=== PATIENT | female | born 1950 | race Caucasian/White ===

== ENCOUNTER 2021-05-17 15:25 | Inpatient (IN) | payer MEDICARE, SELFPAY ==
[2021-05-17] VITALS (8 sets, daily range): BP systolic 143–196; BP diastolic 69–100; PULSE 79–119; RESP 16–18; TEMP 36.9; O2SAT 89–93; BMI 49.1
--- NOTE | 2021-05-17 15:44 | ECG_ITS ---
[facility] Test Date: 2021-05-17 Pat Name: Christina Main Department: Room: Gender: Female Deposit Clerk: : 1950 Requested By: Balwinder Rascon Order Number: [id number] Zee MD: Augie Aguirre M.D. Measurements Intervals [place] Rate: 123 P: NC: QRS: -25 QRSD: 84 T: 67 QT: 309 QTc: 442 Interpretive Statements ATRIAL FIBRILLATION WITH RAPID VENTRICULAR RESPONSE BORDERLINE LEFT AXIS DEVIATION [QRS AXIS < -20] MODERATE VOLTAGE CRITERIA FOR LVH, CONSIDER NORMAL VARIANT [MEETS CRITERIA IN ONE OF: R(aVL), S(V1), R(V5), R(V5/V6)+S(V1)] NONSPECIFIC T-WAVE ABNORMALITY Compared to ECG 01/02/2019 15:31:35 T-wave abnormality now present Sinus rhythm no longer present Electronically Signed On 05-17-2021 18:01:58 CDT by Augie Aguirre M.D. [id number]
--- NOTE | 2021-05-17 15:49 | XR_ITS ---
WS: [id number] Exam: XR chest 1V portable [id number] Date/Time of Exam: 05/17/2021 3:49 PM Reason For Exam: covid pneumonia There are patchy groundglass densities noted throughout the right lung as well as the mid and lower l eft lung. Heart size is normal. The mediastinum is not widened. No pleural effusions. Regional bony e lements are intact. XR/XR chest 1V portable [id number] IMPRESSION: 1. Patchy bilateral pulmonary infiltrates most marked on the right. These findi ngs suggest acute pneumonia. Covid pneumonia can have this appearance.
--- NOTE | 2021-05-17 15:50 | W.ED.GENADLT ---
HPI - General Adult General: Chief complaint: ER Hold Stated complaint: N/V COVID EXPOSURE SOB Time Seen by Provider: 05/17/21 15:39 History of Present Illness: HPI narrative: CC: Shortness of breath, fever and generalized weakness HPI: This is a 70 yo patient w/ hx of CAD, HTN, DM, hypothyroidism presenting to the ED with malaise, generalized weakness, cough sputum production, and fever at home x 14 days. Since onset of symptoms, has had some shortness of breath and decreased PO intake. NO recent travel. Lives at home with covid positive family members. Denies chest pain, N/V, diaphoresis, exertional chest pain, GI or other complaints. Denies any pleuritic chest pain, recent surgery/immobilization/travel, or hematemesis or hx of VTE in the past. Onset: 14 days ago Duration: ongoing for the last 14 days Location: home Severity: moderate Review of Systems Narrative: Constitutional: +subjective fever, +generalized weakness HEENT: No vision changes CV: No chest pain, no palpitations PULM: +cough, +dyspnea. GI: No abdominal pain, no N/V/D. : No dysuria MSKEL: No muscle pain SKIN: No new rashes, no lesions. NEURO: No headache, no focal weakness. HEME: No visible bruises PSYCH: Normal mood PFSH ED PFSH: Medical History (Updated 05/17/21 @ 17:24 by Antoni Garcia MD) Hypertension Osteoporosis Type 2 diabetes mellitus Family History (Updated 05/17/21 @ 17:23 by Antoni Garcia MD) Other CAD (coronary artery disease) Social History (Updated 05/17/21 @ 17:23 by Antoni Garcia MD) Smoking and tobacco status: never smoked Alcohol intake: unknown Substance/Drug Use: never Caregiver/support person: Yes Lives independently: Yes Household members: family Housing: House Physical Exam Narrative: EXAM NARRATIVE: Head: Atraumatic Eyes: PERRL, conjunctiva without injection ENT: Mucous membrane moist NECK: Supple without lymphadenopathy LUNGS: Coarse lung sounds, tachypnea, no crackles/wheezes/rhonchi on exam CV: RRR ABDOMEN: Soft, nontender EXTREMITY: Normal ROM SKIN: No rash or erythema NEURO: Awake and alert. No focal motor deficits. PSYCH: Normal mood and affect. Course Vital Signs: Vital signs: Vital Signs Temperature 98.4 F 05/17/21 15:30 Pulse Rate 64 05/18/21 04:05 Respiratory Rate 20 H 05/18/21 03:57 Blood Pressure 140/74 05/18/21 02:15 Pulse Oximetry 92 05/18/21 03:57 MDM - General Adult MDM Narrative: Medical decision making narrative: 70yo patient presenting to the ED with shortness of breath, cough, and malaise concerning for pneumonia with findings of fever, decreased/junky breath sounds, and tachypnea. Workup today includes XR chest. Given History, Exam, and Workup presentation most consistent with pneumonia.Presentation not consistent with PE, COPD exacerbation, Pneumothorax, TB, Atypical ACS, Esophageal Rupture, Toxic Exposure, Foreign Body Airway Obstruction. Workup: XR Chest, COVID PCR, COVID labs Intervention: Oxygen, remdesivir, observation [3:52] On reassessment, XR findings of ground-glass opacity. Findings consistent with viral pneumonia, suspected COVID. No antigen testing currently in the hospital. PCR sent. atyolanda continues to be in moderate respiratory distress with increased work of breathing and tachypnea. O2 of 93% on 6L NC while observed in the ED. Multiple comorbidities along with no significant improvement in the ED indicates the patient is a candidate for inpatient admission. In the ED, patient went into atrial fibrillation with RVR o the 110-120s. Patient received 500cc of IVF, metropolol 5mg, and PO metoprolol 50mg. I have offered admission and the patient agrees with the plan. Patient continues to AAOx3, without significant increased work of breathing and I do not suspect the patient will decompensate on the wards requiring invasive and non-invasive positive pressure ventilation. Disposition: Admission. Lab Data: Labs: Lab Results 05/17/21 05/17/21 05/17/21 Range/Units 15:30 15:30 15:30 WBC 6.4 (4.0-10.0) 10^3/ uL RBC 4.73 (4.1-5.3) 10^6/u L Hgb 13.8 (11.5-15.3) g/dL Hct 42.7 (37.0-47.0) % MCV 90.3 (81-99) fl MCH 29.2 (28.0-34.0) pg MCHC 32.3 (30.0-36.0) g/dL RDW 12.9 (12.1-15.1) % Plt Count 280 (130-400) 10^3/c mm MPV 11.1 H (7.4-10.4) fL Neut % (Auto) 71.5 % Lymph % (Auto) 16.1 % [place] % (Auto) 8.6 % Eos % (Auto) 0.0 % Baso % (Auto) 0.2 % Neut # (Auto) 4.56 (1.8-7.7) 10^3/u L Lymph # (Auto) 1.0 (0.8-4.8) 10^3/u L [place] # (Auto) 0.6 (0.2-0.9) 10^3/u L Eos # (Auto) 0.0 (0.0-0.8) 10^3/u L Baso # (Auto) 0.0 (0.0-0.1) 10^3/u L Nucleated RBC % (a uto) 0 % Nucleated RBCs # 0.0 /100WBC PT 13.20 (12.1-14.9) SECO NDS INR 0.97 (0.8-1.2) APTT 33.4 (23.9-36.7) SECO NDS Fibrinogen 522 H (174-498) mg/dL D-Dimer 0.78 H (0-0.59) ug/mIFE U Sodium (136-145) mmol/L Potassium (3.5-5.1) mmol/L Chloride (98-107) mmol/L Carbon Dioxide (22-29) mmol/L Anion Gap (5-19) BUN (8-23) mg/dL Creatinine (0.5-0.9) mg/dL GFR Calculation (90-130) mL/min Glucose (65-115) mg/dL Calculated Osmolal ity (285-295) mOsm/k g Lactic Acid (0.5-2.2) mmol/L Calcium (8.5-10.5) mg/dL Ferritin 402 H (15-150) ng/mL Total Bilirubin (0.15-1.2) mg/dL AST (0-32) U/L ALT (0-33) U/L Alkaline Phosphata se (35-105) IU/L Lactate Dehydrogen ase 384 H (135-214) U/L Creatine Kinase (26-192) U/L Troponin T Gen 5 n g/L (0-10) ng/L C-Reactive Protein 163.9 H (0.0-4.9) mg/L NT-Pro-B Natriuret Pep 1187 H (0-125) pg/mL Total Protein (6.6-8.7) g/dL Albumin (3.5-5.2) g/dL Globulin (1.3-4.6) g/dL Procalcitonin 0.14 (0-0.5) ng/mL SARS-CoV-2 Ag (Rap id) (Negative) 05/17/21 05/17/21 05/17/21 Range/Units 15:30 15:30 15:30 WBC (4.0-10.0) 10^3/ uL RBC (4.1-5.3) 10^6/u L Hgb (11.5-15.3) g/dL Hct (37.0-47.0) % MCV (81-99) fl MCH (28.0-34.0) pg MCHC (30.0-36.0) g/dL RDW (12.1-15.1) % Plt Count (130-400) 10^3/c mm MPV (7.4-10.4) fL Neut % (Auto) % Lymph % (Auto) % [place] % (Auto) % Eos % (Auto) % Baso % (Auto) % Neut # (Auto) (1.8-7.7) 10^3/u L Lymph # (Auto) (0.8-4.8) 10^3/u L [place] # (Auto) (0.2-0.9) 10^3/u L Eos # (Auto) (0.0-0.8) 10^3/u L Baso # (Auto) (0.0-0.1) 10^3/u L Nucleated RBC % (a uto) % Nucleated RBCs # /100WBC PT (12.1-14.9) SECO NDS INR (0.8-1.2) APTT (23.9-36.7) SECO NDS Fibrinogen (174-498) mg/dL D-Dimer (0-0.59) ug/mIFE U Sodium 135 L (136-145) mmol/L Potassium 3.2 L (3.5-5.1) mmol/L Chloride 94 L (98-107) mmol/L Carbon Dioxide 22 (22-29) mmol/L Anion Gap 22.2 H (5-19) BUN 12 (8-23) mg/dL Creatinine 0.8 (0.5-0.9) mg/dL GFR Calculation 70.9 L (90-130) mL/min Glucose 314 H (65-115) mg/dL Calculated Osmolal ity 292 (285-295) mOsm/k g Lactic Acid (0.5-2.2) mmol/L Calcium 8.4 L (8.5-10.5) mg/dL Ferritin (15-150) ng/mL Total Bilirubin 0.7 (0.15-1.2) mg/dL AST 24 (0-32) U/L ALT 20 (0-33) U/L Alkaline Phosphata se 100 (35-105) IU/L Lactate Dehydrogen ase (135-214) U/L Creatine Kinase 52 (26-192) U/L Troponin T Gen 5 n g/L 13 H (0-10) ng/L C-Reactive Protein (0.0-4.9) mg/L NT-Pro-B Natriuret Pep (0-125) pg/mL Total Protein 6.6 (6.6-8.7) g/dL Albumin 3.2 L (3.5-5.2) g/dL Globulin 3.4 (1.3-4.6) g/dL Procalcitonin (0-0.5) ng/mL SARS-CoV-2 Ag (Rap id) Positive H (Negative) 05/17/21 Range/Units 16:15 WBC (4.0-10.0) 10^3/ uL RBC (4.1-5.3) 10^6/u L Hgb (11.5-15.3) g/dL Hct (37.0-47.0) % MCV (81-99) fl MCH (28.0-34.0) pg MCHC (30.0-36.0) g/dL RDW (12.1-15.1) % Plt Count (130-400) 10^3/c mm MPV (7.4-10.4) fL Neut % (Auto) % Lymph % (Auto) % [place] % (Auto) % Eos % (Auto) % Baso % (Auto) % Neut # (Auto) (1.8-7.7) 10^3/u L Lymph # (Auto) (0.8-4.8) 10^3/u L [place] # (Auto) (0.2-0.9) 10^3/u L Eos # (Auto) (0.0-0.8) 10^3/u L Baso # (Auto) (0.0-0.1) 10^3/u L Nucleated RBC % (a uto) % Nucleated RBCs # /100WBC PT (12.1-14.9) SECO NDS INR (0.8-1.2) APTT (23.9-36.7) SECO NDS Fibrinogen (174-498) mg/dL D-Dimer (0-0.59) ug/mIFE U Sodium (136-145) mmol/L Potassium (3.5-5.1) mmol/L Chloride (98-107) mmol/L Carbon Dioxide (22-29) mmol/L Anion Gap (5-19) BUN (8-23) mg/dL Creatinine (0.5-0.9) mg/dL GFR Calculation (90-130) mL/min Glucose (65-115) mg/dL Calculated Osmolal ity (285-295) mOsm/k g Lactic Acid 1.5 (0.5-2.2) mmol/L Calcium (8.5-10.5) mg/dL Ferritin (15-150) ng/mL Total Bilirubin (0.15-1.2) mg/dL AST (0-32) U/L ALT (0-33) U/L Alkaline Phosphata se (35-105) IU/L Lactate Dehydrogen ase (135-214) U/L Creatine Kinase (26-192) U/L Troponin T Gen 5 n g/L (0-10) ng/L C-Reactive Protein (0.0-4.9) mg/L NT-Pro-B Natriuret Pep (0-125) pg/mL Total Protein (6.6-8.7) g/dL Albumin (3.5-5.2) g/dL Globulin (1.3-4.6) g/dL Procalcitonin (0-0.5) ng/mL SARS-CoV-2 Ag (Rap id) (Negative) Imaging Data^: Other Imaging: Radiologist's impression: [address] [id number] ReportSigned Patient: Christina Main #: [id number]: 1950Acct#:[id number]/Sex: 70 / FADM Date: 05/17/21Loc: ERRoom/Bed:Attending Dr: Ordering Provider/Ordering MD: Balwinder Rascon MD Date of Service: 05/17/21 Procedure(s): XR chest 1V portable [id number] Accession Number(s): [id number] Report Number: [id number] WS: [id number] Exam: XR chest 1V portable [id number] Date/Time of Exam: 05/17/2021 3:49 PM Reason For Exam: covid pneumonia There are patchy groundglass densities noted throughout the right lung as well as the mid and lower left lung. Heart size is normal. The mediastinum is not widened. No pleural effusions. Regional bony elements are intact. XR/XR chest 1V portable [id number] IMPRESSION: 1. Patchy bilateral pulmonary infiltrates most marked on the right. These findings suggest acute pneumonia. Covid pneumonia can have this appearance. Dictated By:Yves Dial By:Yves Dial Date/Time:05/17/21 1605DD/ 1604 Discharge Plan Discharge Patient Disposition: Admitted As Inpatient Admit Provider: Antoni Garcia Clinical Impression: Pneumonia due to 2019-nCoV, Hypoxemia, Atrial fibrillation with RVR Condition: Stable Coding Level of Care Code ED Bit Shaver for Adriana Rankin
[2021-05-17 15:53] LABS: Basophils % 0.2 %; Hematocrit 42.7 % (37.0-47.0); Hemoglobin 13.8 g/dL (11.5-15.3); Lymphocytes % 16.1 %; Mean Corpuscular HGB Conc 32.3 g/dL (30.0-36.0); Mean Corpuscular Hemoglobin 29.2 pg (28.0-34.0); Mean Corpuscular Volume 90.3 fl (81-99); Mean Platelet Volume 11.1 fL (7.4-10.4); Monocytes # 0.6 10^3/uL (0.2-0.9); Monocytes % 8.6 %; Neutrophils # 4.56 10^3/uL (1.8-7.7); Neutrophils % 71.5 %; Nucleated Red Blood Cells % 0 %; Platelet Count 280 10^3/cmm (130-400); Red Blood Count 4.73 10^6/uL (4.1-5.3); Red Cell Distribution Width 12.9 % (12.1-15.1); White Blood Count 6.4 10^3/uL (4.0-10.0)
[2021-05-17 16:03] LABS: INR 0.97 (0.8-1.2)
[2021-05-17 16:04] LABS: Fibrinogen 522 mg/dL (174-498); Partial Thromboplastin Time 33.4 SECONDS (23.9-36.7)
[2021-05-17 16:07] LABS: D Dimer 0.78 ug/mIFEU (0-0.59)
--- NOTE | 2021-05-17 16:12 | PC.PHAR ---
pt states she takes care of her medications-pt states she takes the medications entered-pt states she takes all her meds in the am except for the gabapentin tid
[2021-05-17 16:18] LABS: Troponin T (5th) Once 13 ng/L (0-10)
[2021-05-17 16:25] LABS: NT Pro B Type Natriuretic Pept 1187 pg/mL (0-125); Procalcitonin 0.14 ng/mL (0-0.5)
--- NOTE | 2021-05-17 16:34 | CTR_ITS ---
PROCEDURE INFORMATION: Exam: CTA Chest With Contrast Exam date and time: 05/17/2021 4:34 PM Age: 70 years old Clinical indication: Shortness of breath; Additional info: Evaluate for pe. SOB, back pain, weakness TECHNIQUE: Imaging protocol: Computed tomographic angiography of the chest with contrast. 3D rendering (Not supervised by radiologist): MIP and/or 3D reconstructed images were created by the technologist. Radiation optimization: All CT scans at this facility use at least one of these dose optimization techniques: automated exposure control; mA and/or kV adjustment per patient size (includes targeted exams where dose is matched to clinical indication); or iterative reconstruction. Contrast material: VISI 320; Contrast volume: 84 ml; Contrast route: INTRAVENOUS (IV); COMPARISON: No relevant prior studies available. RADIATION DOSE METRICS: Total DLP (mGy-cm): 515.76 FINDINGS: Pulmonary arteries: Normal. No pulmonary emboli. Aorta: Unremarkable. No aortic aneurysm. No aortic dissection. Lungs: Patchy bilateral airspace opacities consistent with an infectious process. Pleural spaces: Unremarkable. No pneumothorax. No pleural effusion. Heart: Unremarkable. No cardiomegaly. No pericardial effusion. Lymph nodes: Unremarkable. No enlarged lymph nodes. Liver: Hepatic steatosis. Bones/joints: Unremarkable. No acute fracture. Soft tissues: Unremarkable. CT/CT angio chest PE protcl [id number] IMPRESSION: 1. Negative for pulmonary embolus 2. Patchy bilateral airspace opacities consistent with an infectious process. 3. Hepatic steatosis. Radiation Dose CTDIVOL = (mGy): DLP = 515.76 (mGy-cm)
[2021-05-17 16:36] LABS: C Reactive Protein 163.9 mg/L (0.0-4.9); Ferritin 402 ng/mL (15-150); Lactate Dehydrogenase 384 U/L (135-214)
--- NOTE | 2021-05-17 16:41 | P.HP_ITS ---
Providers/Chief Complaint Primary Care Provider: Delmer Green DO Chief Complaint: N/V COVID EXPOSURE SOB History of Present Illness Christina Main is a 70 year old female with past medical history of hypertension, type 2 diabetes mellitus, osteoporosis presented to the ER today because of worsening myalgias for last 2 weeks, difficulty in breathing and cough for last 3 days. Patient states she lives with her who tested positive around 4 days ago and is admitted to hospital for now. Blood work in the ER showed a white count 6.4, hemoglobin 13.8, D-dimer 0.78, sodium 135, potassium 3.2, creatinine 0.8, lactate of 1.5, ferritin of 408, CPK of 52, CRP of 163, proBNP of 1100 please chest x-ray as below. Review of Systems General: Reports: 10 or more systems reviewed and unremarkable except in HPI and below Const: Denies: fever(s), chills, body aches, change in appetite, change in weight, malaise, night sweats, diaphoresis, change in sleep pattern, daytime sleepiness or snoring Eyes: Denies: change in vision, blurry vision, photophobia, eye discomfort or eye discharge ENMT: Denies: throat pain, enlarged tonsils, hoarseness, mouth pain, oral sores, dry mouth, tinnitus, nasal congestion or post nasal drip Card: Denies: chest pain, palpitations, irregular heart rhythm, edema, swelling of feet/ankles, lightheadedness, syncope, pre-syncope, dyspnea on exertion, orthopnea, leg pain with exertion or acrocyanosis Resp: Denies: dyspnea, productive cough, non-productive cough, wheezing, stridor, pain on inspiration, change in phlegm color, hemoptysis or chest congestion GI: Denies: abdominal pain, nausea, vomiting, hematemesis, coffee ground emesis, dysphagia, heartburn, diarrhea, constipation, bloating, GI cramping, change in bowel habits, pain on defecation, hematochezia or melena : Denies: flank pain, dysuria, urinary frequency, urinary urgency, urinary hesitancy, nocturia or hematuria Musc: Denies: neck pain, back pain, extremity pain, joint pain, joint swelling, joint redness, joint stiffness or limited range of motion Neuro: Denies: headache(s), numbness in extremities, weakness in extremities, sensory changes, lack of coordination, difficulty walking, frequent falls, dizziness, vertigo, confusion, Slurred speech present, difficulty communicating thoughts or seizure-like activity Psych: Denies: anxiety, depression, mood swings, panic attacks, hopelessness or irritability Endo: Denies: polyuria, polydipsia, tired all the time, cold intolerance, excessive sweating, flushing or heat intolerance Damian/Lymph: Denies: easy bruising or easy bleeding All/Imm: Denies: tongue swelling, facial swelling or acute wheezing Medications/Allergies Home Medications Medication Instructions Recorded Confirmed Last Taken Type allopurinol 300 mg PO QAM 05/17/21 05/17/21 05/17/21 14:00 History amlodipine 10 mg PO QAM 05/17/21 05/17/21 05/17/21 14:00 History dulaglutide [Trulicity] 1.5 mg SUBCUT Q7D 05/17/21 05/17/21 05/17/21 History duloxetine 30 mg PO QAM 05/17/21 05/17/21 05/17/21 14:00 History esomeprazole magnesium 20 mg PO QAM 05/17/21 05/17/21 05/17/21 14:00 History gabapentin 400 mg PO TID 05/17/21 05/17/21 05/17/21 14:00 History levothyroxine [Synthroid] 137 mcg PO QAM 05/17/21 05/17/21 05/17/21 14:00 History losartan 100 mg PO QAM 05/17/21 05/17/21 05/17/21 14:00 History ondansetron HCl 4 mg PO Q6H PRN 05/17/21 05/17/21 05/17/21 History pioglitazone 45 mg PO QAM 05/17/21 05/17/21 05/17/21 14:00 History raloxifene 60 mg PO QAM 05/17/21 05/17/21 05/17/21 14:00 History Allergies Allergy/AdvReac Type Severity Reaction Status Date / Time oxycodone Allergy ADR/ALGY-Pa Verified 05/17/21 16:11 lpitations sulfamethoxazole Allergy ADR-Nausea Verified 05/17/21 16:11 [From Bactrim] trimethoprim [From Bactrim] Allergy ADR-Nausea Verified 05/17/21 16:11 PFSH Acute PFSH: Medical History (Updated 05/17/21 @ 17:24 by Antoni Garcia MD) Hypertension Osteoporosis Type 2 diabetes mellitus Family History (Updated 05/17/21 @ 17:23 by Antoni Garcia MD) Other CAD (coronary artery disease) Social History (Updated 05/17/21 @ 17:23 by Antoni Garcia MD) Smoking and tobacco status: never smoked Alcohol intake: unknown Substance/Drug Use: never Caregiver/support person: Yes Lives independently: Yes Household members: family Housing: House Vitals/I&O/Wt Last Vital Signs Temp 98.4 F 05/17/21 15:30 Pulse 96 05/17/21 15:30 Resp 18 05/17/21 15:30 BP 166/100 05/17/21 15:30 Pulse Ox 90 05/17/21 15:39 Weight last 48 hrs Weight 117.934 kg Physical Exam Narrative: EXAM NARRATIVE: General: No acute distress, AO x3, morbidly obese on 6 L HEENT: PERRLA, pupils bilaterally equal and reactive Chest: Normal vesicular breath sounds, no added sounds, equal good air entry bilaterally CVS: S1-S2 regular, no murmurs, no tachycardia, no gallops, no rubs Abdomen: Soft, nontender, no organomegaly, bowel sounds present Neuro: No focal deficits, no facial deformity, AO x3, power 5/5 in all limbs Data : 05/17/21 15:30 05/17/21 15:30 A&P Assessment and plan (1) Hypoxemia: Status: Acute (2) Pneumonia due to 2019-nCoV: Status: Suspected (3) Bilateral pneumonia: Status: Acute (4) Atrial fibrillation with RVR: Status: Acute (5) Type 2 diabetes mellitus: Status: Acute (6) Hypertension: Status: Acute (7) Afib: Status: Acute Additional A&P Information Hypoxemia secondary to bilateral pneumonia: As per the history most likely Covid pneumonia. Covid PCR still pending. Oxygen supplementation keeping saturation over 88%. Check sputum culture, procalcitonin, urine Legionella, bacterial antigen, blood culture, MRSA swab. High suspicion of bacterial pneumonia as well. For now start patient on vancomycin and ceftriaxone and azithromycin to cover for severe community-acquired pneumonia. Dexamethasone 6 mg daily. Remdesivir to finish a 5-day course. Vitamin C, zinc. Advair, Spiriva. Pulmonary toilet with incentive spirometry flutter valve. We will monitor inflammatory markers including ferritin, ESR, CRP, D-dimer, fibrinogen. If getting elevated will dose Actemra. Patient was made aware of the same and he has given verbal consent. D-dimer elevated. Check CTA. For now start patient on Eliquis 5 mg twice daily. Will monitor for anemia or blood loss. Strict input output charting, daily weights. Hypertension: Goal blood pressure less than 140/90 mmHg. Continue with home dose of amlodipine, losartan. Type 2 diabetes mellitus: Stop OHA's. Insulin sliding scale at moderate dose protocol. Hypothyroidism: Continue home dose of levothyroxine. Atrial fibrillation. No known history. Start on metoprolol 50 mg twice daily. If patient has atrial fibrillation for more than 48 hours will need long-term anticoagulation. As patient's COVID-19 is still pending for now we will admit the patient to [facility]. Will transfer to to weigh once COVID-19 comes back positive. Full code. Eliquis will be DVT prophylaxis with. Protonix for PUD prophylaxis. Cardiac carb consistent diet. Attestations Medical Necessity Statement*: Admission for more than 2 midnights for management of hypoxemia secondary to bilateral pneumonia, possible COVID-19 pneumonia. Time Spent in Patient Care: Greater than 35 minutes (>than 50% of time spent in counselling and/or direct pt care on unit) . Coding Level of Care Code Acute [place] [employer] for [facility] Diagnoses Hypoxemia R09.02 Pneumonia due to 2019-nCoV U07.1; J12.82 Bilateral pneumonia J18.9 Atrial fibrillation with RVR I48.91 Type 2 diabetes mellitus E11.9 Hypertension I10 Afib I48.91
[2021-05-17 16:42] LABS: Lactic Sepsis W/Reflex 1.5 mmol/L (0.5-2.2)
[2021-05-17 17:05] LABS: Alanine Aminotransferase 20 U/L (0-33); Albumin Level 3.2 g/dL (3.5-5.2); Alkaline Phosphatase 100 IU/L (35-105); Anion Gap 22.2 (5-19); Aspartate Amino Transferase 24 U/L (0-32); Blood Urea Nitrogen 12 mg/dL (8-23); Calcium 8.4 mg/dL (8.5-10.5); Carbon Dioxide 22 mmol/L (22-29); Chloride 94 mmol/L (98-107); Creatine Phosphokinase 52 U/L (26-192); Globulin 3.4 g/dL (1.3-4.6); Glomerular Filtration Rate 70.9 mL/min (90-130); Glucose 314 mg/dL (65-115); Osmolality Calculated 292 mOsm/kg (285-295); Potassium 3.2 mmol/L (3.5-5.1); Sodium 135 mmol/L (136-145); Total Bilirubin 0.7 mg/dL (0.15-1.2); Total Protein 6.6 g/dL (6.6-8.7)
[2021-05-17 17:26] LABS: SARS Covid-2 Antigen Positive (Negative)
[2021-05-17] MEDS: cefTRIAXone 1,000 MG in sodium chloride 0.9% (plus) 50 ML 100 MG IV (17:36)
[2021-05-17] MEDS: sodium chloride 0.9% 250 ML IV (17:36)
[2021-05-17] MEDS: metoprolol tartrate 1 mg/1 mL SDV 5 mL 5 MG IVP (17:37)
[2021-05-17] MEDS: dexamethasone 4 mg/mL INJ 6 MG IVP (17:37)
[2021-05-17] MEDS: remdesivir 200 MG in sodium chloride 0.9% (100 ml) 100 ML 100 MG IV (17:37)
[2021-05-17] MEDS: iodixanol 320 mg/mL 100mL Btl IV (18:42)
--- NOTE | 2021-05-17 19:14 | PC.NURSE ---
Report from YASMIN Jenkins
--- NOTE | 2021-05-17 20:28 | PC.NURSE ---
Pt SATS consistently ranging from 84%-89% on 6L O2 via NC. Placed pt on 10L O2 via NRB temporarily and called Dr. Painting. She ordered that pt be placed on heated high flow NC. Called RT. Pt appears to be in NAD at this time.
--- NOTE | 2021-05-17 20:58 | PC.NURSE ---
Unable to provide urine specimen; bedside toilet in room. Asked pt to call out when she is able to provide urine.
[2021-05-17] MEDS: benzonatate 100 mg Capsule PO (21:50)
[2021-05-17] MEDS: azithromycin 500 MG in sodium chloride 0.9% 250 ML 250 MG IV (21:50)
[2021-05-17] MEDS: apixaban 5 mg Tablet PO (22:32)
[2021-05-17] MEDS: famotidine 20 mg/2 mL INJ IVP (22:33)
[2021-05-17 22:40] LABS: Glucose Point of Care 468 mg/dL (70-110)
[2021-05-17 23:26] LABS: Bilirubin Urine 1+ (Negative); Blood Urine Neg (Negative); Glucose Urine UA 4+ (Normal); Ketones Urine 1+ (Negative); Leukocyte Esterase Urine Negative (Negative); Nitrate Urine Negative (Negative); Protein Urine 1+ (Negative); Urine Appearance Clear (CLEAR); Urine Color Dark Yellow (Yellow); Urobilinogen Urine 1 mg/dL (Negative); pH Urine 5 (5-7)
[2021-05-17 23:27] LABS: Add Urine Culture? No; Add Urine Microscopic? YES; Amorphous Sediment Urine TRACE /hpf; Bacteria Urine TRACE /hpf; Fine Granular Casts Urine 0-4 /lpf; Hyaline Casts Urine 0-4 /lpf; Mucus Urine 1+ /hpf; RBC Urine 0-4 /hpf (0-2); Squamous Epithelial Cell Urine 0-4 /hpf (0-5); WBC Urine 0-4 /hpf (0-5)
[2021-05-18] VITALS (21 sets, daily range): BP systolic 108–141; BP diastolic 54–76; PULSE 59–80; RESP 12–26; TEMP 36.4–36.8; O2SAT 89–93
--- NOTE | 2021-05-18 00:13 | PC.PHAR ---
Pharmacokinetic dosing service Date: 05/18/21 Time: 29 Objective: Patient: Christina Main Floor: er-14 Age: 70 yo Serum creatinine: 0.8 mg/dL Height: 61.0 Inches Weight (kg): 117.934 Diagnosis: Relevant medical/social history: Cultures and sensitivities: Other labs: Assessment: IBW (kg): 47.80 Dosing wt(kg): 117.934 Estimated Creatinine clearance (ml/min): 49.4 CRCL method: Cockcroft and Gault using ibw(default). Drug selected: Vancomycin Loading dose (mg): 0 Vd (liters): 106.1 (factor used: 0.9 L/kg) Tye (hr-1): 0.045 Half life (hrs): 15.40 Recommended dose: 1500 mg Interval: 18 hrs Infusion time (hrs): 1.5 Predicted peak (mcg/mL): 24.6 Predicted trough (mcg/mL): 11.71 Total body weight is being used for vancomycin dosing. Renal function is stable [ ] /unstable [ ] Recommendations: Give Vancomycin 1500 mg q 18 hrs with an expected Cpeak of 24.6 mcg/ml and an expected Ctrough of 11.71 mcg/ml Renal dosing of other antibiotics (review renal dosing of other medications and list guidelines here): Thank you for the consult, will continue to follow. Signature: Mara Collazo [facility]
[2021-05-18] MEDS: vancomycin 1,500 MG/300 ML PIGGYBACK 200 MG IV ×2 (01:40→20:24)
[2021-05-18] MEDS: ipratropium-albuterol 3 mL Neb INHALATION ×6 (01:45→20:10)
[2021-05-18 05:13] LABS: Magnesium 1.9 mg/dL (1.7-2.3); Phosphorus 2.4 mg/dL (2.5-4.5)
[2021-05-18 05:21] LABS: C Reactive Protein 184.9 mg/L (0.0-4.9)
[2021-05-18 05:36] LABS: D Dimer 0.63 ug/mIFEU (0-0.59)
--- NOTE | 2021-05-18 06:00 | XRR_ITS ---
PROCEDURE INFORMATION: Exam: XR Chest Exam date and time: 05/18/2021 6:00 AM Age: 70 years old Clinical indication: Shortness of breath; Patient HX: F/u covid. On high flow oxygen. TECHNIQUE: Imaging protocol: XR of the chest. Views: 1 view. Total images: 1 COMPARISON: CR XR chest 1V portable [id number] 05/17/2021 3:50 PM FINDINGS: Lungs: Bilateral pulmonary opacities are again noted and appear unchanged. Pleural spaces: Unremarkable. No pleural effusion. No pneumothorax. Heart/Mediastinum: Heart is enlarged but stable when compared to the prior exam. Bones/joints: Osseous structures are unchanged from the prior exam. XR/XR chest 1V portable [id number] IMPRESSION: 1. Heart is enlarged but stable when compared to the prior exam. 2. Bilateral pulmonary opacities are again noted and appear unchanged.
[2021-05-18 06:19] LABS: Erythrocyte Sedimentation Rate 51 mm/hr (0-15)
[2021-05-18] MEDS: duloxetine 30 mg Capsule PO (06:21)
[2021-05-18] MEDS: amlodipine 10 mg Tablet PO (06:21)
[2021-05-18] MEDS: allopurinol 300 mg Tablet PO (06:21)
[2021-05-18] MEDS: pioglitazone 30 mg Tablet 45 MG PO (06:22)
[2021-05-18] MEDS: levothyroxine 137 mcg Tablet PO (06:22)
[2021-05-18] MEDS: losartan 50 mg Tablet 100 MG PO (06:22)
[2021-05-18] MEDS: pantoprazole DR 40 mg Tablet PO (06:22)
[2021-05-18 07:43] LABS: Glucose Point of Care 391 mg/dL (70-110)
[2021-05-18] MEDS: budesonide 0.5 mg/2 mL Neb INHALATION ×2 (08:01→20:10)
[2021-05-18] MEDS: gabapentin 400 mg Capsule PO (08:58)
[2021-05-18] MEDS: apixaban 5 mg Tablet PO ×2 (08:58→20:24)
[2021-05-18] MEDS: zinc gluconate 50 mg Tablet PO (08:58)
[2021-05-18] MEDS: metoprolol tartrate 50 mg Tablet PO ×2 (08:58→20:24)
[2021-05-18] MEDS: ascorbic acid 500 mg Tablet 1000 MG PO ×2 (08:59→17:27)
[2021-05-18] MEDS: famotidine 20 mg/2 mL INJ IVP ×2 (08:59→22:34)
[2021-05-18] MEDS: benzonatate 100 mg Capsule PO ×3 (08:59→20:24)
--- NOTE | 2021-05-18 11:45 | P.PN_ITS ---
Subjective Subjective: Interval history: Today morning patient seen in the ER. Overnight was transitioned over to heated high flow. Currently on 45 L 60% saturating 91%. Blood sugars have been running on the higher side. Patient feels weak and tired. Does not have incentive spirometry flutter valve presently. No documented urine output in system. Vitals/I&O/Wt Last Vital Signs Temp 98.4 F 05/17/21 15:30 Pulse 75 05/18/21 08:19 Resp 18 05/18/21 08:02 BP 141/63 05/18/21 08:00 Pulse Ox 91 05/18/21 08:02 05/17/21 05/18/21 05/18/21 22:59 06:59 14:59 Intake Total 400 / 400 250 / 650 Balance 400 / 400 250 / 650 Weight last 48 hrs Weight 117.934 kg Physical Exam Narrative: EXAM NARRATIVE: General: No acute distress, AO x3, morbidly obese HEENT: PERRLA, pupils bilaterally equal and reactive Chest: Normal vesicular breath sounds, no added sounds, equal good air entry bilaterally CVS: S1-S2 regular, no murmurs, no tachycardia, no gallops, no rubs Abdomen: Soft, nontender, no organomegaly, bowel sounds present Neuro: No focal deficits, no facial deformity, AO x3, power 5/5 in all limbs Urinary Catheter Management^: Angelo: Cath Placed During This Visit: yes Reason for Continuing Indwelling Catheter: Accurate Measurement of Urinary Output in Critically Ill Patients Urinary Catheter Date of Insertion: 05/17/21 Urinary Catheter Time of Insertion: 23:00 Data : 05/18/21 04:20 05/18/21 04:20 Micro: Microbiology 05/17/21 19:53 MRSA Culture - Final Nose 05/17/21 23:00 Bacterial Antigens - Final Urine,Voided 05/17/21 23:00 Legionella Urinary Antigen - Final Urine Catheterized A&P Assessment and plan (1) Hypoxemia: Status: Acute (2) Pneumonia due to 2019-nCoV: Status: Suspected (3) Bilateral pneumonia: Status: Acute (4) Atrial fibrillation with RVR: Status: Acute (5) Type 2 diabetes mellitus: Status: Acute (6) Hypertension: Status: Acute (7) Afib: Status: Acute Additional A&P Information Hypoxemia secondary COVID-19 pneumonia: Moderate disease. Oxygen supplementation keeping saturation over 88%. Screen negative, urine Legionella, bacterial antigen negative, MRSA swab. Blood culture still not drawn. For now continue with vancomycin, ceftriaxone and azithromycin. Dexamethasone 6 mg daily. Remdesivir to finish a 5-day course. Vitamin C, zinc. DuoNeb every 4 hour, budesonide twice daily Pulmonary toilet with incentive spirometry flutter valve. We will monitor inflammatory markers including ferritin, ESR, CRP, D-dimer, fibrinogen. Inflammatory markers trending up. Patient requiring higher oxygen supplementation will give 1 dose of Actemra today. D-dimer elevated. CTA negative for pulmonary embolism. For now start patient on Eliquis 5 mg twice daily as patient is still requiring high oxygen supplementation. Most likely will need anticoagulation for at least 14 days as an outpatient. Will monitor for anemia or blood loss. Strict input output charting, daily weights. Try to keep net negative as possible. IV Lasix 40 mg stat. Echocardiogram. Hypertension: Goal blood pressure less than 140/90 mmHg. Continue with home dose of amlodipine, losartan. Type 2 diabetes mellitus: Stop OHA's. Blood sugars elevated. Insulin sliding scale high-dose protocol. Lantus 30 units twice daily. Hypothyroidism: Continue home dose of levothyroxine. Atrial fibrillation: Rate better controlled. No known history. Continue with metoprolol 50 mg twice daily. If patient has atrial fibrillation for more than 48 hours will need long-term anticoagulation. Full code. Eliquis will be DVT prophylaxis with. Protonix for PUD prophylaxis. Cardiac carb consistent diet. Attestations Medical Necessity Statement*: Requires further hospitalization for management of severe hypoxia secondary COVID-19 pneumonia, atrial fibrillation Time Spent in Patient Care: Greater than 35 minutes (>than 50% of time spent in counselling and/or direct pt care on unit) . Coding Level of Care Code Acute Health Specialist for [facility] Fwd Diagnoses Hypoxemia R09.02 Pneumonia due to 2019-nCoV U07.1; J12.82 Bilateral pneumonia J18.9 Atrial fibrillation with RVR I48.91 Type 2 diabetes mellitus E11.9 Hypertension I10 Afib I48.91
[2021-05-18 11:51] LABS: Glucose Point of Care 409 mg/dL (70-110)
[2021-05-18 13:25] LABS: Basophils % 0.2 %; Hematocrit 37.3 % (37.0-47.0); Hemoglobin 11.9 g/dL (11.5-15.3); Lymphocytes # 0.6 10^3/uL (0.8-4.8); Lymphocytes % 11.3 %; Mean Corpuscular HGB Conc 31.9 g/dL (30.0-36.0); Mean Corpuscular Hemoglobin 29.2 pg (28.0-34.0); Mean Corpuscular Volume 91.4 fl (81-99); Mean Platelet Volume 11.2 fL (7.4-10.4); Monocytes # 0.5 10^3/uL (0.2-0.9); Monocytes % 9.3 %; Neutrophils # 3.77 10^3/uL (1.8-7.7); Neutrophils % 74.8 %; Nucleated Red Blood Cells % 0 %; Platelet Count 266 10^3/cmm (130-400); Red Blood Count 4.08 10^6/uL (4.1-5.3); Red Cell Distribution Width 13.1 % (12.1-15.1)
[2021-05-18 13:34] LABS: Alanine Aminotransferase 20 U/L (0-33); Albumin Level 3.1 g/dL (3.5-5.2); Alkaline Phosphatase 92 IU/L (35-105); Anion Gap 19.6 (5-19); Aspartate Amino Transferase 23 U/L (0-32); Blood Urea Nitrogen 19 mg/dL (8-23); Calcium 8.1 mg/dL (8.5-10.5); Carbon Dioxide 24 mmol/L (22-29); Chloride 98 mmol/L (98-107); Globulin 2.4 g/dL (1.3-4.6); Glomerular Filtration Rate 54.8 mL/min (90-130); Glucose 424 mg/dL (65-115); Osmolality Calculated 306 mOsm/kg (285-295); Potassium 3.6 mmol/L (3.5-5.1); Sodium 138 mmol/L (136-145); Total Bilirubin 0.3 mg/dL (0.15-1.2); Total Protein 5.5 g/dL (6.6-8.7)
[2021-05-18] MEDS: FUROsemide 10 mg/mL SDV 4mL 40 MG IVP (16:23)
[2021-05-18] MEDS: dexamethasone 4 mg/mL INJ 6 MG IVP (16:26)
[2021-05-18] MEDS: tocilizumab 800 MG in sodium chloride 0.9% (100 ml) 100 ML 100 MG IV (17:07)
[2021-05-18] MEDS: potassium chloride ER 20 mEq Tablet 40 MEQ PO (17:08)
[2021-05-18 17:30] LABS: Glucose Point of Care 362 mg/dL (70-110)
[2021-05-18] MEDS: remdesivir 100 MG in sodium chloride 0.9% (100 ml) 100 ML IV (18:40)
[2021-05-18] MEDS: insulin glargine 100 units/1 mL 30 UNIT SUBCUT (19:46)
[2021-05-18 20:56] LABS: Glucose Point of Care 300 mg/dL (70-110)
[2021-05-18] MEDS: azithromycin 500 MG in sodium chloride 0.9% 250 ML 250 MG IV (21:09)
[2021-05-19] VITALS (82 sets, daily range): BP systolic 114–159; BP diastolic 56–92; PULSE 52–100; RESP 12–28; TEMP 36.4–36.8; O2SAT 87–95
[2021-05-19] MEDS: ipratropium-albuterol 3 mL Neb INHALATION ×6 (00:05→20:00)
[2021-05-19] MEDS: cefTRIAXone 1,000 MG in sodium chloride 0.9% (plus) 50 ML 100 MG IV ×2 (00:10→19:59)
[2021-05-19 00:19] LABS: Glucose Point of Care 253 mg/dL (70-110)
[2021-05-19 05:24] LABS: Basophils % 0.3 %; Hematocrit 39.2 % (37.0-47.0); Hemoglobin 12.6 g/dL (11.5-15.3); Lymphocytes # 0.7 10^3/uL (0.8-4.8); Lymphocytes % 9.4 %; Mean Corpuscular HGB Conc 32.1 g/dL (30.0-36.0); Mean Corpuscular Hemoglobin 29.9 pg (28.0-34.0); Mean Corpuscular Volume 92.9 fl (81-99); Mean Platelet Volume 11.7 fL (7.4-10.4); Monocytes # 0.6 10^3/uL (0.2-0.9); Monocytes % 7.8 %; Neutrophils # 5.74 10^3/uL (1.8-7.7); Neutrophils % 79.5 %; Nucleated Red Blood Cells % 0 %; Platelet Count 372 10^3/cmm (130-400); Red Blood Count 4.22 10^6/uL (4.1-5.3); Red Cell Distribution Width 13.1 % (12.1-15.1); White Blood Count 7.2 10^3/uL (4.0-10.0)
[2021-05-19] MEDS: losartan 50 mg Tablet 100 MG PO (05:51)
[2021-05-19] MEDS: amlodipine 10 mg Tablet PO (05:51)
[2021-05-19] MEDS: duloxetine 30 mg Capsule PO (05:51)
[2021-05-19] MEDS: levothyroxine 137 mcg Tablet PO (05:51)
[2021-05-19] MEDS: allopurinol 300 mg Tablet PO (05:51)
--- NOTE | 2021-05-19 06:00 | USCV_ITS ---
Christina Main Age: 70 Gender: F : 1950 Exam Date: 05/19/2021 09:13 Ordering Phys: Antoni Garcia MD Technologist: Yolis Traylor Exam Location: [facility] [place] Indication: Covid, pna, chf BP: 129 / 69 HR: 67 Rhythm: Sinus Technical Quality: Fair MEASUREMENTS (Male / Female) Normal Values 2D ECHO LV Diastolic Diameter PLAX 5.2 cm 4.2 - 5.9 / 3.9 - 5.3 cm LV Systolic Diameter PLAX 2.9 cm LV Chamber Size 4.5 cm IVS Diastolic Thickness 1.1 cm 0.6 - 1.0 / 0.6 - 0.9 cm IVS Systolic Thickness 1.7 cm LVPW Diastolic Thickness 1.2 cm 0.6 - 1.0 / 0.6 - 0.9 cm LVPW Systolic Thickness 1.4 cm RV Chamber Size 3.1 cm LVOT Diameter 1.8 cm LV Ejection Fraction 2D Teich 76.1 % LV Ejection Fraction MOD 2C 61.1 % LV Ejection Fraction 2C AL 63.6 % LA Diameter 3.7 cm LA Width 3.8 cm LA Height 6.4 cm RA Width 3.5 cm RA Height 5.1 cm Aorta at Sinotubular Diameter 2.4 cm M-MODE LV Diastolic Diameter MM 5.8 cm 4.2 - 5.9 / 3.9 - 5.3 cm LV Systolic Diameter MM 3.7 cm LV Ejection Fraction MM Teich 65.4 % IVS Diastolic Thickness MM 1.2 cm 0.6 - 1.0 / 0.6 - 0.9 cm IVS Systolic Thickness MM 1.7 cm LVPW Diastolic Thickness MM 1.3 cm 0.6 - 1.0 / 0.6 - 0.9 cm LVPW Systolic Thickness MM 2.0 cm RV Diastolic Diameter MM 0.8 cm Aortic Annulus Diameter 3.3 cm LA Ao Ratio MM 1.4 MV E Point Septal Separation 0.7 cm DOPPLER AV Peak Velocity 139.0 cm/s LVOT Peak Velocity 93.0 cm/s AV Area Cont Eq vti 1.8 cm squared AV Area Cont Eq pk 1.7 cm squared MV Area PHT 3.4 cm squared Mitral E to A Ratio 1.1 MV E' Velocity 58.0 cm/s Mitral E to MV E' Ratio 11.9 Mitral E to LV E' Lateral Ratio 13.6 Mitral E to LV E' Septal Ratio 10.7 TR Peak Velocity 225.0 cm/s TR Peak Gradient 20.3 mmHg TV Peak E Velocity 68.0 cm/s Right Atrial Pressure 3.0 mmHg Pulmonary Artery Systolic Pressu 23.3 mmHg PV Peak Velocity 76.0 cm/s RV Acceleration Time 0.1 s RV Ejection Time 0.3 s RV AcT/ET 0.4 FINDINGS Left Ventricle Normal left ventricular size. LV systolic function is normal with EF of 55-60%. No regional wall motion abnormalities. Normal diastolic filling pattern. Right Ventricle The right ventricle is normal in size and function. Right Atrium The right atrium is normal in size. Left Atrium The left atrium is dilated Mitral Valve Structurally normal mitral valve without significant stenosis or prolapse. There is mild mitral regurgitation. Aortic Valve Structurally normal aortic valve without significant sclerosis or stenosis. There is no aortic regurgitation. Tricuspid Valve Structurally normal tricuspid valve without significant stenosis or regurgitation. Insufficient TR jet to calculate RVSP Pulmonic Valve Structurally normal pulmonic valve without significant stenosis. There is no pulmonic regurgitation. Pericardium Normal pericardium without effusion. Aorta Normal ascending aorta dimension. CONCLUSIONS LV systolic function is normal with EF of 55-60%. Normal diastolic function Mild mitral regurgitation Mildly dilated left atrium No comparison studies are available Augie Aguirre MD (Electronically Signed) Final Date: 19 May 2021 18:44 S
[2021-05-19 06:40] LABS: Glucose Point of Care 251 mg/dL (70-110)
[2021-05-19 07:25] LABS: Alanine Aminotransferase 16 U/L (0-33); Albumin Level 2.7 g/dL (3.5-5.2); Alkaline Phosphatase 82 IU/L (35-105); Anion Gap 16.4 (5-19); Aspartate Amino Transferase 20 U/L (0-32); Blood Urea Nitrogen 26 mg/dL (8-23); Calcium 8.7 mg/dL (8.5-10.5); Carbon Dioxide 24 mmol/L (22-29); Chloride 98 mmol/L (98-107); Globulin 3.1 g/dL (1.3-4.6); Glomerular Filtration Rate 49.1 mL/min (90-130); Glucose 246 mg/dL (65-115); NT Pro B Type Natriuretic Pept 561 pg/mL (0-125); Osmolality Calculated 293 mOsm/kg (285-295); Potassium 3.4 mmol/L (3.5-5.1); Sodium 135 mmol/L (136-145); Total Bilirubin 0.2 mg/dL (0.15-1.2); Total Protein 5.8 g/dL (6.6-8.7)
[2021-05-19] MEDS: budesonide 0.5 mg/2 mL Neb INHALATION ×2 (08:49→20:00)
[2021-05-19] MEDS: insulin glargine 100 units/1 mL 30 UNIT SUBCUT ×2 (09:05→17:58)
[2021-05-19] MEDS: ascorbic acid 500 mg Tablet 1000 MG PO (09:06)
[2021-05-19] MEDS: apixaban 5 mg Tablet PO ×2 (09:06→21:03)
[2021-05-19] MEDS: benzonatate 100 mg Capsule PO ×3 (09:06→21:03)
[2021-05-19] MEDS: zinc gluconate 50 mg Tablet PO (09:06)
[2021-05-19 09:14] LABS: ABG PCO2 43.9 mmHg (35-45); ABG PH Result 7.39 (7.35-7.45); Alveolar-Arterial Oxygen Gradi 78.9 mmHg (5-10); Base Excess ABG 1.4 mmol/L (-2.0-2.0); Blood Gas Allen Test Pos; Blood Gas Operator Identificat glc; Blood Gas Sample Site Radial, right; Blood Gas Sample Type Arterial; Carboxyhemoglobin 0.5 %THgb (0.4-20.1); HCO3 ABG 26.7 mmol/L (22-26); HGB O2 Sat 87.9 % (95-100); Ionized Calcium Level - ABG 1.2 mmol/L (1.1-1.4); Methemoglobin 0.5 % (0.4-1.5); Oxygen Device BIPAP; Oxygen Saturation ABG 88.7; PO2 ABG 53.8 mmHg (80.0-100.0); Potassium Level - ABG 3.3 mmol/L (3.5-5.0); Total Hemoglobin 13.1 g/dL (12-16)
[2021-05-19 12:27] LABS: Glucose Point of Care 271 mg/dL (70-110)
--- NOTE | 2021-05-19 13:40 | PM.PN ---
Subjective Subjective: Interval history: Patient not doing so well. Currently she is on 100% BiPAP ventilation saturating 92%. On examination she is comfortable, alert oriented. Denies any discomfort or pain. States she is not out of breath. Hemodynamically has remained stable. We had a long discussion about goals of care and CODE STATUS. We discussed that unfortunately patient is requiring high oxygen supplementation at present to maintain her saturations over 90%. We discussed this is most likely secondary to Covid pneumonia. We also discussed that going forward if she not able to maintain her ventilation and saturation only option would be to put her put her on a ventilator. Patient asks water her chances if she goes on a ventilator at that point we discussed that it is seen with patients with COVID-19 unfortunately if the end up on a ventilator they are very sick and the chances of mortality is a little higher as compared to when not on the ventilator along with the fact that the complications are more. Patient states she values her quality of life more than yes life and would not want to be on a mechanical ventilator. Patient's case discussed in detail with her son Mr. Vega over the phone as well. Also offered Mr. Vega that he can come in and visit his mother if he wishes. He states he also has Covid right now and will try to talk to Ms. Escalante on the phone. Vitals/I&O/Wt Last Vital Signs Temp 97.8 F 05/19/21 12:00 Pulse 64 05/19/21 12:00 Resp 22 H 05/19/21 12:00 BP 136/69 05/19/21 12:00 Pulse Ox 91 05/19/21 12:00 05/18/21 05/19/21 05/19/21 22:59 06:59 14:59 Intake Total 560 / 560 700 / 1260 Output Total 700 / 700 350 / 1050 Balance -140 / -140 350 / 210 Weight last 48 hrs Weight 131.905 kg Weight 117.934 kg Physical Exam Narrative: EXAM NARRATIVE: General: No acute distress, AO x3, morbidly obese, on BiPAP ventilation HEENT: PERRLA, pupils bilaterally equal and reactive Chest: Bilateral bronchial breath sounds, decreased air entry all over the lung archuleta, coarse crackles all over the lung archuleta. CVS: S1-S2 regular, no murmurs, no tachycardia, no gallops, no rubs Abdomen: Soft, nontender, no organomegaly, bowel sounds present Neuro: No focal deficits, no facial deformity, AO x3, power 5/5 in all limbs Urinary Catheter Management^: Angelo: Cath Placed During This Visit: yes Reason for Continuing Indwelling Catheter: Acute Urinary Retention or Obstruction Urinary Catheter Date of Insertion: 05/17/21 Urinary Catheter Time of Insertion: 23:00 Data : 05/19/21 05:12 05/19/21 06:32 Micro: Microbiology 05/18/21 14:52 Blood Culture - Preliminary Blood SPECIMEN COLLECTED 05/18/21 14:59 Blood Culture - Preliminary Blood SPECIMEN COLLECTED 05/17/21 19:53 MRSA Culture - Final Nose 05/17/21 23:00 Bacterial Antigens - Final Urine,Voided 05/17/21 23:00 Legionella Urinary Antigen - Final Urine Catheterized A&P Assessment and plan (1) ARDS (adult respiratory distress syndrome): Status: Acute (2) Pneumonia due to 2019-nCoV: Status: Suspected (3) Atrial fibrillation with RVR: Status: Acute (4) Type 2 diabetes mellitus: Status: Acute (5) Hypertension: Status: Acute Additional A&P Information ARDS secondary COVID-19 pneumonia: Severe disease.. Oxygen supplementation keeping saturation over 88%. Post Actemra on May 18. Urine Legionella, bacterial antigen negative, MRSA swab negative, blood cultures preliminary negative. For now low suspicion of bacterial infection. Stop vancomycin as MRSA is negative. Continue with ceftriaxone azithromycin. For now continue with vancomycin, ceftriaxone and azithromycin. Check ABG. Dexamethasone 6 mg daily. Remdesivir to finish a 5-day course. Vitamin C, zinc. DuoNeb every 4 hour, budesonide twice daily Pulmonary toilet with incentive spirometry flutter valve. We will monitor inflammatory markers including ferritin, ESR, CRP, D-dimer, fibrinogen. D-dimer elevated. CTA negative for pulmonary embolism. Continue with Eliquis 5 mg twice daily as patient is still requiring high oxygen supplementation and has persistent atrial fibrillation. Will monitor for anemia or blood loss. Strict input output charting, daily weights. Patient looking euvolemic to mildly dehydrated today. Echocardiogram. Hypertension: Goal blood pressure less than 140/90 mmHg. Continue with home dose of amlodipine. For now hold off on losartan because of mild developing JOSE. Type 2 diabetes mellitus: Stop OHA's. Blood sugars elevated. Insulin sliding scale high-dose protocol. Lantus 30 units twice daily. Will increase the dose of Lantus depending on insulin requirement next 24 hours. High renal functions: Most likely secondary dehydration along with severe illness. Continue to monitor BMP daily for now. Medical reconciliation done. Hypothyroidism: Continue home dose of levothyroxine. Atrial fibrillation: Rate better controlled. No known history. Continue with metoprolol 25 mg twice daily. Persistent. CHADVas score- 4. Eliquis 5 mg twice daily. CODE STATUS: Discussed in detail with both patient and patient's son as above. Patient would not want to be on a ventilator as she values quality of life more than life itself. She states she would not want to be on a ventilator and for now continue BiPAP ventilation. CODE STATUS change in the system for limited resuscitation. Eliquis will help with DVT prophylaxis as well. Protonix for PUD prophylaxis. Full liquid cardiac carb consistent diet. Attestations Medical Necessity Statement*: Patient requires further hospitalization for management of ARDS, BiPAP dependent COVID-19 pneumonia, atrial fibrillation, severe type 2 diabetes mellitus. Time Spent in Patient Care: Greater than 35 minutes (>than 50% of time spent in counselling and/or direct pt care on unit). Coding Level of Care Code Acute Taffy Candy Maker for [facility] Fw Diagnoses ARDS (adult respiratory distress syndrome) J80 Pneumonia due to 2019-nCoV U07.1; J12.82 Atrial fibrillation with RVR I48.91 Type 2 diabetes mellitus E11.9 Hypertension I10
[2021-05-19] MEDS: famotidine 20 mg/2 mL INJ IVP (13:59)
[2021-05-19 16:49] LABS: Glucose Point of Care 195 mg/dL (70-110)
[2021-05-19] MEDS: dexamethasone 4 mg/mL INJ 6 MG IVP (16:59)
[2021-05-19 17:52] LABS: Quest SARS-CoV-2 RNA DETECTED (NOT DETECTED)
[2021-05-19] MEDS: remdesivir 100 MG in sodium chloride 0.9% (100 ml) 100 ML IV (17:59)
--- NOTE | 2021-05-19 18:28 | PC.NURSE ---
Frequent safety and comfort rounds continue. Orders and/or nursing care completed as indicated. Patient monitored for response to intervention and treatment(s). Education provided includes on all medications given. Patient verbalizes understanding. Will continue to monitor
[2021-05-19 20:18] LABS: Glucose Point of Care 168 mg/dL (70-110)
[2021-05-19] MEDS: metoprolol tartrate 25 mg Tablet PO (21:04)
[2021-05-19] MEDS: azithromycin 500 MG in sodium chloride 0.9% 250 ML 250 MG IV (21:05)
[2021-05-19] MEDS: ondansetron 2 mg/ML SDV 2 mL 4 MG IVP (21:31)
--- NOTE | 2021-05-19 23:04 | PC.NURSE ---
Report called to Samaria HOFFMAN in ICU, patient going to ICU bed 12. patient in stable condition at time of transfer.
--- NOTE | 2021-05-19 23:52 | PC.NURSE ---
Patient transferred to ICU from at 2330. Patient is A&Ox4. No drips running. Code status compressions only, no meds or intubation. Bipap 100% FIO2 sats running 88-90%
[2021-05-20] VITALS (39 sets, daily range): BP systolic 113–151; BP diastolic 51–83; PULSE 58–89; RESP 14–28; TEMP 37.2; O2SAT 85–95
[2021-05-20] MEDS: ipratropium-albuterol 3 mL Neb INHALATION ×6 (00:24→23:54)
[2021-05-20] MEDS: famotidine 20 mg/2 mL INJ IVP (00:34)
[2021-05-20 03:30] LABS: Basophils % 0.2 %; Hematocrit 40.4 % (37.0-47.0); Hemoglobin 12.9 g/dL (11.5-15.3); Lymphocytes # 0.7 10^3/uL (0.8-4.8); Mean Corpuscular HGB Conc 31.9 g/dL (30.0-36.0); Mean Corpuscular Hemoglobin 29.3 pg (28.0-34.0); Mean Corpuscular Volume 91.6 fl (81-99); Mean Platelet Volume 10.4 fL (7.4-10.4); Monocytes # 0.7 10^3/uL (0.2-0.9); Monocytes % 7.9 %; Neutrophils # 6.86 10^3/uL (1.8-7.7); Neutrophils % 79.6 %; Nucleated Red Blood Cells % 0 %; Platelet Count 344 10^3/cmm (130-400); Red Blood Count 4.41 10^6/uL (4.1-5.3); Red Cell Distribution Width 13.1 % (12.1-15.1); White Blood Count 8.6 10^3/uL (4.0-10.0)
[2021-05-20 03:42] LABS: D Dimer 0.57 ug/mIFEU (0-0.59)
[2021-05-20 03:51] LABS: C Reactive Protein 58.5 mg/L (0.0-4.9)
[2021-05-20 04:07] LABS: Alanine Aminotransferase 14 U/L (0-33); Albumin Level 2.8 g/dL (3.5-5.2); Alkaline Phosphatase 78 IU/L (35-105); Anion Gap 14.4 (5-19); Aspartate Amino Transferase 21 U/L (0-32); Blood Urea Nitrogen 32 mg/dL (8-23); Calcium 8.5 mg/dL (8.5-10.5); Carbon Dioxide 26 mmol/L (22-29); Chloride 104 mmol/L (98-107); Globulin 2.9 g/dL (1.3-4.6); Glomerular Filtration Rate 61.9 mL/min (90-130); Glucose 149 mg/dL (65-115); NT Pro B Type Natriuretic Pept 425 pg/mL (0-125); Osmolality Calculated 302 mOsm/kg (285-295); Potassium 3.4 mmol/L (3.5-5.1); Sodium 141 mmol/L (136-145); Total Bilirubin 0.2 mg/dL (0.15-1.2); Total Protein 5.7 g/dL (6.6-8.7)
[2021-05-20 04:22] LABS: Erythrocyte Sedimentation Rate 49 mm/hr (0-15)
[2021-05-20] MEDS: allopurinol 300 mg Tablet PO (05:16)
[2021-05-20] MEDS: duloxetine 30 mg Capsule PO (05:16)
[2021-05-20] MEDS: amlodipine 10 mg Tablet PO (05:16)
--- NOTE | 2021-05-20 05:30 | PC.NURSE ---
Shift Note Frequent safety and comfort rounds continue. Orders and/or nursing care completed as indicated. Patient monitored for response to intervention and treatment(s). Education provided includes respiratory function. Patient and/or enrollment eligibility representative Reinforcement needed. Will continue to monitor.
[2021-05-20] MEDS: levothyroxine 137 mcg Tablet PO (05:50)
--- NOTE | 2021-05-20 06:00 | XRR_ITS ---
PROCEDURE INFORMATION: Exam: XR Chest Exam date and time: 05/20/2021 6:00 AM Age: 70 years old Clinical indication: Dyspnea; Additional info: Covid TECHNIQUE: Imaging protocol: XR of the chest. Views: 1 view. COMPARISON: CR (CHEST, ) 05/18/2021 6:08 AM FINDINGS: Lungs: Hazy bilateral pulmonary opacities which are consistent with COVID-19. Pleural spaces: Unremarkable. No pleural effusion. No pneumothorax. Heart/Mediastinum: There is mild cardiomegaly. Bones/joints: Unremarkable. XR/XR chest 1V portable [id number] IMPRESSION: 1. Hazy bilateral pulmonary opacities which are consistent with COVID-19. 2. Mild cardiomegaly.
[2021-05-20 08:20] LABS: Glucose Point of Care 169 mg/dL (70-110)
--- NOTE | 2021-05-20 08:40 | PC.CHAP ---
Pastoral Care Encounter/Spiritual Assessment Type of Contact [] Declined residential service technician visit [] Patient/Family/Request visit [] Outpatient visit [] Follow-up visit [] Physician referral [] Code/Alert [x] Routine visit [] Staff referral [] Actively dying [] Patient sleeping [] Family support [] [] Out of room [] Palliative care [] [] Receiving care in room [] Pre-surgical visit [] Trauma [] Long length of stay [x] ICU visit [] Other: Relational/Emotional Strength [] Patient feels connected with others/family/visitors/staff [] Distress [] Loneliness/isolation [] Abandonment Spirituality of Patient [] Person of Halley [] Attends Moravian of their Halley [] Believes in Prayer [] Reads Bible or Mandaeism materials [] There are Spiritual issues to be addressed Powder Coater Interventions [x] Prayer [] Active listening [] Non-anxious presence [] Spiritual/emotional support [] Crisis/trauma care [] Spiritual counseling [] Bereavement support [] Provided bereavement packet [] Provided Bible/devotional materials [] Provided toy/stuffed animal, coloring book to patient or family member [] Provided Communion [] Anointing/[place] [] Salvation [x] Completed spiritual assessment [] Other: Impact on Illness or Injury [] Angry [] Fearful [] Anxious [] Often cries [] Exhaustion [] Unable to work [] Unable to attend jainism [] Unable to walk/stand [] Unable to read [] Unable to drive [] Unable to eat/drink [] Unable to sleep [] Unable to be with family [] Patient intubated [] Other: Summary Time spent with patient
--- NOTE | 2021-05-20 09:00 | PC.NURSE ---
Pt pupils noted to be unequal. Pt states that this is normal for her and has always been that way.
[2021-05-20] MEDS: zinc gluconate 50 mg Tablet PO (09:01)
[2021-05-20] MEDS: benzonatate 100 mg Capsule PO ×3 (09:01→20:29)
[2021-05-20] MEDS: metoprolol tartrate 25 mg Tablet PO ×2 (09:01→20:30)
[2021-05-20] MEDS: apixaban 5 mg Tablet PO ×2 (09:01→20:29)
--- NOTE | 2021-05-20 09:01 | P.PN_ITS ---
Subjective Subjective: Interval history: She is weak, but feels reasonably ok. Denies chest pain or pressure. Denies much cough, but coughs intermittently. Denies headache, nausea vomiting or diarrhea. Had a small amount of her breakfast tray. Currently taking a break from BiPAP, on nonrebreather mask 100%, saturations in mid to high 80s. We discussed with her regarding worsening oxygenation, requiring very high oxygen supply to maintain saturation. Discussed in case of worsening condition she confirms she would not want mechanical ventilation or intubation. Discussed with her that currently under CODE STATUS it is listed that she would receive chest compressions in case her heart stopped. Discussed with her regarding CPR. She tells me in case respiratory failure progressed to cardiac arrest she would not want to be in pain in that situation. We discussed adjusting CODE STATUS do not include chest compressions given the aggressive painful nature of the process which would not fix the underlying issue and would have low likelihood of success with underlying 100% FiO2 requirement. Discussed also with her son. Vitals/I&O/Wt Last Vital Signs Temp 98.1 F 05/19/21 23:10 Pulse 65 05/20/21 07:42 Resp 18 05/20/21 07:40 BP 145/79 05/20/21 07:00 Pulse Ox 91 05/20/21 07:40 05/19/21 05/20/21 05/20/21 22:59 06:59 14:59 Intake Total 460 / 460 Output Total 350 / 350 350 / 700 Balance -350 / -350 110 / -240 Weight last 48 hrs Weight 131.117 kg Weight 131.905 kg Physical Exam Const: COMMON NORMALS: no acute distress and patient oriented x3 NUTRITIONAL APPEARANCE: obese OTHER: Weak HENMT: COMMON NORMALS: oropharynx normal Neck/C-Spine: COMMON NORMALS: no JVD Resp: COMMON NORMALS: normal respiratory effort and clear to auscultation bilaterally AUSCULTATION: clear to auscultation bilaterally Cardio: COMMON NORMALS: no JVD, regular rhythm, S1 normal heart sound present, S2 normal heart sound present and No murmurs present (Cardio) RHYTHM: regular rhythm HEART SOUNDS: S1 normal heart sound present and S2 normal heart sound present GI: COMMON NORMALS: Normal to inspection, nondistended, normoactive bowel sounds present, Soft to palpation and non-tender PALPATION: Yes Soft to palpation Extremity: COMMON NORMALS: no joint enlargement and no pedal edema Neuro: COMMON NORMALS: patient oriented x3 and moves all extremities Skin: COMMON NORMALS: no rashes or lesions noted GENERAL SKIN EXAM: no rashes or lesions noted Urinary Catheter Management^: Angelo: Cath Placed During This Visit: yes Reason for Continuing Indwelling Catheter: Accurate Measurement of Urinary Outp ut in Critically Ill Patients Urinary Catheter Date of Insertion: 05/17/21 Urinary Catheter Time of Insertion: 23:00 Data : 05/20/21 03:15 05/20/21 03:15 Micro: Microbiology 05/18/21 14:52 Blood Culture - Preliminary Blood NEGATIVE TO DATE 05/18/21 14:59 Blood Culture - Preliminary Blood NEGATIVE TO DATE A&P Assessment and plan (1) ARDS (adult respiratory distress syndrome): Severe COVID-19, ARDS, high oxygen requirement, requiring 1%, nonrebreather 100%, taking break from BiPAP, saturating in the mid to high 80s. Was moved to ICU overnight. Continue Decadron, remdesivir. Continue empiric antibiotic coverage with ceftriaxone, azithromycin. Continue nebulization. Tessalon Perles. Supportive care. Status: Acute (2) Pneumonia due to 2018-nCoV: Status: Suspected (3) Atrial fibrillation with RVR: Continue metoprolol, Eliquis. Status: Acute (4) Type 2 diabetes mellitus: Status: Acute (5) Hypertension: Continue motor pain. Losartan is held. Status: Acute Additional A&P Information Hypertension: Continue with home dose of amlodipine. For now hold off on losartan because of mild developing JOSE. Type 2 diabetes mellitus: Insulin sliding scale high-dose protocol. Lantus 30 units twice daily. Creatinine elevation: 1.1: Improved to 2.9. BUN slightly at 32. Monitor renal function. Avoid nephrotoxic agents. Hypothyroidism: Continue home dose of levothyroxine. Attestations Medical Necessity Statement*: Continue admission for assessment and management of severe COVID-19 with hypoxic respiratory failure. Coding Level of Care Code Acute Pr Intern for [facility] Fwd Exam Comprehensive Diagnoses ARDS (adult respiratory distress syndrome) J80 Pneumonia due to 2018-nCoV U07.1; J12.82 Atrial fibrillation with RVR I48.91 Type 2 diabetes mellitus E11.9 Hypertension I10
[2021-05-20] MEDS: bisacodyl 5 mg Tablet 10 MG PO (09:27)
[2021-05-20] MEDS: insulin glargine 100 units/1 mL 30 UNIT SUBCUT ×2 (09:28→18:29)
[2021-05-20] MEDS: ascorbic acid 500 mg Tablet PO (09:47)
--- NOTE | 2021-05-20 10:05 | PC.NURSE ---
Pt gave permission to speak to sister, Ellen.
[2021-05-20] MEDS: budesonide 0.5 mg/2 mL Neb INHALATION ×2 (11:43→19:56)
[2021-05-20 12:37] LABS: Glucose Point of Care 176 mg/dL (70-110)
--- NOTE | 2021-05-20 12:39 | PC.SOCIAL ---
IMM update IMM not updated as patient isn't expected to DC in the next 24-48 hours.
[2021-05-20] MEDS: dexamethasone 4 mg/mL INJ 6 MG IVP (16:18)
--- NOTE | 2021-05-20 18:26 | PC.NURSE ---
Pt started beginning of shift on Bipap at 100% sats in the high 80's. She currently is on Heated high flow, sats are in the low 90's. Alert and oriented, eating well. Sat on edge of bed briefly, tolerated well.
[2021-05-20] MEDS: remdesivir 100 MG in sodium chloride 0.9% (100 ml) 100 ML IV (18:30)
[2021-05-20 20:27] LABS: Glucose Point of Care 159 mg/dL (70-110)
[2021-05-20] MEDS: cefTRIAXone 1,000 MG in sodium chloride 0.9% (plus) 50 ML 100 MG IV (20:28)
[2021-05-20] MEDS: azithromycin 500 MG in sodium chloride 0.9% 250 ML 250 MG IV (20:29)
[2021-05-20 21:16] LABS: Glucose Point of Care 175 mg/dL (70-110)
[2021-05-21] VITALS (26 sets, daily range): BP systolic 107–154; BP diastolic 58–79; PULSE 64–96; RESP 16–27; TEMP 36.1–37.1; O2SAT 89–96
[2021-05-21] MEDS: famotidine 20 mg/2 mL INJ IVP ×2 (01:04→11:53)
[2021-05-21] MEDS: ipratropium-albuterol 3 mL Neb INHALATION ×5 (03:12→19:43)
[2021-05-21] MEDS: amlodipine 10 mg Tablet PO (05:11)
[2021-05-21] MEDS: levothyroxine 137 mcg Tablet PO (05:11)
[2021-05-21] MEDS: duloxetine 30 mg Capsule PO (05:11)
[2021-05-21] MEDS: allopurinol 300 mg Tablet PO (05:11)
[2021-05-21 06:03] LABS: Hematocrit 40.6 % (37.0-47.0); Mean Corpuscular Hemoglobin 28.9 pg (28.0-34.0); Mean Corpuscular Volume 90.2 fl (81-99); Mean Platelet Volume 10.5 fL (7.4-10.4); Platelet Count 403 10^3/cmm (130-400)
[2021-05-21 06:16] LABS: D Dimer 0.48 ug/mIFEU (0-0.59)
[2021-05-21 06:32] LABS: Alanine Aminotransferase 17 U/L (0-33); Albumin Level 2.9 g/dL (3.5-5.2); Alkaline Phosphatase 77 IU/L (35-105); Anion Gap 13.1 (5-19); Aspartate Amino Transferase 22 U/L (0-32); Blood Urea Nitrogen 28 mg/dL (8-23); Calcium 8.3 mg/dL (8.5-10.5); Carbon Dioxide 27 mmol/L (22-29); Chloride 106 mmol/L (98-107); Globulin 2.6 g/dL (1.3-4.6); Glomerular Filtration Rate 70.9 mL/min (90-130); Glucose 176 mg/dL (65-115); NT Pro B Type Natriuretic Pept 645 pg/mL (0-125); Osmolality Calculated 306 mOsm/kg (285-295); Potassium 3.1 mmol/L (3.5-5.1); Sodium 143 mmol/L (136-145); Total Bilirubin 0.3 mg/dL (0.15-1.2); Total Protein 5.5 g/dL (6.6-8.7)
--- NOTE | 2021-05-21 07:02 | PC.NURSE ---
Shift Note Frequent safety and comfort rounds continue. Orders and/or nursing care completed as indicated. Patient monitored for response to intervention and treatment(s). Education provided includes[oxygen safety]. Patient and/or business process representative [Reported understanding]. Will continue to monitor. no c/o through shift
[2021-05-21 07:07] LABS: Slide Review Slide Review Perform
[2021-05-21 07:10] LABS: Absolute Neutrophil 8.4 10^3/cmm (1.4-6.5); Absolute Segmented Neutrophil 8.3 10/cmm (1.6-7.1); Band Neutrophils Absolute 0.1 10^3/cmm (0.0-1.2); Eosinophils 0 %; Lymphocytes 5 %; Lymphocytes Absolute 0.7 10^3/cmm (1.2-3.4); Monocytes Absolute 0.4 10^3/cmm (0.1-0.6); Platelet Estimate Normal (Normal); Segmented Neutrophils 83 %; Total Cells Counted 100 (0-100)
[2021-05-21] MEDS: budesonide 0.5 mg/2 mL Neb INHALATION ×2 (07:30→19:43)
[2021-05-21 08:25] LABS: Glucose Point of Care 192 mg/dL (70-110)
--- NOTE | 2021-05-21 08:48 | PC.CHAP ---
Pastoral Care Encounter/Spiritual Assessment Type of Contact [] Declined sales recruiter visit [] Patient/Family/Request visit [] Outpatient visit [] Follow-up visit [] Physician referral [] Code/Alert [x] Routine visit [] Staff referral [] Actively dying [] Patient sleeping [] Family support [] [] Out of room [] Palliative care [] [] Receiving care in room [] Pre-surgical visit [] Trauma [] Long length of stay x] ICU visit [] Other: Relational/Emotional Strength [] Patient feels connected with others/family/visitors/staff [] Distress [] Loneliness/isolation [] Abandonment Spirituality of Patient [] Person of Halley [] Attends Faith of their [place] [] Believes in Prayer [] Reads Bible or Christian materials [] There are Spiritual issues to be addressed [employer] Rn Interventions [x] Prayer [] Active listening [] Non-anxious presence [] Spiritual/emotional support [] Crisis/trauma care [] Spiritual counseling [] Bereavement support [] Provided bereavement packet [] Provided Bible/devotional materials [] Provided toy/stuffed animal, coloring book to patient or family member [] Provided Communion [] Anointing/[place] [] Salvation [x] Completed spiritual assessment [] Other: Impact on Illness or Injury [] Angry [] Fearful [] Anxious [] Often cries [] Exhaustion [] Unable to work [] Unable to attend protestant [] Unable to walk/stand [] Unable to read [] Unable to drive [] Unable to eat/drink [] Unable to sleep [] Unable to be with family [] Patient intubated [] Other: Summary Time spent with patient
[2021-05-21] MEDS: lidocaine 1% 5 ML in potassium chloride premix 100 ML 50 ML IV (09:11)
[2021-05-21] MEDS: apixaban 5 mg Tablet PO ×2 (09:11→20:58)
[2021-05-21] MEDS: zinc gluconate 50 mg Tablet PO (09:12)
[2021-05-21] MEDS: benzonatate 100 mg Capsule PO ×3 (09:12→20:58)
[2021-05-21] MEDS: metoprolol tartrate 25 mg Tablet PO ×2 (09:12→20:58)
[2021-05-21] MEDS: ascorbic acid 500 mg Tablet PO (09:12)
[2021-05-21] MEDS: insulin glargine 100 units/1 mL 30 UNIT SUBCUT ×2 (09:12→18:13)
[2021-05-21 11:02] LABS: Glucose Point of Care 177 mg/dL (70-110)
--- NOTE | 2021-05-21 12:10 | P.PN_ITS ---
Subjective Subjective: Interval history: She feels slightly better. Denies chest pain. Vitals/I&O/Wt Last Vital Signs Temp 98.3 F 05/21/21 08:00 Pulse 64 05/21/21 11:20 Resp 21 H 05/21/21 11:20 BP 116/58 05/21/21 08:00 Pulse Ox 91 05/21/21 11:20 05/20/21 05/21/21 05/21/21 22:59 06:59 14:59 Intake Total 180 / 240 Output Total 900 / 900 400 / 1300 Balance -720 / -660 -400 / -1060 Weight last 48 hrs Weight 132.449 kg Weight 131.117 kg Physical Exam Const: COMMON NORMALS: no acute distress and patient oriented x3 NU TRITIONAL APPEARANCE: obese OTHER: Slightly stronger than yesterday. Holter monitor active. In better spirits. HENMT: COMMON NORMALS: oropharynx normal Neck/C-Spine: COMMON NORMALS: no JVD Resp: COMMON NORMALS: normal respiratory effort and clear to auscultation bilaterally AUSCULTATION: clear to auscultation bilaterally Cardio: COMMON NORMALS: no JVD, regular rhythm, S1 normal heart sound present, S2 normal heart sound present and No murmurs present (Cardio) RHYTHM: regular rhythm HEART SOUNDS: S1 normal heart sound present and S2 normal heart sound present GI: COMMON NORMALS: Normal to inspection, nondistended, normoactive bowel sounds present, Soft to palpation and non-tender PALPATION: Yes Soft to palpation Extremity: COMMON NORMALS: no joint enlargement and no pedal edema Neuro: COMMON NORMALS: patient oriented x3 and moves all extremities Skin: COMMON NORMALS: no rashes or lesions noted GENERAL SKIN EXAM: no rashes or lesions noted Urinary Catheter Management^: Angelo: Cath Placed During This Visit: yes Reason for Continuing Indwelling Catheter: Accurate Measurement of Urinary Output in Critically Ill Patients Urinary Catheter Date of Insertion: 05/17/21 Urinary Catheter Time of Insertion: 23:00 Data : 05/21/21 05:35 05/21/21 05:35 A&P Assessment and plan (1) ARDS (adult respiratory distress syndrome): Discussed also with her son. She is still requiring very high amount of oxygen, and percent FiO2. But so far is actually tolerating HHF quite well. Continue Decadron, remdesivir. Continue empiric antibiotic coverage with ceftriaxone, azithromycin. Continue nebulization. Tessalon Perles. Supportive care. Status: Acute (2) Pneumonia due to 2019-nCoV: Status: Suspected (3) Atrial fibrillation with RVR: Continue metoprolol, Eliquis. Status: Acute (4) Type 2 diabetes mellitus: Status: Acute (5) Hypertension: Continue motor pain. Losartan is held. Status: Acute Additional A&P Information Hypertension: Continue with home dose of amlodipine. For now hold off on losartan because of mild developing JOSE. Type 2 diabetes mellitus: Insulin sliding scale high-dose protocol. Lantus 30 units twice daily. Creatinine elevation: 1.1: Improved to 2.9. BUN slightly at 32. Monitor renal function. Avoid nephrotoxic agents. Hypothyroidism: Continue home dose of levothyroxine. Attestations Medical Necessity Statement*: Continue admission for hypoxic respite failure with severe COVID-19. Coding Level of Care Code Acute Civil Engineering Director for [facility] Fwd Exam Comprehensive Diagnoses ARDS (adult respiratory distress syndrome) J80 Pneumonia due to 2019-nCoV U07.1; J12.82 Atrial fibrillation with RVR I48.91 Type 2 diabetes mellitus E11.9 Hypertension I10
--- NOTE | 2021-05-21 14:50 | PC.RESP ---
RT Shift Note Frequent safety and respiratory rounds continue. Orders completed as indicated. Patient monitored pre and post treatments throughout shift. Patient [Did.] tolerate treatments appropriately. Condition [DidNotChange]. Patient and/or customer success representative educated on respiratory treatment and medications. Patient and/or customer success representative [verbalized understanding]. Will continue to monitor patient progress.
[2021-05-21] MEDS: dexamethasone 4 mg/mL INJ 6 MG IVP (16:48)
[2021-05-21 16:57] LABS: Glucose Point of Care 108 mg/dL (70-110)
[2021-05-21] MEDS: remdesivir 100 MG in sodium chloride 0.9% (100 ml) 100 ML IV (18:02)
--- NOTE | 2021-05-21 20:01 | PC.NURSE ---
SHift summary: Received patient from ICU staff. Vitals within normal limits. Transfer was uneventful. Patient rested in bed throughout shift. Nurse discussed code status with patient and she wants chest compressions and medications as indicated, but not intubation. Nurse explained to patient that intubation is almost certainly required while following ACLS protocols, but patient still refuses intubation.
[2021-05-21 20:52] LABS: Glucose Point of Care 191 mg/dL (70-110)
[2021-05-21] MEDS: cefTRIAXone 1,000 MG in sodium chloride 0.9% (plus) 50 ML 100 MG IV (20:58)
[2021-05-21] MEDS: azithromycin 500 MG in sodium chloride 0.9% 250 ML 250 MG IV (21:25)
[2021-05-22] VITALS (19 sets, daily range): BP systolic 112–154; BP diastolic 63–80; PULSE 69–98; RESP 17–24; TEMP 36.5–36.9; O2SAT 87–96; BMI 55.1
[2021-05-22] MEDS: ipratropium-albuterol 3 mL Neb INHALATION ×7 (00:04→23:45)
[2021-05-22] MEDS: famotidine 20 mg/2 mL INJ IVP ×2 (00:23→07:38)
[2021-05-22] MEDS: duloxetine 30 mg Capsule PO (05:06)
[2021-05-22] MEDS: allopurinol 300 mg Tablet PO (05:06)
[2021-05-22] MEDS: levothyroxine 137 mcg Tablet PO (05:06)
[2021-05-22] MEDS: amlodipine 10 mg Tablet PO (05:06)
--- NOTE | 2021-05-22 06:00 | XR_ITS ---
WS: [id number] Portable AP upright chest, 05/22/2021 Clinical Data: covid Comparison: Portable chest, 05/20/2021. Findings: The patchy opacities in both lungs have cleared slightly. The heart remains enlarged. XR/XR chest 1V portable [id number] Impression: 1. Slight improvement in patchy pulmonary opacities. 2. Cardiomegaly.
[2021-05-22 06:20] LABS: Basophils % 0.4 %; Hematocrit 39.8 % (37.0-47.0); Hemoglobin 12.9 g/dL (11.5-15.3); Lymphocytes # 0.8 10^3/uL (0.8-4.8); Lymphocytes % 7.1 %; Mean Corpuscular HGB Conc 32.4 g/dL (30.0-36.0); Mean Corpuscular Hemoglobin 29.3 pg (28.0-34.0); Mean Corpuscular Volume 90.2 fl (81-99); Mean Platelet Volume 10.4 fL (7.4-10.4); Monocytes # 0.8 10^3/uL (0.2-0.9); Monocytes % 7.1 %; Neutrophils # 8.76 10^3/uL (1.8-7.7); Neutrophils % 79.5 %; Nucleated Red Blood Cells % 0 %; Platelet Count 383 10^3/cmm (130-400); Red Blood Count 4.41 10^6/uL (4.1-5.3); Red Cell Distribution Width 13.2 % (12.1-15.1)
--- NOTE | 2021-05-22 06:31 | PC.NURSE ---
Patient rested most of the night. Received full bed bath this morning and in good spirits.
[2021-05-22 06:36] LABS: D Dimer 0.69 ug/mIFEU (0-0.59)
[2021-05-22 06:43] LABS: Alanine Aminotransferase 17 U/L (0-33); Albumin Level 2.9 g/dL (3.5-5.2); Alkaline Phosphatase 74 IU/L (35-105); Anion Gap 14.2 (5-19); Aspartate Amino Transferase 25 U/L (0-32); Blood Urea Nitrogen 22 mg/dL (8-23); Calcium 8.2 mg/dL (8.5-10.5); Carbon Dioxide 27 mmol/L (22-29); Chloride 106 mmol/L (98-107); Globulin 2.6 g/dL (1.3-4.6); Glomerular Filtration Rate 82.7 mL/min (90-130); Glucose 174 mg/dL (65-115); Osmolality Calculated 306 mOsm/kg (285-295); Potassium 3.2 mmol/L (3.5-5.1); Sodium 144 mmol/L (136-145); Total Bilirubin 0.4 mg/dL (0.15-1.2); Total Protein 5.5 g/dL (6.6-8.7)
[2021-05-22 06:45] LABS: Glucose Point of Care 169 mg/dL (70-110)
[2021-05-22 06:55] LABS: Slide Review Slide Review Perform
[2021-05-22] MEDS: zinc gluconate 50 mg Tablet PO (07:38)
[2021-05-22] MEDS: ascorbic acid 500 mg Tablet PO (07:38)
[2021-05-22] MEDS: benzonatate 100 mg Capsule PO ×3 (07:38→20:43)
[2021-05-22] MEDS: metoprolol tartrate 25 mg Tablet PO ×2 (07:38→20:43)
[2021-05-22] MEDS: budesonide 0.5 mg/2 mL Neb INHALATION ×2 (07:44→20:50)
[2021-05-22] MEDS: apixaban 5 mg Tablet PO ×2 (07:45→20:43)
--- NOTE | 2021-05-22 08:32 | PC.CHAP ---
Pastoral Care Encounter/Spiritual Assessment Type of Contact [] Declined distributor publications visit [] Patient/Family/Request visit [] Outpatient visit [] Follow-up visit [] Physician referral [] Code/Alert [x] Routine visit [] Staff referral [] Actively dying [] Patient sleeping [] Family support [] [] Out of room [] Palliative care [] [] Receiving care in room [] Pre-surgical visit [] Trauma [] Long length of stay [] ICU visit [x] Other: 2a served breakfast Relational/Emotional Strength [] Patient feels connected with others/family/visitors/staff [] Distress [] Loneliness/isolation [] Abandonment Spirituality of Patient [] Person of Halley [] Attends Sabianism of their Halley [] Believes in Prayer [] Reads Bible or Episcopalian materials [] There are Spiritual issues to be addressed Machine Ironer Interventions [x] Prayer [] Active listening [] Non-anxious presence [] Spiritual/emotional support [] Crisis/trauma care [] Spiritual counseling [] Bereavement support [] Provided bereavement packet [] Provided Bible/devotional materials [] Provided toy/stuffed animal, coloring book to patient or family member [] Provided Communion [] Anointing/Tram [] Salvation [x] Completed spiritual assessment [] Other: Impact on Illness or Injury [] Angry [] Fearful [] Anxious [] Often cries [] Exhaustion [] Unable to work [] Unable to attend confucianist [] Unable to walk/stand [] Unable to read [] Unable to drive [] Unable to eat/drink [] Unable to sleep [] Unable to be with family [] Patient intubated [] Other: Summary Time spent with patient
[2021-05-22] MEDS: ondansetron 2 mg/ML SDV 2 mL 4 MG IVP (09:03)
[2021-05-22] MEDS: insulin glargine 100 units/1 mL 30 UNIT SUBCUT ×2 (09:54→18:13)
[2021-05-22 11:47] LABS: Glucose Point of Care 150 mg/dL (70-110)
--- NOTE | 2021-05-22 12:09 | PC.SOCIAL ---
IMM Update Page 2 of [facility] updated. Updated patient copy left in chart. Initialed, date and timed.
--- NOTE | 2021-05-22 15:35 | PC.NURSE ---
Patient brought over to [facility] from [facility] Covid Unit. Sister, Ellen, is aware of the move and locatoin of patient.
[2021-05-22 16:57] LABS: Glucose Point of Care 132 mg/dL (70-110)
[2021-05-22 17:38] LABS: Glucose Point of Care 113 mg/dL (70-110)
[2021-05-22] MEDS: dexamethasone 4 mg/mL INJ 6 MG IVP (18:13)
--- NOTE | 2021-05-22 19:33 | PC.NURSE ---
Dr Urban wanted me to clarify with patient her code status as she has changed her mind about a few times during the stay. He spoke with her this morning and she told him she did not want resuscitation at all if she went into cardiac arrest. When I went in to visit with her - she stated to me the same thing. I sent Dr. Urban a message stating that patient did state that she does not want intubation, chest compressions, or life saving measures if she goes into cardiac arrest.
[2021-05-22] MEDS: cefTRIAXone 1,000 MG in sodium chloride 0.9% (plus) 50 ML 100 MG IV (20:41)
--- NOTE | 2021-05-22 21:20 | PM.PN ---
Subjective Subjective: Interval history: Feels she is improving. Is having some nausea. Little bit of cough. Denies headache. No chest pain or pressure. Denies diarrhea. Vitals/I&O/Wt Last Vital Signs Temp 98.5 F 05/22/21 19:37 Pulse 84 05/22/21 20:50 Resp 24 H 05/22/21 20:50 BP 154/69 05/22/21 19:37 Pulse Ox 87 L 05/22/21 20:50 05/22/21 05/22/21 05/22/21 06:59 14:59 22:59 Intake Total 200 / 200 490 / 690 Output Total 300 / 750 400 / 400 400 / 800 Balance -300 / 155 -200 / -200 90 / -110 Weight last 48 hrs Weight 132.449 kg Weight 132.449 kg Physical Exam Const: COMMON NORMALS: no acute distress and patient oriented x3 NUTRITIONAL APPEARANCE: obese HENMT: COMMON NORMALS: oropharynx normal Neck/C-Spine: COMMON NORMALS: no JVD Resp: COMMON NORMALS: normal respiratory effort and clear to auscultation bilaterally AUSCULTATION: clear to auscultation bilaterally Cardio: COMMON NORMALS: no JVD, regular rhythm, S1 normal heart sound present, S2 normal heart sound present and No murmurs present (Cardio) RHYTHM: regular rhythm HEART SOUNDS: S1 normal heart sound present and S2 normal heart sound present GI: COMMON NORMALS: Normal to inspection, nondistended, normoactive bowel sounds present, Soft to palpation and non-tender PALPATION: Yes Soft to palpation Extremity: COMMON NORMALS: no joint enlargement and no pedal edema Neuro: COMMON NORMALS: patient oriented x3 and moves all extremities Skin: COMMON NORMALS: no rashes or lesions noted GENERAL SKIN EXAM: no rashes or lesions noted Urinary Catheter Management^: Angelo: Cath Placed During This Visit: yes Reason for Continuing Indwelling Catheter: Accurate Measurement of Urinary Output in Critically Ill Patients Urinary Catheter Date of Insertion: 05/17/21 Urinary Catheter Time of Insertion: 23:00 Data : 05/22/21 06:06 05/22/21 06:06 A&P Assessment and plan (1) ARDS (adult respiratory distress syndrome): Showing some gradual improvement in terms of oxygenation. Coming down to 60% FiO2 today. Tolerating HF. Continue Decadron. Completed remdesivir. Continue empiric antibiotic coverage with ceftriaxone, azithromycin. Continue nebulization. Tessalon Perles. Supportive care. Status: Acute (2) Pneumonia due to 2019-nCoV: Status: Suspected (3) Atrial fibrillation with RVR: Continue metoprolol, Eliquis. Status: Acute (4) Type 2 diabetes mellitus: Status: Acute (5) Hypertension: Continue amlodipine. Losartan is held. Status: Acute Additional A&P Information Hypertension: Continue with home dose of amlodipine. losartan was held because of mild developing JOSE. Type 2 diabetes mellitus: Insulin sliding scale high-dose protocol. Lantus 30 units twice daily. Creatinine elevation: Resolved. Monitor renal function. Avoid nephrotoxic agents. Hypothyroidism: Continue home dose of levothyroxine. Attestations Medical Necessity Statement*: Continue admission for assessment of management of hypoxic respite failure with severe COVID-19. Coding Level of Care Code Acute Driver License Reviewing Officer for [facility] Diagnoses ARDS (adult respiratory distress syndrome) J80 Pneumonia due to 2018-nCoV U07.1; J12.82 Atrial fibrillation with RVR I48.91 Type 2 diabetes mellitus E11.9 Hypertension I10
[2021-05-22] MEDS: azithromycin 500 MG in sodium chloride 0.9% 250 ML 250 MG IV (21:21)
[2021-05-23] VITALS (17 sets, daily range): BP systolic 132–150; BP diastolic 63–76; PULSE 76–102; RESP 18–24; TEMP 36.4–37.1; O2SAT 88–93; BMI 55.2
[2021-05-23] MEDS: famotidine 20 mg/2 mL INJ IVP ×2 (01:05→12:37)
[2021-05-23] MEDS: ipratropium-albuterol 3 mL Neb INHALATION ×5 (04:10→19:49)
[2021-05-23] MEDS: levothyroxine 137 mcg Tablet PO (05:26)
[2021-05-23] MEDS: amlodipine 10 mg Tablet PO (05:26)
[2021-05-23] MEDS: duloxetine 30 mg Capsule PO (05:26)
[2021-05-23] MEDS: allopurinol 300 mg Tablet PO (05:26)
[2021-05-23 06:14] LABS: Basophils % 0.3 %; Eosinophils % 0.1 %; Hemoglobin 12.8 g/dL (11.5-15.3); Lymphocytes # 0.6 10^3/uL (0.8-4.8); Lymphocytes % 5.6 %; Mean Corpuscular Hemoglobin 29.6 pg (28.0-34.0); Mean Corpuscular Volume 92.4 fl (81-99); Mean Platelet Volume 10.4 fL (7.4-10.4); Monocytes # 0.7 10^3/uL (0.2-0.9); Neutrophils # 9.19 10^3/uL (1.8-7.7); Neutrophils % 81.2 %; Nucleated Red Blood Cells % 0 %; Platelet Count 394 10^3/cmm (130-400); Red Blood Count 4.33 10^6/uL (4.1-5.3); Red Cell Distribution Width 13.4 % (12.1-15.1); White Blood Count 11.3 10^3/uL (4.0-10.0)
[2021-05-23 06:17] LABS: Glucose Point of Care 146 mg/dL (70-110)
[2021-05-23 06:34] LABS: Alanine Aminotransferase 20 U/L (0-33); Albumin Level 2.9 g/dL (3.5-5.2); Alkaline Phosphatase 73 IU/L (35-105); Anion Gap 13.7 (5-19); Aspartate Amino Transferase 24 U/L (0-32); Blood Urea Nitrogen 22 mg/dL (8-23); Calcium 7.9 mg/dL (8.5-10.5); Carbon Dioxide 28 mmol/L (22-29); Chloride 107 mmol/L (98-107); Globulin 2.5 g/dL (1.3-4.6); Glomerular Filtration Rate 82.7 mL/min (90-130); Glucose 155 mg/dL (65-115); Osmolality Calculated 306 mOsm/kg (285-295); Potassium 3.7 mmol/L (3.5-5.1); Sodium 145 mmol/L (136-145); Total Bilirubin 0.5 mg/dL (0.15-1.2); Total Protein 5.4 g/dL (6.6-8.7)
[2021-05-23 08:36] LABS: Slide Review Slide Review Perform
[2021-05-23] MEDS: budesonide 0.5 mg/2 mL Neb INHALATION ×2 (09:00→19:50)
[2021-05-23] MEDS: benzonatate 100 mg Capsule PO ×2 (09:00→14:00)
[2021-05-23] MEDS: zinc gluconate 50 mg Tablet PO (09:00)
[2021-05-23] MEDS: metoprolol tartrate 25 mg Tablet PO ×2 (09:00→21:28)
[2021-05-23] MEDS: ascorbic acid 500 mg Tablet PO (09:00)
[2021-05-23] MEDS: apixaban 5 mg Tablet PO ×2 (09:01→21:28)
[2021-05-23] MEDS: insulin glargine 100 units/1 mL 30 UNIT SUBCUT (09:04)
[2021-05-23 11:40] LABS: Glucose Point of Care 154 mg/dL (70-110)
[2021-05-23 17:15] LABS: Glucose Point of Care 104 mg/dL (70-110)
[2021-05-23] MEDS: dexamethasone 4 mg/mL INJ 6 MG IVP (17:32)
--- NOTE | 2021-05-23 20:46 | P.PN_ITS ---
Subjective Subjective: Interval history: She feels that she continues to improve. Denies headache, nausea vomiting or diarrhea. No chest pain. Coughing. Vitals/I&O/Wt Last Vital Signs Temp 97.5 F L 05/23/21 16:00 Pulse 85 05/23/21 16:25 Resp 20 H 05/23/21 16:10 BP 135/63 05/23/21 16:00 Pulse Ox 90 05/23/21 16:10 05/23/21 05/23/21 05/23/21 06:59 14:59 22:59 Intake Total 0 / 940 480 / 480 520 / 1000 Output Total 0 / 800 450 / 450 Balance 0 / 140 480 / 480 70 / 550 Weight last 48 hrs Weight 132.591 kg Weight 132.449 kg Physical Exam Const: COMMON NORMALS: no acute distress and patient oriented x3 NUTRITIONAL APPEARANCE: obese morbidly obese OTHER: Slightly stronger than yesterday. Holter monitor active. In better spirits. HENMT: COMMON NORMALS: oropharynx normal Neck/C-Spine: COMMON NORMALS: no JVD Resp: COMMON NORMALS: normal respiratory effort and clear to auscultation bilaterally AUSCULTATION: clear to auscultation bilaterally Cardio: COMMON NORMALS: no JVD, regular rhythm, S1 normal heart sound present, S2 normal heart sound present and No murmurs present (Cardio) RHYTHM: regular rhythm HEART SOUNDS: S1 normal heart sound present and S2 normal heart sound present GI: COMMON NORMALS: Normal to inspection, nondistended, normoactive bowel sounds present, Soft to palpation and non-tender PALPATION: Yes Soft to palpation Extremity: COMMON NORMALS: no joint enlargement and no pedal edema Neuro: COMMON NORMALS: patient oriented x3 and moves all extremities Skin: COMMON NORMALS: no rashes or lesions noted GENERAL SKIN EXAM: no rashes or lesions noted Urinary Catheter Management^: Angelo: Cath Placed During This Visit: yes Reason for Continuing Indwelling Catheter: Accurate Measurement of Urinary Output in Critically Ill Patients Urinary Catheter Date of Insertion: 05/17/21 Urinary Catheter Time of Insertion: 23:00 Data : 05/23/21 05:43 05/23/21 05:43 Micro: Microbiology 05/18/21 14:59 Blood Culture - Final Blood NO GROWTH AFTER 5 DAYS 05/18/21 14:52 Blood Culture - Final Blood NO GROWTH AFTER 5 DAYS A&P Assessment and plan (1) ARDS (adult respiratory distress syndrome): Severe COVID-19 pneumonia. Gradually continues to improve. FiO2 down to 55%. She is still coughing. Will escalate antitussive treatment. Continue Decadron. Completed remdesivir. Continue empiric antibiotic coverage with ceftriaxone, azithromycin. Continue nebulization. Supportive care. Status: Acute (2) Pneumonia due to 2019-nCoV: Status: Suspected (3) Atrial fibrillation with RVR: Continue metoprolol, Eliquis. Status: Acute (4) Type 2 diabetes mellitus: Status: Acute (5) Hypertension: Continue motor pain. Losartan is held. Status: Acute Additional A&P Information Hypertension: Continue with home dose of amlodipine. losartan was held because of mild developing JOSE. Type 2 diabetes mellitus: Insulin sliding scale high-dose protocol. Lantus 30 units twice daily. Creatinine elevation: Resolved. Monitor renal function. Avoid nephrotoxic agents. Hypothyroidism: Continue home dose of levothyroxine. Attestations Medical Necessity Statement*: Continue admission for assessment management of hypoxic respite failure with severe COVID-19. Coding Level of Care Code Acute Object Oriented Programmer for [facility] Diagnoses ARDS (adult respiratory distress syndrome) J80 Pneumonia due to 2019-nCoV U07.1; J12.82 Atrial fibrillation with RVR I48.91 Type 2 diabetes mellitus E11.9 Hypertension I10
[2021-05-23 21:03] LABS: Glucose Point of Care 242 mg/dL (70-110)
[2021-05-23] MEDS: cefTRIAXone 1,000 MG in sodium chloride 0.9% (plus) 50 ML 100 MG IV (21:27)
[2021-05-23] MEDS: benzonatate 100 mg Capsule 200 MG PO (21:28)
[2021-05-23] MEDS: azithromycin 500 MG in sodium chloride 0.9% 250 ML 250 MG IV (22:06)
[2021-05-24] VITALS (18 sets, daily range): BP systolic 129–163; BP diastolic 67–80; PULSE 70–90; RESP 17–26; TEMP 36.6–37.1; O2SAT 91–98
[2021-05-24] MEDS: ipratropium-albuterol 3 mL Neb INHALATION ×7 (00:06→23:27)
[2021-05-24] MEDS: famotidine 20 mg/2 mL INJ IVP ×2 (00:56→13:06)
[2021-05-24] MEDS: allopurinol 300 mg Tablet PO (05:03)
[2021-05-24] MEDS: duloxetine 30 mg Capsule PO (05:03)
[2021-05-24] MEDS: amlodipine 10 mg Tablet PO (05:03)
[2021-05-24] MEDS: levothyroxine 137 mcg Tablet PO (05:03)
[2021-05-24 06:27] LABS: Glucose Point of Care 220 mg/dL (70-110)
[2021-05-24 06:35] LABS: Basophils # 0.1 10^3/uL (0.0-0.1); Basophils % 0.5 %; Eosinophils % 0.1 %; Hematocrit 40.9 % (37.0-47.0); Hemoglobin 12.8 g/dL (11.5-15.3); Lymphocytes # 0.5 10^3/uL (0.8-4.8); Lymphocytes % 4.2 %; Mean Corpuscular HGB Conc 31.3 g/dL (30.0-36.0); Mean Corpuscular Hemoglobin 28.9 pg (28.0-34.0); Mean Corpuscular Volume 92.3 fl (81-99); Mean Platelet Volume 10.8 fL (7.4-10.4); Monocytes # 0.7 10^3/uL (0.2-0.9); Monocytes % 6.8 %; Neutrophils # 8.75 10^3/uL (1.8-7.7); Neutrophils % 81.2 %; Nucleated Red Blood Cells % 0 %; Platelet Count 360 10^3/cmm (130-400); Red Blood Count 4.43 10^6/uL (4.1-5.3); Red Cell Distribution Width 13.3 % (12.1-15.1); White Blood Count 10.8 10^3/uL (4.0-10.0)
[2021-05-24 06:51] LABS: Alanine Aminotransferase 22 U/L (0-33); Albumin Level 2.9 g/dL (3.5-5.2); Alkaline Phosphatase 72 IU/L (35-105); Anion Gap 15.5 (5-19); Aspartate Amino Transferase 22 U/L (0-32); Blood Urea Nitrogen 21 mg/dL (8-23); Calcium 7.9 mg/dL (8.5-10.5); Carbon Dioxide 25 mmol/L (22-29); Chloride 104 mmol/L (98-107); Globulin 2.3 g/dL (1.3-4.6); Glomerular Filtration Rate 98.8 mL/min (90-130); Glucose 225 mg/dL (65-115); Osmolality Calculated 302 mOsm/kg (285-295); Potassium 3.5 mmol/L (3.5-5.1); Sodium 141 mmol/L (136-145); Total Bilirubin 0.5 mg/dL (0.15-1.2); Total Protein 5.2 g/dL (6.6-8.7)
[2021-05-24 08:01] LABS: Slide Review Slide Review Perform
[2021-05-24] MEDS: budesonide 0.5 mg/2 mL Neb INHALATION ×2 (08:33→20:45)
[2021-05-24] MEDS: apixaban 5 mg Tablet PO ×2 (09:13→20:14)
[2021-05-24] MEDS: ascorbic acid 500 mg Tablet PO (09:13)
[2021-05-24] MEDS: zinc gluconate 50 mg Tablet PO (09:13)
[2021-05-24] MEDS: metoprolol tartrate 25 mg Tablet PO ×2 (09:13→20:15)
[2021-05-24] MEDS: benzonatate 100 mg Capsule 200 MG PO ×3 (09:13→20:14)
[2021-05-24] MEDS: insulin glargine 100 units/1 mL 30 UNIT SUBCUT ×2 (09:14→17:53)
--- NOTE | 2021-05-24 14:14 | P.PN_ITS ---
Subjective Subjective: Interval history: She feels that subjectively she continues to improve. Asking about when she may be able to return home. She is still having some mild cough. Discussed with her we had adjusted cough medication, and encouraged her to seek additional cough medicine from her nurse if needed. Denies any headache, nausea vomiting, diarrhea. No chest pain. Vitals/I&O/Wt Last Vital Signs Temp 98.6 F 05/24/21 12:00 Pulse 78 05/24/21 12:00 Resp 18 05/24/21 12:00 BP 145/70 05/24/21 12:00 Pulse Ox 94 05/24/21 12:00 05/23/21 05/24/21 05/24/21 22:59 06:59 14:59 Intake Total 810 / 1290 370 / 1660 240 / 240 Output Total 450 / 450 250 / 700 Balance 360 / 840 120 / 960 240 / 240 Weight last 48 hrs Weight 132.721 kg Weight 132.591 kg Physical Exam Const: COMMON NORMALS: no acute distress and patient oriented x3 NUTRITIONAL APPEARANCE: obese morbidly obese OTHER: Stronger. In better spirits. HENMT: COMMON NORMALS: oropharynx normal Neck/C-Spine: COMMON NORMALS: no JVD Resp: COMMON NORMALS: normal respiratory effort and clear to auscultation bilaterally AUSCULTATION: clear to auscultation bilaterally Cardio: COMMON NORMALS: no JVD, regular rhythm, S1 normal heart sound present, S2 normal heart sound present and No murmurs present (Cardio) RHYTHM: regular rhythm HEART SOUNDS: S1 normal heart sound present and S2 normal heart sound present GI: COMMON NORMALS: Normal to inspection, nondistended, normoactive bowel sounds present, Soft to palpation and non-tender PALPATION: Yes Soft to palpation Extremity: COMMON NORMALS: no joint enlargement and no pedal edema Neuro: COMMON NORMALS: patient oriented x3 and moves all extremities Skin: COMMON NORMALS: no rashes or lesions noted GENERAL SKIN EXAM: no rashes or lesions noted Urinary Catheter Management^: Angelo: Cath Placed During This Visit: yes Reason for Continuing Indwelling Catheter: Accurate Measurement of Urinary Output in Critically Ill Patients Urinary Catheter Date of Insertion: 05/17/21 Urinary Catheter Time of Insertion: 23:00 Data : 05/24/21 06:10 05/24/21 06:10 Micro: Microbiology 05/18/21 14:59 Blood Culture - Final Blood NO GROWTH AFTER 5 DAYS 05/18/21 14:52 Blood Culture - Final Blood NO GROWTH AFTER 5 DAYS A&P Assessment and plan (1) ARDS (adult respiratory distress syndrome): She is gradually continue to improve. FiO2 requirement is coming down. Cur rently on 55%, 30 L of oxygen. She is asking about returning home. Discussed with her oxygen requirement would need to come down further to something more manageable that she could receive at home. Severe COVID-19 pneumonia. Continue Decadron. Completed remdesivir. Continue empiric antibiotic coverage with ceftriaxone, azithromycin. Continue nebulization. Supportive care. Antitussives. Status: Acute (2) Pneumonia due to 2018-nCoV: Status: Suspected (3) Atrial fibrillation with RVR: Continue metoprolol, Eliquis. Status: Acute (4) Type 2 diabetes mellitus: Status: Acute (5) Hypertension: Continue motor pain. Losartan is held. Status: Acute Additional A&P Information Hypertension: Continue with home dose of amlodipine. losartan was held because of mild developing JOSE. Type 2 diabetes mellitus: Glucose somewhat variable, but did come down as low as 104 last night. Continue current regimen. Insulin sliding scale high-dose protocol. Lantus 30 units twice daily. Creatinine elevation: Resolved. Monitor renal function. Avoid nephrotoxic agents. Hypothyroidism: Continue home dose of levothyroxine. Attestations Medical Necessity Statement*: Continue admission for assessment management of hypoxic respiratory failure with severe COVID-19. Coding Level of Care Code Acute Sales Operations Director for [facility] Diagnoses ARDS (adult respiratory distress syndrome) J80 Pneumonia due to 2019-nCoV U07.1; J12.82 Atrial fibrillation with RVR I48.91 Type 2 diabetes mellitus E11.9 Hypertension I10
--- NOTE | 2021-05-24 15:07 | PC.CHAP ---
Pastoral Care Encounter/Spiritual Assessment Type of Contact [] Declined program director scouting visit [] Patient/Family/Request visit [] Outpatient visit [xx] Follow-up visit [] Physician referral [] Code/Alert [] Routine visit [] Staff referral [] Actively dying [] Patient sleeping [] Family support [] [] Out of room [] Palliative care [] [] Receiving care in room [] Pre-surgical visit [] Trauma [xx] Long length of stay [] ICU visit [xx] Other: ISOLATION Relational/Emotional Strength [] Patient feels connected with others/family/visitors/staff [] Distress [] Loneliness/isolation [] Abandonment Spirituality of Patient [] Person of Halley [] Attends Confucianist of their Halley [] Believes in Prayer [] Reads Bible or Anglican materials [] There are Spiritual issues to be addressed Assistant Teacher Interventions [] Prayer [] Active listening [] Non-anxious presence [] Spiritual/emotional support [] Crisis/trauma care [] Spiritual counseling [] Bereavement support [] Provided bereavement packet [] Provided Bible/devotional materials [] Provided toy/stuffed animal, coloring book to patient or family member [] Provided Communion [] Anointing/[place] [] Salvation [] Completed spiritual assessment [] Other: Impact on Illness or Injury [] Angry [] Fearful [] Anxious [] Often cries [] Exhaustion [] Unable to work [] Unable to attend yazidi [] Unable to walk/stand [] Unable to read [] Unable to drive [] Unable to eat/drink [] Unable to sleep [] Unable to be with family [] Patient intubated [] Other: Summary Time spent with patient
--- NOTE | 2021-05-24 16:31 | PC.SOCIAL ---
IMm Update pg 2 of IMM updated and reviewed w/ patient. Copy provided.
[2021-05-24] MEDS: dexamethasone 4 mg/mL INJ 6 MG IVP (17:53)
[2021-05-24] MEDS: cefTRIAXone 1,000 MG in sodium chloride 0.9% (plus) 50 ML 100 MG IV (19:10)
[2021-05-24] MEDS: azithromycin 500 MG in sodium chloride 0.9% 250 ML 250 MG IV (20:14)
[2021-05-25] VITALS (18 sets, daily range): BP systolic 124–169; BP diastolic 61–81; PULSE 77–109; RESP 16–24; TEMP 36.6–37.1; O2SAT 87–94
[2021-05-25] MEDS: famotidine 20 mg/2 mL INJ IVP ×2 (00:43→14:36)
[2021-05-25] MEDS: amlodipine 10 mg Tablet PO (05:33)
[2021-05-25] MEDS: duloxetine 30 mg Capsule PO (05:33)
[2021-05-25] MEDS: allopurinol 300 mg Tablet PO (05:33)
[2021-05-25] MEDS: levothyroxine 137 mcg Tablet PO (05:33)
[2021-05-25] MEDS: ipratropium-albuterol 3 mL Neb INHALATION ×5 (07:56→21:16)
[2021-05-25] MEDS: budesonide 0.5 mg/2 mL Neb INHALATION ×2 (07:56→21:15)
[2021-05-25 07:58] LABS: Basophils % 0.4 %; Eosinophils % 0.2 %; Hemoglobin 12.8 g/dL (11.5-15.3); Lymphocytes # 0.6 10^3/uL (0.8-4.8); Mean Corpuscular HGB Conc 31.2 g/dL (30.0-36.0); Mean Corpuscular Hemoglobin 29.2 pg (28.0-34.0); Mean Corpuscular Volume 93.4 fl (81-99); Monocytes # 0.7 10^3/uL (0.2-0.9); Monocytes % 7.2 %; Neutrophils # 7.68 10^3/uL (1.8-7.7); Nucleated Red Blood Cells % 0 %; Platelet Count 330 10^3/cmm (130-400); Red Blood Count 4.39 10^6/uL (4.1-5.3); Red Cell Distribution Width 13.4 % (12.1-15.1); White Blood Count 9.8 10^3/uL (4.0-10.0)
[2021-05-25 08:22] LABS: Alanine Aminotransferase 23 U/L (0-33); Albumin Level 2.9 g/dL (3.5-5.2); Alkaline Phosphatase 70 IU/L (35-105); Anion Gap 15.6 (5-19); Aspartate Amino Transferase 25 U/L (0-32); Blood Urea Nitrogen 20 mg/dL (8-23); Calcium 8.1 mg/dL (8.5-10.5); Carbon Dioxide 26 mmol/L (22-29); Chloride 105 mmol/L (98-107); Globulin 2.2 g/dL (1.3-4.6); Glomerular Filtration Rate 98.8 mL/min (90-130); Glucose 156 mg/dL (65-115); Osmolality Calculated 302 mOsm/kg (285-295); Potassium 3.6 mmol/L (3.5-5.1); Sodium 143 mmol/L (136-145); Total Bilirubin 0.6 mg/dL (0.15-1.2); Total Protein 5.1 g/dL (6.6-8.7)
[2021-05-25] MEDS: zinc gluconate 50 mg Tablet PO (09:19)
[2021-05-25] MEDS: metoprolol tartrate 25 mg Tablet PO ×2 (09:19→20:01)
[2021-05-25] MEDS: ascorbic acid 500 mg Tablet PO (09:20)
[2021-05-25] MEDS: benzonatate 100 mg Capsule 200 MG PO ×3 (09:20→20:01)
[2021-05-25] MEDS: apixaban 5 mg Tablet PO ×2 (09:20→20:01)
[2021-05-25] MEDS: insulin glargine 100 units/1 mL 30 UNIT SUBCUT ×2 (09:20→17:20)
[2021-05-25] MEDS: dexamethasone 4 mg/mL INJ 6 MG IVP (17:20)
[2021-05-25] MEDS: cefTRIAXone 1,000 MG in sodium chloride 0.9% (plus) 50 ML 100 MG IV (19:38)
[2021-05-25] MEDS: azithromycin 500 MG in sodium chloride 0.9% 250 ML 250 MG IV (22:25)
--- NOTE | 2021-05-25 22:34 | PM.PN ---
Subjective Subjective: Interval history: She reports still some mild intermittent cough. Discussed with her to request for cough medicine in case still coughing despite scheduled medicine. Denies headache, nausea vomiting or diarrhea. No chest pain. Vitals/I&O/Wt Last Vital Signs Temp 98.7 F 05/25/21 20:00 Pulse 88 05/25/21 21:16 Resp 18 05/25/21 21:16 BP 149/64 05/25/21 20:00 Pulse Ox 91 05/25/21 21:16 05/25/21 05/25/21 05/25/21 06:59 14:59 22:59 Intake Total 240 / 240 50 / 290 Output Total 300 / 900 Balance -300 / 300 240 / 240 50 / 290 Weight last 48 hrs Weight 137.847 kg Weight 132.721 kg Physical Exam Const: COMMON NORMALS: no acute distress and patient oriented x3 NUTRITIONAL APPEARANCE: obese morbidly obese OTHER: In better spirits. HENMT: COMMON NORMALS: oropharynx normal Neck/C-Spine: COMMON NORMALS: no JVD Resp: COMMON NORMALS: normal respiratory effort and clear to auscultation bilaterally AUSCULTATION: clear to auscultation bilaterally Cardio: COMMON NORMALS: no JVD, regular rhythm, S1 normal heart sound present, S2 normal heart sound present and No murmurs present (Cardio) RHYTHM: regular rhythm HEART SOUNDS: S1 normal heart sound present and S2 normal heart sound present GI: COMMON NORMALS: Normal to inspection, nondistended, normoactive bowel sounds present, Soft to palpation and non-tender PALPATION: Yes Soft to palpation Extremity: COMMON NORMALS: no joint enlargement and no pedal edema Neuro: COMMON NORMALS: patient oriented x3 and moves all extremities Skin: COMMON NORMALS: no rashes or lesions noted GENERAL SKIN EXAM: no rashes or lesions noted Urinary Catheter Management^: Angelo: Cath Placed During This Visit: yes Reason for Continuing Indwelling Catheter: Accurate Measurement of Urinary Output in Critically Ill Patients Urinary Catheter Date of Insertion: 05/17/21 Urinary Catheter Time of Insertion: 23:00 Data : 05/25/21 06:42 05/25/21 06:42 A&P Assessment and plan (1) ARDS (adult respiratory distress syndrome): FiO2 requirement continues to improve. Down to 45% today. Subjectively she is doing better. Continue Decadron. Completed remdesivir. Continue empiric antibiotic coverage with ceftriaxone, azithromycin. Continue nebulization. Supportive care. Antitussives. Status: Acute (2) Pneumonia due to 2019-nCoV: Status: Suspected (3) Atrial fibrillation with RVR: Continue metoprolol, Eliquis. Status: Acute (4) Type 2 diabetes mellitus: Status: Acute (5) Hypertension: Continue motor pain. Losartan is held. Status: Acute Additional A&P Information Hypertension: Continue with home dose of amlodipine. losartan was held because of mild developing JOSE. Type 2 diabetes mellitus: Glucose better, but did come down as low as 104 last night. Continue current regimen. Insulin sliding scale high-dose protocol. Lantus 30 units twice daily. Creatinine elevation: Resolved. Monitor renal function. Avoid nephrotoxic agents. Hypothyroidism: Continue home dose of levothyroxine. Attestations Medical Necessity Statement*: Continue admission for hypoxic respiratory failure with severe COVID-19. Coding Level of Care Code Acute Cylinder Die Machine Helper for [facility] Diagnoses ARDS (adult respiratory distress syndrome) J80 Pneumonia due to 2018-nCoV U07.1; J12.82 Atrial fibrillation with RVR I48.91 Type 2 diabetes mellitus E11.9 Hypertension I10
[2021-05-26] VITALS (14 sets, daily range): BP systolic 141–160; BP diastolic 67–73; PULSE 60–99; RESP 18–20; TEMP 36.4–37.1; O2SAT 90–94
[2021-05-26] MEDS: ipratropium-albuterol 3 mL Neb INHALATION ×6 (00:39→20:31)
[2021-05-26] MEDS: famotidine 20 mg/2 mL INJ IVP ×2 (01:07→14:36)
[2021-05-26] MEDS: duloxetine 30 mg Capsule PO (05:32)
[2021-05-26] MEDS: amlodipine 10 mg Tablet PO (05:32)
[2021-05-26] MEDS: levothyroxine 137 mcg Tablet PO (05:32)
[2021-05-26] MEDS: allopurinol 300 mg Tablet PO (05:32)
[2021-05-26 07:00] LABS: Hemoglobin 12.3 g/dL (11.5-15.3); Mean Corpuscular HGB Conc 31.5 g/dL (30.0-36.0); Mean Corpuscular Hemoglobin 29.4 pg (28.0-34.0); Mean Corpuscular Volume 93.3 fl (81-99); Mean Platelet Volume 11.2 fL (7.4-10.4); Platelet Count 331 10^3/cmm (130-400); Red Blood Count 4.18 10^6/uL (4.1-5.3); Red Cell Distribution Width 13.7 % (12.1-15.1); White Blood Count 9.3 10^3/uL (4.0-10.0)
[2021-05-26 07:43] LABS: Alanine Aminotransferase 28 U/L (0-33); Alkaline Phosphatase 72 IU/L (35-105); Anion Gap 14.7 (5-19); Aspartate Amino Transferase 23 U/L (0-32); Blood Urea Nitrogen 17 mg/dL (8-23); Calcium 8.6 mg/dL (8.5-10.5); Carbon Dioxide 27 mmol/L (22-29); Chloride 104 mmol/L (98-107); Globulin 1.8 g/dL (1.3-4.6); Glomerular Filtration Rate 98.8 mL/min (90-130); Glucose 171 mg/dL (65-115); Osmolality Calculated 300 mOsm/kg (285-295); Potassium 3.7 mmol/L (3.5-5.1); Sodium 142 mmol/L (136-145); Total Bilirubin 0.6 mg/dL (0.15-1.2); Total Protein 4.8 g/dL (6.6-8.7)
[2021-05-26 08:06] LABS: Glucose Point of Care 174 mg/dL (70-110)
[2021-05-26 08:06] LABS: Glucose Point of Care 231 mg/dL (70-110)
[2021-05-26 08:06] LABS: Glucose Point of Care 188 mg/dL (70-110)
[2021-05-26 08:08] LABS: Glucose Point of Care 140 mg/dL (70-110)
[2021-05-26 08:08] LABS: Glucose Point of Care 190 mg/dL (70-110)
[2021-05-26 08:08] LABS: Glucose Point of Care 301 mg/dL (70-110)
[2021-05-26 08:08] LABS: Glucose Point of Care 247 mg/dL (70-110)
[2021-05-26 08:08] LABS: Glucose Point of Care 153 mg/dL (70-110)
[2021-05-26] MEDS: budesonide 0.5 mg/2 mL Neb INHALATION ×2 (08:26→20:37)
[2021-05-26 09:21] LABS: Slide Review Slide Review Perform
[2021-05-26 09:24] LABS: Absolute Segmented Neutrophil 7.5 10/cmm (1.6-7.1); Band Neutrophils Absolute 0.4 10^3/cmm (0.0-1.2); Lymphocytes 9 %; Monocytes Absolute 0.1 10^3/cmm (0.1-0.6); Segmented Neutrophils 81 %; Total Cells Counted 100 (0-100)
[2021-05-26 09:25] LABS: Absolute Neutrophil 7.9 10^3/cmm (1.4-6.5); Eosinophils 0 %; Lymphocytes Absolute 0.8 10^3/cmm (1.2-3.4); Platelet Estimate Normal (Normal)
[2021-05-26] MEDS: ascorbic acid 500 mg Tablet PO (10:58)
[2021-05-26] MEDS: acetaminophen 325 mg Tablet 650 MG PO (10:59)
[2021-05-26] MEDS: benzonatate 100 mg Capsule 200 MG PO ×3 (10:59→21:43)
[2021-05-26] MEDS: apixaban 5 mg Tablet PO ×2 (10:59→21:42)
[2021-05-26] MEDS: metoprolol tartrate 25 mg Tablet PO ×2 (10:59→21:42)
[2021-05-26] MEDS: zinc gluconate 50 mg Tablet PO (10:59)
[2021-05-26] MEDS: insulin glargine 100 units/1 mL 30 UNIT SUBCUT ×2 (11:00→17:11)
--- NOTE | 2021-05-26 11:14 | PM.PN ---
Subjective Subjective: Interval history: She is doing all right. Still having occasional cough. Vitals/I&O/Wt Last Vital Signs Temp 98.5 F 05/26/21 08:00 Pulse 86 05/26/21 08:27 Resp 20 H 05/26/21 08:27 BP 160/73 05/26/21 08:00 Pulse Ox 94 05/26/21 08:27 05/25/21 05/26/21 05/26/21 22:59 06:59 14:59 Intake Total 50 / 290 250 / 540 Balance 50 / 290 250 / 540 Weight last 48 hrs Weight 136.259 kg Weight 137.847 kg Physical Exam Const: COMMON NORMALS: no acute distress and patient oriented x3 NUTRITIONAL APPEARANCE: obese morbidly obese HENMT: COMMON NORMALS: oropharynx normal Neck/C-Spine: COMMON NORMALS: no JVD Resp: COMMON NORMALS: normal respiratory effort and clear to auscultation bilaterally AUSCULTATION: clear to auscultation bilaterally Cardio: COMMON NORMALS: no JVD, regular rhythm, S1 normal heart sound present, S2 normal heart sound present and No murmurs present (Cardio) RHYTHM: regular rhythm HEART SOUNDS: S1 normal heart sound present and S2 normal heart sound present GI: COMMON NORMALS: Normal to inspection, nondistended, normoactive bowel sounds present, Soft to palpation and non-tender PALPATION: Yes Soft to palpation Extremity: COMMON NORMALS: no joint enlargement and no pedal edema Neuro: COMMON NORMALS: patient oriented x3 and moves all extremities Skin: COMMON NORMALS: no rashes or lesions noted GENERAL SKIN EXAM: no rashes or lesions noted Urinary Catheter Management^: Angelo: Cath Placed During This Visit: yes Reason for Continuing Indwelling Catheter: Acute Urinary Retention or Obstruction Urinary Catheter Date of Insertion: 05/17/21 Urinary Catheter Time of Insertion: 23:00 Data : 05/26/21 05:46 05/26/21 05:46 A&P Assessment and plan (1) ARDS (adult respiratory distress syndrome): Coming down on FiO2 requirement. We were able to come down to 37% on the heated high flow. Continue Decadron. Completed remdesivir. Continue empiric antibiotic coverage with ceftriaxone, azithromycin. Continue nebulization. Supportive care. Antitussives. PT Status: Acute (2) Pneumonia due to 2019-nCoV: Status: Suspected (3) Atrial fibrillation with RVR: Continue metoprolol, Eliquis. Status: Acute (4) Type 2 diabetes mellitus: Status: Acute (5) Hypertension: Continue amlodipine. Resume low-dose losartan. Status: Acute Additional A&P Information Type 2 diabetes mellitus: Sliding scale insulin. Lantus 30 units twice daily. Monitor. If appetite is good, and sugars rising, switch to consistent carbohydrate diet. Creatinine elevation: Resolved. Monitor renal function. Avoid nephrotoxic agents. Hypothyroidism: Continue home dose of levothyroxine. Attestations Medical Necessity Statement*: Continue admission for assessment management of hypoxic respite failure with severe ARDS, de-escalation of oxygen support. Coding Level of Care Code Acute Dictionary Editor for [facility] Diagnoses ARDS (adult respiratory distress syndrome) J80 Pneumonia due to 2019-nCoV U07.1; J12.82 Atrial fibrillation with RVR I48.91 Type 2 diabetes mellitus E11.9 Hypertension I10
--- NOTE | 2021-05-26 11:27 | PC.SOCIAL ---
IMM Updated Updated pt's son on Pg 2 IMM. No questions voiced. Provided pt a copy. Initialed, dated, & timed copy in chart.
[2021-05-26 11:55] LABS: Glucose Point of Care 183 mg/dL (70-110)
[2021-05-26 16:24] LABS: Glucose Point of Care 233 mg/dL (70-110)
[2021-05-26] MEDS: guaiFENesin 600 mg Tablet 1200 MG PO (17:10)
[2021-05-26] MEDS: dexamethasone 4 mg/mL INJ 6 MG IVP (17:10)
[2021-05-26 20:28] LABS: Glucose Point of Care 188 mg/dL (70-110)
[2021-05-26] MEDS: cefTRIAXone 1,000 MG in sodium chloride 0.9% (plus) 50 ML 100 MG IV (21:43)
[2021-05-26] MEDS: azithromycin 500 MG in sodium chloride 0.9% 250 ML 250 MG IV (22:26)
[2021-05-27] VITALS (20 sets, daily range): BP systolic 146–163; BP diastolic 61–75; PULSE 62–90; RESP 17–21; TEMP 36.4–37.2; O2SAT 91–93
[2021-05-27] MEDS: ipratropium-albuterol 3 mL Neb INHALATION ×6 (00:30→19:56)
[2021-05-27] MEDS: famotidine 20 mg/2 mL INJ IVP (01:04)
[2021-05-27] MEDS: allopurinol 300 mg Tablet PO (05:13)
[2021-05-27] MEDS: duloxetine 30 mg Capsule PO (05:13)
[2021-05-27] MEDS: amlodipine 10 mg Tablet PO (05:13)
[2021-05-27] MEDS: levothyroxine 137 mcg Tablet PO (05:17)
[2021-05-27 06:57] LABS: Glucose Point of Care 178 mg/dL (70-110)
[2021-05-27 07:15] LABS: Anion Gap 14.4 (5-19); Blood Urea Nitrogen 20 mg/dL (8-23); Calcium 8.5 mg/dL (8.5-10.5); Carbon Dioxide 26 mmol/L (22-29); Chloride 105 mmol/L (98-107); Glucose 185 mg/dL (65-115); Osmolality Calculated 299 mOsm/kg (285-295); Potassium 4.4 mmol/L (3.5-5.1); Sodium 141 mmol/L (136-145)
[2021-05-27] MEDS: apixaban 5 mg Tablet PO ×2 (07:53→21:21)
[2021-05-27] MEDS: ascorbic acid 500 mg Tablet PO (07:53)
[2021-05-27] MEDS: benzonatate 100 mg Capsule 200 MG PO ×3 (07:54→21:20)
[2021-05-27] MEDS: metoprolol tartrate 25 mg Tablet PO ×2 (07:54→21:20)
[2021-05-27] MEDS: guaiFENesin 600 mg Tablet 1200 MG PO ×2 (07:54→16:55)
[2021-05-27] MEDS: losartan 50 mg Tablet 25 MG PO (07:54)
[2021-05-27] MEDS: zinc gluconate 50 mg Tablet PO (07:55)
[2021-05-27] MEDS: budesonide 0.5 mg/2 mL Neb INHALATION ×2 (08:07→19:56)
[2021-05-27] MEDS: insulin glargine 100 units/1 mL 30 UNIT SUBCUT (08:07)
--- NOTE | 2021-05-27 09:12 | PM.PN ---
Subjective Subjective: Interval history: No concerns overnight. Hospital course reviewed. Medications: Reviewed: Yes Vitals/I&O/Wt Last Vital Signs Temp 98.3 F 05/27/21 04:00 Pulse 75 05/27/21 08:16 Resp 18 05/27/21 08:16 BP 151/63 05/27/21 04:00 Pulse Ox 93 05/27/21 08:16 05/26/21 05/27/21 05/27/21 22:59 06:59 14:59 Intake Total 318 / 718 250 / 968 Output Total 1300 / 1300 350 / 1650 Balance -982 / -582 -100 / -682 Weight last 48 hrs Weight 135.806 kg Weight 136.259 kg Physical Exam Narrative: EXAM NARRATIVE: General exam no apparent distress Neck is supple Cardiovascular regular rate and rhythm Lungs clear Abdomen is soft, positive bowel sounds Extremities no cyanosis clubbing or edema Urinary Catheter Management^: Angelo: Cath Placed During This Visit: yes Reason for Continuing Indwelling Catheter: Accurate Measurement of Urinary Output in Critically Ill Patients Urinary Catheter Date of Insertion: 05/17/21 Urinary Catheter Time of Insertion: 23:00 Data : 05/26/21 05:46 05/27/21 06:10 A&P Assessment and plan (1) ARDS (adult respiratory distress syndrome): FiO2 decreasing She has had 10 days of dexamethasone, discontinue Remdesivir has been completed She has received adequate empiric coverage of antibiotics and no evidence of bacterial infection. Discontinue these. Continue supportive care Antitussives. Up and out of bed today PT Status: Acute (2) Pneumonia due to 2019-nCoV: Status: Suspected (3) Atrial fibrillation with RVR: Continue metoprolol, Eliquis. Status: Acute (4) Type 2 diabetes mellitus: Decrease Lantus as steroids will be discontinued Status: Acute (5) Hypertension: Continue amlodipine. Resume low-dose losartan. Status: Acute Additional A&P Information Acute kidney injury, resolved Hypothyroidism, continue levothyroxine Overall goal is home No need for laboratory tomorrow. Attestations Medical Necessity Statement*: Needs continued hospitalization secondary to severe COVID-19 pneumonia with ARDS, still requiring large amounts of oxygen. Coding Level of Care Code Acute Cone Worker for [facility] Diagnoses ARDS (adult respiratory distress syndrome) J80 Pneumonia due to 2018-nCoV U07.1; J12.82 Atrial fibrillation with RVR I48.91 Type 2 diabetes mellitus E11.9 Hypertension I10
[2021-05-27 13:10] LABS: Glucose Point of Care 141 mg/dL (70-110)
[2021-05-27] MEDS: famotidine 20 mg Tablet PO (16:55)
[2021-05-27 17:05] LABS: Glucose Point of Care 322 mg/dL (70-110)
[2021-05-27 21:26] LABS: Glucose Point of Care 187 mg/dL (70-110)
[2021-05-27] MEDS: insulin glargine 100 units/1 mL 10 UNIT SUBCUT (21:30)
[2021-05-28] VITALS (17 sets, daily range): BP systolic 150–188; BP diastolic 70–86; PULSE 57–75; RESP 16–22; TEMP 36.4–36.5; O2SAT 90–97
[2021-05-28] MEDS: ipratropium-albuterol 3 mL Neb INHALATION ×5 (00:46→20:16)
[2021-05-28] MEDS: duloxetine 30 mg Capsule PO (05:54)
[2021-05-28] MEDS: levothyroxine 137 mcg Tablet PO (05:54)
[2021-05-28] MEDS: amlodipine 10 mg Tablet PO (05:54)
[2021-05-28] MEDS: allopurinol 300 mg Tablet PO (05:54)
[2021-05-28 06:30] LABS: Glucose Point of Care 83 mg/dL (70-110)
[2021-05-28 07:05] LABS: Blood Urea Nitrogen 27 mg/dL (8-23); Calcium 8.2 mg/dL (8.5-10.5); Carbon Dioxide 28 mmol/L (22-29); Chloride 109 mmol/L (98-107); Glomerular Filtration Rate 98.8 mL/min (90-130); Glucose 67 mg/dL (65-115); Osmolality Calculated 301 mOsm/kg (285-295); Sodium 144 mmol/L (136-145)
[2021-05-28 07:20] LABS: Anion Gap 11.1 (5-19); Potassium 4.1 mmol/L (3.5-5.1)
[2021-05-28] MEDS: budesonide 0.5 mg/2 mL Neb INHALATION ×2 (07:44→20:16)
[2021-05-28] MEDS: apixaban 5 mg Tablet PO ×2 (08:11→21:31)
[2021-05-28] MEDS: metoprolol tartrate 25 mg Tablet PO ×2 (08:12→21:31)
[2021-05-28] MEDS: famotidine 20 mg Tablet PO ×2 (08:12→18:02)
[2021-05-28] MEDS: guaiFENesin 600 mg Tablet 1200 MG PO ×2 (08:12→18:02)
[2021-05-28] MEDS: losartan 50 mg Tablet 25 MG PO (08:12)
[2021-05-28] MEDS: benzonatate 100 mg Capsule 200 MG PO (08:12)
--- NOTE | 2021-05-28 09:21 | P.PN_ITS ---
Documented by User: CAROLYN Taylor STDNAN 05/28/21 10:28 Subjective Subjective: Interval history: Christina reports she is feeling better this morning. She has increased strength and appetite. She is still coughing occasionally but no phlegm. She is on 8L high flow oxygen. Medications: Reviewed: Yes Vitals/I&O/Wt Last Vital Signs Temp 97.7 F 05/28/21 08:00 Pulse 75 05/28/21 08:00 Resp 22 H 05/28/21 08:00 BP 171/70 05/28/21 08:12 Pulse Ox 90 05/28/21 08:00 05/27/21 05/28/21 05/28/21 22:59 06:59 14:59 Intake Total 1040 / 1040 360 / 360 Output Total 800 / 800 525 / 1325 Balance 240 / 240 -525 / -285 360 / 360 Weight last 48 hrs Weight 137.07 kg Weight 135.806 kg Physical Exam Narrative: EXAM NARRATIVE: General exam female in no apparent distress. Neck is supple, no lymphadenopathy or JVD. Cardiovascular regular rate and rhythm, no murmurs. Lungs clear bilaterally no wheezes. Abdomen is soft, nontender, with positive bowel sounds. No organomegaly. Extremities no cyanosis clubbing or edema. Skin no rash deferred Urinary Catheter Management^: Angelo: Cath Placed During This Visit: yes Reason for Continuing Indwelling Catheter: Accurate Measurement of Urinary Output in Critically Ill Patients Urinary Catheter Date of Insertion: 05/17/21 Urinary Catheter Time of Insertion: 23:00 Data : 05/26/21 05:46 05/28/21 06:25 A&P Assessment and plan (1) ARDS (adult respiratory distress syndrome): Continue to decrease FiO2 as tolerated. Continue supportive care. Antitussives. Up and out of bed today. 10 days of dexamethasone completed. Remdesivir has been completed. PT Status: Acute (2) Pneumonia due to 2019-nCoV: Status: Suspected (3) Atrial fibrillation with RVR: Continue metoprolol, Eliquis. Status: Acute (4) Type 2 diabetes mellitus: Continue lantus. Status: Acute (5) Hypertension: Continue amlodipine. Resume low-dose losartan. Status: Acute Additional A&P Information Remove Angelo. Acute kidney injury, resolved. Hypothyroidism, continue levothyroxine. Overall goal is home No need for laboratory tomorrow. Attestations Medical Necessity Statement*: Needs continued hospitalization secondary to severe COVID-19 pneumonia with ARDS, still requiring large amounts of oxygen Coding Level of Care Code Acute Plug Shaper Hand for [facility] Fwd Diagnoses ARDS (adult respiratory distress syndrome) J80 Pneumonia due to 2019-nCoV U07.1; J12.82 Atrial fibrillation with RVR I48.91 Type 2 diabetes mellitus E11.9 Hypertension I10 Documented by User: Saeid Noyola MD 05/28/21 11:24 Subjective Subjective: Interval history: Agree with above, I saw patient and interviewed her as well. Medications: Reviewed: Yes Physical Exam Narrative: EXAM NARRATIVE: Agree with above. No changes warranted. Urinary Catheter Management^: Angelo: Cath Placed During This Visit: no Data : 05/26/21 05:46 05/28/21 06:25 A&P Additional A&P Information Agree with all of that stated above. I reviewed in detail with the medical student. Discontinue Angelo today, work on mobilization with hopes that discharge can occur when FiO2 requirement has decreased significantly. I suspect this will occur when she reaches 5 to 6 L per nasal cannula and I suspect it will happen in 4 to 5 days. Discontinue Lantus. Sugar has improved significantly with discontinuation of dexamethasone. No laboratory needed tomorrow. We will plan on obtaining this on May 30. Increase losartan secondary to persistent hypertension. Attestations Medical Necessity Statement*: Needs continued hospital stay secondary to COVID-19 pneumonia requiring significant amount of high flow oxygen. Coding Level of Care Code Acute Plug Shaper Hand for [facility] Diagnoses ARDS (adult respiratory distress syndrome) J80 Pneumonia due to 2019-nCoV U07.1; J12.82 Atrial fibrillation with RVR I48.91 Type 2 diabetes mellitus E11.9 Hypertension I10
[2021-05-28] MEDS: insulin glargine 100 units/1 mL 10 UNIT SUBCUT (10:41)
[2021-05-28 12:06] LABS: Glucose Point of Care 99 mg/dL (70-110)
--- NOTE | 2021-05-28 15:36 | PC.SOCIAL ---
IMM update IMM updated with patient. Verbalized an understanding. Initialled, dated, timed, and placed in chart.
[2021-05-28 17:13] LABS: Glucose Point of Care 87 mg/dL (70-110)
--- NOTE | 2021-05-28 18:07 | PC.NURSE ---
Shift Note Frequent safety and comfort rounds continue. Orders and/or nursing care completed as indicated. Patient monitored for response to intervention and treatment(s). Education provided includes healthy diet and monitoring blood sugars and insulins. Patient verbalized understanding. Patient's araiza catheter was removed per providers orders and patient tolerated removal well. Patient is currently resting comfortably in bed. Will continue to monitor.
[2021-05-28 21:06] LABS: Glucose Point of Care 143 mg/dL (70-110)
[2021-05-29] VITALS (14 sets, daily range): BP systolic 124–155; BP diastolic 59–81; PULSE 61–95; RESP 16–22; TEMP 36.4–36.8; O2SAT 89–99
[2021-05-29] MEDS: ipratropium-albuterol 3 mL Neb INHALATION ×4 (00:30→16:18)
[2021-05-29 00:35] LABS: Glucose Point of Care 49 mg/dL (70-110)
[2021-05-29 00:47] LABS: Glucose Point of Care 95 mg/dL (70-110)
[2021-05-29 04:26] LABS: Glucose Point of Care 234 mg/dL (70-110)
[2021-05-29] MEDS: levothyroxine 137 mcg Tablet PO (06:07)
[2021-05-29] MEDS: duloxetine 30 mg Capsule PO (06:07)
[2021-05-29] MEDS: amlodipine 10 mg Tablet PO (06:07)
[2021-05-29] MEDS: allopurinol 300 mg Tablet PO (06:07)
[2021-05-29 06:34] LABS: Glucose Point of Care 200 mg/dL (70-110)
--- NOTE | 2021-05-29 07:59 | P.PN_ITS ---
Documented by User: Christina DickinsonnellCAROLYN STDNAN 05/29/21 10:12 Subjective Subjective: Interval history: Christina reports she is feeling stronger this morning and looking forward to going home. She was able to walk around her room yesterday without getting short of breath. She reports an episode of hypoglycemia last night that resolved after she ate. Blood glucose is 200 this a.m. She is on 7L nasal cannula, normally not on oxygen at home. Reports cough has improved. Denies chest pain. Medications: Reviewed: Yes Vitals/I&O/Wt Last Vital Signs Temp 97.8 F 05/29/21 07:55 Pulse 66 05/29/21 07:55 Resp 17 05/29/21 07:55 BP 155/77 05/29/21 07:55 Pulse Ox 99 05/29/21 07:55 05/28/21 05/29/21 05/29/21 22:59 06:59 14:59 Intake Total 360 / 720 Output Total 302 / 302 Balance 58 / 418 Weight last 48 hrs Weight 136.333 kg Weight 137.07 kg Physical Exam Narrative: EXAM NARRATIVE: General exam female in no apparent distress. Neck is supple, no lymphadenopathy or JVD. Cardiovascular regular rate and rhythm, no murmurs. Lungs clear bilaterally no wheezes. Abdomen is soft, nontender, with positive bowel sounds. No organomegaly. Extremities no cyanosis clubbing or edema. Skin no rash deferred Urinary Catheter Management^: Angelo: Cath Placed During This Visit: yes, but has since been removed by the nurse Reason for Continuing Indwelling Catheter: Decision to DC Catheter Urinary Catheter Date of Insertion: 05/17/21 Urinary Catheter Time of Insertion: 23:00 Date Urinary Catheter Removed: 05/28/21 Time Urinary Catheter Discontinued: 11:25 Data : 05/26/21 05:46 05/28/21 06:25 A&P Assessment and plan (1) ARDS (adult respiratory distress syndrome): Continue to decrease FiO2 as tolerated. Continue supportive care. Continue PT and work on mobilization. 10 days of dexamethasone completed. Remdesivir has been completed. PT Status: Acute (2) Pneumonia due to 2019-nCoV: Status: Suspected (3) Atrial fibrillation with RVR: Continue metoprolol, Eliquis. Status: Acute (4) Type 2 diabetes mellitus: Low-dose insulin regimen. Status: Acute (5) Hypertension: Continue amlodipine and losartan. Status: Acute Attestations Medical Necessity Statement*: Needs continued hospital stay secondary to COVID-19 pneumonia requiring significant amount of high flow oxygen. Coding Level of Care Code Acute Internal Medicine Physician Assistant for [facility] Fwd Diagnoses ARDS (adult respiratory distress syndrome) J80 Pneumonia due to 2019-nCoV U07.1; J12.82 Atrial fibrillation with RVR I48.91 Type 2 diabetes mellitus E11.9 Hypertension I10 Documented by User: Saeid Noyola MD 05/29/21 10:50 Subjective Subjective: Interval history: Agree with above. Patient reports she feels somewhat better. Medications: Reviewed: Yes Physical Exam Narrative: EXAM NARRATIVE: Agree with above, no changes needed Urinary Catheter Management^: Angelo: Cath Placed During This Visit: no Data : 05/26/21 05:46 05/28/21 06:25 A&P Additional A&P Information Overall appears to be improving. Down to 7 L of oxygen Agree with assessment and plan as outlined by the student which I discussed with her in detail Have discontinued Lantus completely secondary to low blood sugar and if reduced sliding scale to mild Continue to wean oxygen as tolerated Check laboratory tomorrow Overall slowly improving. Plan is discharge home. Attestations Medical Necessity Statement*: Needs continued hospitalization secondary to COVID-19 pneumonia with high oxygen requirement requiring continued hospitalization. Coding Level of Care Code Acute Internal Medicine Physician Assistant for [facility] Fwd Diagnoses ARDS (adult respiratory distress syndrome) J80 Pneumonia due to 2019-nCoV U07.1; J12.82 Atrial fibrillation with RVR I48.91 Type 2 diabetes mellitus E11.9 Hypertension I10
[2021-05-29] MEDS: budesonide 0.5 mg/2 mL Neb INHALATION (08:11)
[2021-05-29] MEDS: guaiFENesin 600 mg Tablet 1200 MG PO ×2 (09:57→18:48)
[2021-05-29] MEDS: famotidine 20 mg Tablet PO ×2 (09:58→18:49)
[2021-05-29] MEDS: losartan 50 mg Tablet PO (09:58)
[2021-05-29] MEDS: apixaban 5 mg Tablet PO ×2 (09:58→21:19)
[2021-05-29] MEDS: metoprolol tartrate 25 mg Tablet PO ×2 (09:58→21:19)
[2021-05-29 11:06] LABS: Glucose Point of Care 182 mg/dL (70-110)
[2021-05-29 17:57] LABS: Glucose Point of Care 167 mg/dL (70-110)
[2021-05-29 20:28] LABS: Glucose Point of Care 252 mg/dL (70-110)
[2021-05-30] VITALS (9 sets, daily range): BP systolic 120–145; BP diastolic 58–81; PULSE 70–90; RESP 16–20; TEMP 36.4–36.8; O2SAT 84–96
[2021-05-30] MEDS: ipratropium-albuterol 3 mL Neb INHALATION ×4 (01:36→11:28)
[2021-05-30] MEDS: amlodipine 10 mg Tablet PO (05:21)
[2021-05-30] MEDS: levothyroxine 137 mcg Tablet PO (05:21)
[2021-05-30] MEDS: duloxetine 30 mg Capsule PO (05:21)
[2021-05-30] MEDS: allopurinol 300 mg Tablet PO (05:21)
[2021-05-30 05:49] LABS: Glucose Point of Care 104 mg/dL (70-110)
[2021-05-30 06:09] LABS: Basophils % 0.5 %; Eosinophils # 0.2 10^3/uL (0.0-0.8); Eosinophils % 2.8 %; Hematocrit 39.8 % (37.0-47.0); Hemoglobin 12.2 g/dL (11.5-15.3); Lymphocytes # 1.3 10^3/uL (0.8-4.8); Lymphocytes % 20.4 %; Mean Corpuscular HGB Conc 30.7 g/dL (30.0-36.0); Mean Corpuscular Hemoglobin 29.2 pg (28.0-34.0); Mean Corpuscular Volume 95.2 fl (81-99); Mean Platelet Volume 11.5 fL (7.4-10.4); Monocytes # 0.8 10^3/uL (0.2-0.9); Neutrophils # 3.98 10^3/uL (1.8-7.7); Neutrophils % 60.9 %; Nucleated Red Blood Cells % 0 %; Platelet Count 243 10^3/cmm (130-400); Red Blood Count 4.18 10^6/uL (4.1-5.3); White Blood Count 6.5 10^3/uL (4.0-10.0)
[2021-05-30 06:34] LABS: Alanine Aminotransferase 46 U/L (0-33); Albumin Level 2.7 g/dL (3.5-5.2); Alkaline Phosphatase 64 IU/L (35-105); Anion Gap 12.3 (5-19); Aspartate Amino Transferase 27 U/L (0-32); Blood Urea Nitrogen 21 mg/dL (8-23); Calcium 8.1 mg/dL (8.5-10.5); Carbon Dioxide 25 mmol/L (22-29); Chloride 109 mmol/L (98-107); Globulin 1.8 g/dL (1.3-4.6); Glomerular Filtration Rate 98.8 mL/min (90-130); Glucose 107 mg/dL (65-115); Osmolality Calculated 297 mOsm/kg (285-295); Potassium 4.3 mmol/L (3.5-5.1); Sodium 142 mmol/L (136-145); Total Bilirubin 0.8 mg/dL (0.15-1.2); Total Protein 4.5 g/dL (6.6-8.7)
[2021-05-30] MEDS: budesonide 0.5 mg/2 mL Neb INHALATION (07:49)
[2021-05-30] MEDS: losartan 50 mg Tablet PO (07:52)
[2021-05-30] MEDS: guaiFENesin 600 mg Tablet 1200 MG PO (07:52)
[2021-05-30] MEDS: metoprolol tartrate 25 mg Tablet PO (07:52)
[2021-05-30] MEDS: famotidine 20 mg Tablet PO (07:52)
[2021-05-30] MEDS: apixaban 5 mg Tablet PO (07:52)
--- NOTE | 2021-05-30 09:56 | P.PN_ITS ---
Documented by User: Christina DickinsonnellCAROLYN STDNT 05/30/21 10:50 Subjective Subjective: Interval history: Christina reports that she is feeling stronger today and is looking forward to going home. She is currently requiring 5 L nasal cannula. She has been able to get up and walk around the room with therapy and reports no short of breath on exertion. Medications: Reviewed: Yes Vitals/I&O/Wt Last Vital Signs Temp 98.3 F 05/30/21 04:00 Pulse 71 05/30/21 08:03 Resp 20 H 05/30/21 07:52 BP 120/58 05/30/21 04:00 Pulse Ox 92 05/30/21 07:52 05/29/21 05/30/21 05/30/21 22:59 06:59 14:59 Intake Total 120 / 600 640 / 1240 Output Total 320 / 320 Balance 120 / 600 320 / 920 Weight last 48 hrs Weight 136.645 kg Weight 136.333 kg Physical Exam Urinary Catheter Management^: Angelo: Cath Placed During This Visit: yes, but has since been removed by the nurse Reason for Continuing Indwelling Catheter: Decision to DC Catheter Urinary Catheter Date of Insertion: 05/17/21 Urinary Catheter Time of Insertion: 23:00 Date Urinary Catheter Removed: 05/28/21 Time Urinary Catheter Discontinued: 11:25 Data : 05/30/21 05:24 05/30/21 05:24 Coding Level of Care Code Acute Foundry Melt Supervisor for [facility] Fwd Diagnoses ARDS (adult respiratory distress syndrome) J80 Pneumonia due to 2019-nCoV U07.1; J12.82 Atrial fibrillation with RVR I48.91 Type 2 diabetes mellitus E11.9 Hypertension I10 Documented by User: Saeid Noyola MD 05/30/21 12:52 Subjective Subjective: Interval history: Agree with above Medications: Reviewed: Yes Physical Exam Narrative: EXAM NARRATIVE: General exam no distress Neck is supple Cardiovascular regular rhythm, no murmur, regular rate Lungs few coarse breath sounds bilaterally Abdomen is soft, obese Extremities no cyanosis clubbing or edema Urinary Catheter Management^: Angelo: Cath Placed During This Visit: no Data : 05/30/21 05:24 05/30/21 05:24 A&P Assessment and plan (1) ARDS (adult respiratory distress syndrome): Status: Acute (2) Pneumonia due to 2019-nCoV: Status: Suspected (3) Atrial fibrillation with RVR: Status: Acute (4) Type 2 diabetes mellitus: Status: Acute (5) Hypertension: Status: Acute Additional A&P Information Overall appears to be improving. Down to 5 L of oxygen Ready for discharge. See discharge summary Attestations Medical Necessity Statement*: Not applicable Coding Level of Care Code Acute Foundry Melt Supervisor for [facility] Diagnoses ARDS (adult respiratory distress syndrome) J80 Pneumonia due to 2019-nCoV U07.1; J12.82 Atrial fibrillation with RVR I48.91 Type 2 diabetes mellitus E11.9 Hypertension I10
[2021-05-30 10:10] LABS: Glucose Point of Care 159 mg/dL (70-110)
--- NOTE | 2021-05-30 11:03 | PC.SOCIAL ---
IMM update IMM updated with patient. Verbalized an understanding. Initialled, dated, timed, and placed in chart.
[2021-05-30 12:15] LABS: Glucose Point of Care 113 mg/dL (70-110)
--- NOTE | 2021-05-30 12:46 | P.DS_ITS ---
Discharge Providers Date of Admission: 05/17/21 17:25 Date of Discharge: May 30, 2021 Attending Provider at Admission: Antoni Garcia MD Attending Provider at Discharge: Saeid Noyola MD Primary Care Provider: Delmer Green DO Diagnoses at Discharge Discharge Diagnosis (1) ARDS (adult respiratory distress syndrome): Status: Acute (2) Pneumonia due to 2019-nCoV: Status: Suspected (3) Atrial fibrillation with RVR: Status: Acute (4) Type 2 diabetes mellitus: Status: Acute (5) Hypertension: Status: Acute Reason for Visit Reason for Visit: N/V COVID EXPOSURE SOB Hospital Course Hospital Course Christina presented to the hospital short of breath. She was found to have bilat eral pneumonia secondary to COVID-19. She was also noted to be in atrial fibrillation, with rapid ventricular rate. Anticoagulation was initiated. She was placed on remdesivir and dexamethasone. Metoprolol was initiated secondary to her atrial fibrillation. Echocardiogram was obtained which demonstrated preserved EF normal diastolic dysfunction mildly dilated left atrium and no obvious wall motion abnormalities. She received empiric antibiotic coverage with Rocephin and azithromycin. During her hospital stay she required high flow oxygen, which was able to be gradually weaned down. By time of discharge she was on 5 L, saturating excellently even with exertion. She was strong enough to be up and around the room. It was thought she could discharge at this time with close follow-up as an outpatient. Troponin was checked during her hospital stay and was not significantly elevated. CTA was performed and no evidence of pulmonary embolism. Physical Exam Narrative: EXAM NARRATIVE: General exam no distress Neck is supple Cardiovascular regular rhythm, no murmur, regular rate Lungs few coarse breath sounds bilaterally Abdomen is soft, obese Extremities no cyanosis clubbing or edema Urinary Catheter Management^: Angelo: Cath Placed During This Visit: yes, but has since been removed by the nurse Reason for Continuing Indwelling Catheter: Decision to DC Catheter Urinary Catheter Date of Insertion: 05/17/21 Urinary Catheter Time of Insertion: 23:00 Date Urinary Catheter Removed: 05/28/21 Time Urinary Catheter Discontinued: 11:25 Discharge Data Data Completed and Pending: Completed Studies During Hospitalization Category Date Time Status CT angio chest PE protcl [id number] Urge nt Cat Scan 05/17/21 16:34 Completed XR chest 1V cm ble 17797 Q48H Exams 05/18/21 06:00 Completed XR chest 1V cm ble [id number] Q48H Exams 05/20/21 06:00 Completed XR chest 1V cm ble 60944 Q48H Exams 05/22/21 06:00 Completed XR chest 1V cm ble [id number] Stat Exams 05/17/21 15:49 Completed CV. echo complete * [id number] Routine Ultrasound 05/19/21 06:00 Completed Pending at discharge Category Date Time Status Sputum Culture an d Gram Stain Stat Lab 05/17/21 16:38 Uncollected Labs from last 24 hours 05/30/21 05/30/21 05/30/21 12:08 10:01 05:45 WBC RBC Hgb Hct MCV MCH MCHC RDW Plt Count MPV Neut % (Auto) Lymph % (Auto) [place] % (Auto) Eos % (Auto) Baso % (Auto) Neut # (Auto) Lymph # (Auto) [place] # (Auto) Eos # (Auto) Baso # (Auto) Nucleated RBC % (a uto) Nucleated RBCs # Sodium Potassium Chloride Carbon Dioxide Anion Gap BUN Creatinine GFR Calculation Glucose POC Glucose 113 H 159 H 104 Calculated Osmolal ity Calcium Total Bilirubin AST ALT Alkaline Phosphata se Total Protein Albumin Globulin 05/30/21 05/30/21 05/29/21 05:24 05:24 20:26 WBC 6.5 RBC 4.18 Hgb 12.2 Hct 39.8 MCV 95.2 MCH 29.2 MCHC 30.7 RDW 14.0 Plt Count 243 MPV 11.5 H Neut % (Auto) 60.9 Lymph % (Auto) 20.4 [place] % (Auto) 12.0 Eos % (Auto) 2.8 Baso % (Auto) 0.5 Neut # (Auto) 3.98 Lymph # (Auto) 1.3 [place] # (Auto) 0.8 Eos # (Auto) 0.2 Baso # (Auto) 0.0 Nucleated RBC % (a uto) 0 Nucleated RBCs # 0.0 Sodium 142 Potassium 4.3 Chloride 109 H Carbon Dioxide 25 Anion Gap 12.3 BUN 21 Creatinine 0.6 GFR Calculation 98.8 Glucose 107 POC Glucose 252 H Calculated Osmolal ity 297 H Calcium 8.1 L Total Bilirubin 0.8 AST 27 ALT 46 H Alkaline Phosphata se 64 Total Protein 4.5 L Albumin 2.7 L Globulin 1.8 05/29/21 17:55 WBC RBC Hgb Hct MCV MCH MCHC RDW Plt Count MPV Neut % (Auto) Lymph % (Auto) [place] % (Auto) Eos % (Auto) Baso % (Auto) Neut # (Auto) Lymph # (Auto) [place] # (Auto) Eos # (Auto) Baso # (Auto) Nucleated RBC % (a uto) Nucleated RBCs # Sodium Potassium Chloride Carbon Dioxide Anion Gap BUN Creatinine GFR Calculation Glucose POC Glucose 167 H Calculated Osmolal ity Calcium Total Bilirubin AST ALT Alkaline Phosphata se Total Protein Albumin Globulin Vitals: Last Vital Signs Temp 98.2 F 05/30/21 08:00 Pulse 72 05/30/21 11:34 Resp 18 05/30/21 11:34 BP 136/76 05/30/21 08:00 Pulse Ox 96 05/30/21 11:34 Discharge Plan Discharge Patient Disposition: Home Health Service Condition: Stable Prescriptions: New metoprolol tartrate 25 mg Tablet 25 mg PO BID@00,2100 Qty: 60 RF: 0 losartan 50 mg Tablet 50 mg PO DAILY Qty: 30 RF: 0 albuterol sulfate [Ventolin HFA] 90 mcg/actuation Hfa Aerosol Inhaler 2 puff inhalation Q4H.RESPIRATORY PRN (Reason: Shortness Of Breath) Qty: 1 RF: 0 Eliquis 5 mg Tablet 5 mg PO BID@899,2100 Qty: 60 RF: 0 Continued Synthroid 137 mcg tablet 137 mcg PO QAM RF: 0 ondansetron HCl 4 mg tablet 4 mg PO Q6H PRN (Reason: Nausea) RF: 0 gabapentin 400 mg capsule 400 mg PO TID RF: 0 pioglitazone 45 mg tablet 45 mg PO QAM RF: 0 amlodipine 10 mg tablet 10 mg PO QAM RF: 0 raloxifene 60 mg tablet 60 mg PO QAM RF: 0 allopurinol 300 mg tablet 300 mg PO QAM RF: 0 esomeprazole magnesium 20 mg capsule,delayed release(DR/EC) 20 mg PO QAM RF: 0 duloxetine 30 mg capsule,delayed release(DR/EC) 30 mg PO QAM RF: 0 Trulicity 1.5 mg/0.5 mL pen injector 1.5 mg SUBCUT Q7D RF: 0 Discontinued losartan 100 mg tablet 100 mg PO QAM RF: 0 Discharge Orders: Discharge Order (Routine); Ordered 05/30/21 Ordered By: Saeid Noyola Referrals: Delmer Green DO [Primary Care Provider] - 4-7 days (Follow-up by telehealth Thursday VILMA CASTRO in 3 to 5 days) Discharge Diet: Diabetic Discharge Activity: Increase activity as tolerated Patient Instructions: Opioid Safety Activity Restrictions/Additional Instructions: Take all medicine as prescribed Return for any concerns or worsening. Discharge Attestations Time Spent in Discharge Care*: greater than 30 min Quality Metrics Clinical Quality Measures During this hospital stay, did patient experience: None Coding Level of Care Code Acute [facility] note Diagnoses ARDS (adult respiratory distress syndrome) J80 Pneumonia due to 2019-nCoV U07.1; J12.82 Atrial fibrillation with RVR I48.91 Type 2 diabetes mellitus E11.9 Hypertension I10
[2021-05-30 17:33] LABS: Glucose Point of Care 195 mg/dL (70-110)
== END 2021-05-30 18:02 | disposition home health service (06) | DRG 177 ==
LOC: ER 17:29 → MEDSURG 05-18 05:43 → MS 2A 05-18 12:05 → ICU 05-19 23:42 → MS 2A 05-21 12:51 → MEDSURG 05-22 15:21
PROVIDERS: Internal Medicine; Admitting Provider Student in an Organized Health Care Education/Training Program; Emergency Provider Emergency Medicine; PCP Internal Medicine; Visit Provider Internal Medicine
DX: U07.1 COVID-19 (principal); J12.82 Pneumonia due to coronavirus disease 2019; J80 Acute respiratory distress syndrome; I25.10 Atherosclerotic heart disease of native coronary artery without angina pectoris; I10 Essential (primary) hypertension; E11.9 Type 2 diabetes mellitus without complications; E03.9 Hypothyroidism, unspecified; M81.0 Age-related osteoporosis without current pathological fracture; I48.91 Unspecified atrial fibrillation; Z66 Do not resuscitate; Z79.4 Long term (current) use of insulin
CPT/HCPCS: 36415; 36416; 36600; 51702; 71045; 71275; 80048; 80051; 80053; 81001; 82330; 82550; 82728; 82805; 82962; 83605; 83615; 83735; 83880; 84100; 84145; 84484; 85007; 85025; 85378; 85384; 85610; 85651; 85730; 86140; 86403; 87040; 87426; 87449; 87635; 87641; 93005; 93306; 94640; 94660; 96365; 96367; 96368; 96372; 96375; 97110; 97116; 97162; 97166; 97530; 97535; 99291; J0456; J0696; J1100; J1815 ×2; J1940; J2405; J3262; J3370; J3480; J3490; J7050; J7626; Q9967

== ENCOUNTER 2021-07-05 18:09 | Outpatient (CLI) | payer MEDICARE, SELFPAY ==
[2021-07-05 20:03] LABS: Add Urine Microscopic? YES; Bilirubin Urine Neg (Negative); Blood Urine Neg (Negative); Glucose Urine UA 4+ (Normal); Ketones Urine Negative (Negative); Leukocyte Esterase Urine 1+ (Negative); Nitrate Urine Negative (Negative); Protein Urine Neg (Negative); Urine Appearance SL Hazy (CLEAR); Urine Color Yellow (Yellow); Urobilinogen Urine Norm (Negative); pH Urine 5 (5-7)
[2021-07-05 20:04] LABS: Add Urine Culture? No; Bacteria Urine 2+ /hpf; RBC Urine 0-4 /hpf (0-2); Squamous Epithelial Cell Urine 25-40 /hpf (0-5); WBC Urine 55-80 /hpf (0-5)
== END 2021-07-05 18:10 | disposition home or self-care (01) ==
PROVIDERS: PCP Internal Medicine; Visit Provider Internal Medicine
DX: R39.15 Urgency of urination (principal)
CPT/HCPCS: 81001; 87086

== ENCOUNTER 2021-07-19 17:42 | Outpatient (CLI) | payer MEDICARE, SELFPAY ==
[2021-07-19 18:17] LABS: Glucose Urine UA 1+ (Normal); Ketones Urine Negative (Negative); Protein Urine Trace (Negative); Urine Appearance SL Hazy (CLEAR); Urine Color Yellow (Yellow); pH Urine 5 (5-7)
[2021-07-19 18:18] LABS: Add Urine Microscopic? YES; Bilirubin Urine Neg (Negative); Blood Urine 2+ (Negative); Leukocyte Esterase Urine 2+ (Negative); Nitrate Urine Negative (Negative); RBC Urine 0-4 /hpf (0-2); Urobilinogen Urine Norm (Negative); WBC Urine 25-40 /hpf (0-5)
[2021-07-19 18:19] LABS: Add Urine Culture? Yes; Amorphous Sediment Urine TRACE /hpf; Bacteria Urine 1+ /hpf; Mucus Urine 2+ /hpf; Squamous Epithelial Cell Urine 0-4 /hpf (0-5); Transitional Epi Cells Urine 0-4 /hpf
== END 2021-07-19 17:43 | disposition home or self-care (01) ==
PROVIDERS: PCP Internal Medicine; Visit Provider Internal Medicine
DX: N39.0 Urinary tract infection, site not specified (principal)
CPT/HCPCS: 81001; 87077; 87086; 87186

== ENCOUNTER → 2021-10-12 17:18 | Outpatient (BNVA) | payer MEDICARE, SELFPAY | PROVIDERS: PCP Internal Medicine; Visit Provider Registered Nurse Neonatal Intensive Care | DX: N39.0 Urinary tract infection, site not specified (principal) | CPT/HCPCS: 81000 ==

== ENCOUNTER → 2021-11-04 08:43 | Outpatient (BNVA) | payer MEDICARE, SELFPAY | PROVIDERS: PCP Internal Medicine; Visit Provider Nurse Practitioner Family | DX: N39.0 Urinary tract infection, site not specified (principal) | CPT/HCPCS: 81003 ==

== ENCOUNTER → 2021-12-17 12:48 | Outpatient (BNVA) | payer MEDICARE, SELFPAY | PROVIDERS: PCP Internal Medicine; Visit Provider Urology | DX: R33.9 Retention of urine, unspecified (principal) | CPT/HCPCS: 81003 ==

== ENCOUNTER → 2022-02-25 14:45 | Outpatient (BNVA) | payer MEDICARE, SELFPAY | PROVIDERS: PCP Internal Medicine; Visit Provider Urology | DX: N30.20 Other chronic cystitis without hematuria (principal); R33.9 Retention of urine, unspecified; N39.0 Urinary tract infection, site not specified; N39.41 Urge incontinence | CPT/HCPCS: 51798; 99213 ==

== ENCOUNTER 2022-03-08 07:56 | Outpatient (CLI) | payer MEDICARE, SELFPAY ==
--- NOTE | 2022-03-08 08:15 | MR_ITS ---
WS: [id number] MRI RIGHT SHOULDER HISTORY: INTERNAL DERANGEMENT RIGHT SHOULDER COMPARISON: None available. TECHNIQUE: Multiplanar sequences of the shoulder joint are submitted. Quality of this examination is limited by body habitus and motion. Severe AC joint arthritis. Bone and soft tissue hypertrophy with encroachment upon the supraspinatus. Supraspinatus is being deformed. Moderate amount of fluid in the subacromial and subdeltoid bursa. N o definite fracture. No os acromion is identified. Biceps tendon is not identified at the bicipital g roove. Moderate narrowing of the glenohumeral joint. Osseous and labral avulsion from the anterior labrum. T here is increased T2 signal. Normal contours is not apparent on the axial T2 signal. There is also in creased signal in the subscapularis muscle extending to the tendon. The entire tendon cannot be trace d. There is a small amount of increased T2 signal also within the supraspinatus and infraspinatus mus cles adjacent to the scapula. No definite tears are identified although the quality is somewhat limit ed. Small tears would easily be missed. Suspect is probably a small insertion site tear of the supras pinatus. There is additional abnormal signal in the posterior and inferior labrum and also the glenoid. Avulsi on fracture from the glenoid measures 9 mm. Subchondral cystic changes along the posterior lateral hu meral head. Focal marrow edema in the humeral head adjacent to the labrum. MR/MR shoulder RT wo con* [id number] IMPRESSION: 1. Quality of this examination is compromised by body habitus and motion. 2. Severe AC joint arthritis with encroachment upon the supraspinatus. 3. Abnormal signal in the humeral head and glenoid probably from recent trauma . 4. Soft tissue and bony avulsion of the anterior labrum. 5. Abnormal posterior labrum. Acute injury with involvement of the labrum and glenoid. Labral tear with fracture involving the posterior labrum. Avulsion fra cture measures 9 mm from the posterior glenoid. 6. Moderate subacromial and subdeltoid bursal fluid. 7. Abnormal T2 signal in the subscapularis tendon. Subscapularis tendon appear s torn and retracted. 8. Biceps tendon not identified in the bicipital groove. 9. Soft tissue edema surrounding the scapula and the rotator cuff muscles.
== END 2022-03-08 07:57 | disposition home or self-care (01) ==
PROVIDERS: PCP Internal Medicine; Visit Provider Internal Medicine
DX: M24.811 Other specific joint derangements of right shoulder, not elsewhere classified (principal)
CPT/HCPCS: 73221

== ENCOUNTER → 2022-03-25 09:51 | Outpatient (BNVA) | payer MEDICARE, SELFPAY | PROVIDERS: PCP Internal Medicine; Visit Provider Orthopaedic Surgery | DX: S49.91XA Unspecified injury of right shoulder and upper arm, initial encounter (principal); W19.XXXA Unspecified fall, initial encounter | CPT/HCPCS: 99202 ==

== ENCOUNTER 2022-03-31 10:18 | Outpatient (RCR) | payer MEDICARE, SELFPAY | END 2022-04-20 23:59 | disposition home or self-care (01) | LOC: SPT 10:18 | PROVIDERS: PCP Internal Medicine; Referring Provider Orthopaedic Surgery; Visit Provider Orthopaedic Surgery | DX: S42.101A Fracture of unspecified part of scapula, right shoulder, initial encounter for closed fracture (principal); X58.XXXA Exposure to other specified factors, initial encounter | CPT/HCPCS: 97110; 97162 ==

== ENCOUNTER 2022-04-21 06:00 | Outpatient (RCR) | payer MEDICARE, SELFPAY | END 2022-05-06 14:49 | disposition home or self-care (01) | LOC: SPT 06:00 | PROVIDERS: PCP Internal Medicine; Referring Provider Orthopaedic Surgery; Visit Provider Orthopaedic Surgery | DX: Z47.89 Encounter for other orthopedic aftercare (principal); S42.101D Fracture of unspecified part of scapula, right shoulder, subsequent encounter for fracture with routine healing; X58.XXXD Exposure to other specified factors, subsequent encounter | CPT/HCPCS: 97110 ==

== ENCOUNTER → 2022-06-10 13:57 | Outpatient (BNVA) | payer MEDICARE, SELFPAY | PROVIDERS: PCP Internal Medicine; Visit Provider Otolaryngology | DX: K13.0 Diseases of lips (principal) | CPT/HCPCS: 99203 ==

== ENCOUNTER → 2022-06-12 12:46 | Outpatient (BNVA) | payer MEDICARE, SELFPAY | PROVIDERS: PCP Internal Medicine; Visit Provider Urology | DX: N30.20 Other chronic cystitis without hematuria (principal); R33.9 Retention of urine, unspecified; N39.41 Urge incontinence; Z74.09 Other reduced mobility | CPT/HCPCS: 51701; 51798; 99213 ==

== ENCOUNTER → 2022-06-16 09:18 | Outpatient (BNVA) | payer MEDICARE, SELFPAY | PROVIDERS: PCP Internal Medicine; Visit Provider Nurse Practitioner Family | DX: N30.20 Other chronic cystitis without hematuria (principal); R33.9 Retention of urine, unspecified; N39.41 Urge incontinence; Z74.09 Other reduced mobility | CPT/HCPCS: 81003 ==

== ENCOUNTER 2022-06-26 12:14 | Day surgery (SDC) | payer MEDICARE, SELFPAY ==
[2022-06-25 15:59] VITALS: BMI 56.7
[2022-06-26] VITALS (10 sets, daily range): BP systolic 136–184; BP diastolic 65–82; PULSE 85–94; RESP 16–146; TEMP 36.9; O2SAT 92–98
[2022-06-26 13:06] LABS: Glucose Point of Care 115 mg/dL (70-110)
[2022-06-26] MEDS: sodium chloride 0.9% 1,000 ML 30 ML IV (13:06)
--- NOTE | 2022-06-26 14:06 | W.PM.OPSUD ---
Surgery/Procedure H&P Update DATE OF PROCEDURE: June 26, 2022 DATE H&P PERFORMED: 06/10/22 H&P UPDATE INFORMATION: I have reviewed H&P completed within last 30 days, I have examined patient prior to procedure and No changes to prior documentation CHANGES TO PREVIOUS DOCUMENTATION: No changes PREOP DIAGNOSIS: Upper lip lesion PRIMARY INDICATION FOR PROCEDURE: Excision of upper lip lesion with closure PLANNED PROCEDURE: Operation Date: 06/26/22 13:45 Proposed Procedures p Excision of upper lip lesion under local anesthesia 81928,K13.0(Not Applicable) - Albin Gant MD
[2022-06-26] MEDS: ceFAZolin 2,000 MG in sodium chloride 0.9% (plus) 50 ML 100 MG IV (14:35)
[2022-06-26] MEDS: neomycin-poly-bacitracin oint 28 gm 1 APPLIC TOPICAL (14:51)
--- NOTE | 2022-06-26 14:52 | SUR.OPER ---
1444 3.4ml 2% lidociane with epi 1:100,[address] puentes in the upper lip.
--- NOTE | 2022-06-26 15:11 | P.OP_ITS ---
Operative Report Date of procedure: June 26, 2022 Pre-op diagnosis: Preop Diagnosis Upper lip lesion Post-op diagnosis: Central upper lip lesion Post-op findings: Same Procedure done: Excision of central upper lip lesion extending from skin across vermilion border onto the vermilion of the upper lip. Implants: No implants Specimens removed/disposition: Specimen forwarded to pathology for permanent section only. Pathology: Same Surgeon: Albin Gant MD Anesthesia: Local Estimated blood loss: 5 mL Complications: No complications encountered Findings: 71-year-old female patient has had a lesion develop on her central upper lip t hat has bled repeatedly. She traumatizes it by accidentally touching it and rubbing it and it bleeds. It is getting bigger. Therefore she is being brought to the operating room at this time to undergo excision under local anesthesia. The procedure its risks and complications were explained in detail. Informed consent was granted and witnessed. Risks included bleeding infection numbness scarring swelling bruising recurrence need for additional treatment and allergic reaction. Brief History: 71-year-old female patient with lesion of central upper lip recurrent and intermittently bleeds. Here to undergo excision under local anesthesia in the operating room. Procedure: Description of procedure: Patient was placed on the operating table in the supine position. She was repositioned into a semirecumbent position for comfort. Her upper lip was cleansed with alcohol. Then a total of 3.4 mL of 2% Xylocaine with 1-100,000 epinephrine was utilized to infiltrate the upper lip. Several minutes were allowed to pass and then the area was prepped and draped in usual fashion. A timeout was accomplished identifying the patient date of plan procedure allergies fire risk and medications given. With all in agreement the procedure continued. A fusiform excision pattern was outlined with the apex in a vertical direction. The length of the incision was 1.5 cm x 1 cm. The incision was created with a 15 blade carrying it down to the subcutaneous and submucosal glands. Then the specimen was forwarded for permanent section diagnosis. The incision was closed in a single layer using interrupted 5-0 nylon sutures. A total of 6 were used. Bleeding was controlled. Pressure was applied for several minutes. With no bleeding evident the area was cleansed. Neosporin ointment was applied and this was covered with a sterile Band-Aid. Patient tolerated the procedure well had an estimated blood loss of 5 mL or less and arrived in day surgery in stable condition.
== END 2022-06-26 15:30 | disposition home or self-care (01) ==
PROVIDERS: PCP Internal Medicine; Visit Provider Otolaryngology
PROC: (CPT 11440; principal; 2022-06-26 13:35)
DX: L98.0 Pyogenic granuloma (principal); I10 Essential (primary) hypertension; M81.0 Age-related osteoporosis without current pathological fracture; E11.9 Type 2 diabetes mellitus without complications
CPT/HCPCS: 11440; 36416; 82962; 88305; J7030

== ENCOUNTER → 2022-07-04 11:14 | Outpatient (BNVA) | payer MEDICARE, SELFPAY | PROVIDERS: PCP Internal Medicine; Visit Provider Otolaryngology | DX: Z48.89 Encounter for other specified surgical aftercare (principal); L98.0 Pyogenic granuloma | CPT/HCPCS: 99024 ==

== ENCOUNTER → 2022-07-28 12:46 | Day surgery (SDC) | payer MEDICARE, SELFPAY ==
[2022-07-28 13:02] VITALS: BP 145/64; PULSE 78; RESP 18; TEMP 36.4; O2SAT 93
[2022-07-28] MEDS: iron sucrose 200 MG in sodium chloride 0.9% (100 ml) 100 ML 220 MG IV (13:11)
== END ==
PROVIDERS: PCP Internal Medicine; Visit Provider Internal Medicine
DX: D50.9 Iron deficiency anemia, unspecified (principal)
CPT/HCPCS: 96365; J1756

== ENCOUNTER → 2022-08-05 11:47 | Day surgery (SDC) | payer MEDICARE, SELFPAY ==
[2022-08-05] MEDS: iron sucrose 200 MG in sodium chloride 0.9% (100 ml) 100 ML 220 MG IV (12:15)
[2022-08-05 12:26] VITALS: BP 156/102; PULSE 80; RESP 18; TEMP 36.3; O2SAT 98
== END ==
PROVIDERS: PCP Internal Medicine; Visit Provider Internal Medicine
DX: D50.9 Iron deficiency anemia, unspecified (principal)
CPT/HCPCS: 96365; J1756

== ENCOUNTER → 2022-08-11 12:45 | Day surgery (SDC) | payer MEDICARE, SELFPAY ==
[2022-08-11 13:10] VITALS: BP 138/58; PULSE 71; RESP 18; TEMP 36.7; O2SAT 93
[2022-08-11] MEDS: iron sucrose 200 MG in sodium chloride 0.9% (100 ml) 100 ML 220 MG IV (13:25)
== END ==
PROVIDERS: PCP Internal Medicine; Visit Provider Internal Medicine
DX: D50.9 Iron deficiency anemia, unspecified (principal)
CPT/HCPCS: 96365; J1756

== ENCOUNTER → 2022-08-19 11:36 | Day surgery (SDC) | payer MEDICARE, SELFPAY ==
[2022-08-19 11:51] VITALS: BP 122/71; PULSE 80; RESP 18; TEMP 36.6; O2SAT 94
[2022-08-19] MEDS: iron sucrose 200 MG in sodium chloride 0.9% (100 ml) 100 ML 220 MG IV (11:59)
== END ==
PROVIDERS: PCP Internal Medicine; Visit Provider Internal Medicine
DX: D50.9 Iron deficiency anemia, unspecified (principal)
CPT/HCPCS: 96365; J1756

== ENCOUNTER → 2022-08-26 11:27 | Day surgery (SDC) | payer MEDICARE, SELFPAY ==
[2022-08-26] MEDS: iron sucrose 200 MG in sodium chloride 0.9% (100 ml) 100 ML 220 MG IV (11:46)
[2022-08-26 11:51] VITALS: BP 139/70; PULSE 78; RESP 18; TEMP 36.5; O2SAT 91
== END ==
PROVIDERS: PCP Internal Medicine; Visit Provider Internal Medicine
DX: D50.9 Iron deficiency anemia, unspecified (principal)
CPT/HCPCS: 96365; J1756

== ENCOUNTER → 2022-09-01 14:14 | Outpatient (BNVA) | payer MEDICARE, SELFPAY | PROVIDERS: PCP Internal Medicine; Visit Provider Urology | DX: N30.20 Other chronic cystitis without hematuria (principal); N39.41 Urge incontinence; R35.89 Other polyuria; Z74.09 Other reduced mobility; R33.9 Retention of urine, unspecified | CPT/HCPCS: 51798; 81003; 99213 ==

== ENCOUNTER → 2023-03-02 10:41 | Outpatient (BNVA) | payer MEDICARE, SELFPAY | PROVIDERS: PCP Internal Medicine; Visit Provider Urology | DX: R33.9 Retention of urine, unspecified; N30.20 Other chronic cystitis without hematuria; N39.41 Urge incontinence; E66.01 Morbid (severe) obesity due to excess calories; R35.89 Other polyuria; Z74.09 Other reduced mobility; Z90.49 Acquired absence of other specified parts of digestive tract | CPT/HCPCS: 51798; 81003; 99213 ==

== ENCOUNTER 2023-03-31 17:02 | Emergency (ER) | payer MEDICARE, SELFPAY ==
[2023-03-31 17:07] VITALS: BMI 59.5
[2023-03-31 17:11] VITALS: BP 144/72; PULSE 70; RESP 18; O2SAT 92
--- NOTE | 2023-03-31 17:11 | XRR_ITS ---
PROCEDURE INFORMATION: Exam: XR Right Knee Exam date and time: 03/31/2023 5:23 PM Age: 72 years old Clinical indication: Pain; Knee; Right TECHNIQUE: Imaging protocol: Radiologic exam of the right knee. Views: 3 views. COMPARISON: No relevant prior studies available. FINDINGS: Bones/joints: Knee arthroplasty changes in place. Soft tissues: Small to moderate joint effusion. XR/XR knee RT 3V* [id number] IMPRESSION: 1. Knee arthroplasty changes in place. 2. Small to moderate joint effusion.
--- NOTE | 2023-03-31 17:11 | XRR_ITS ---
PROCEDURE INFORMATION: Exam: XR Right Foot Exam date and time: 03/31/2023 5:26 PM Age: 72 years old Clinical indication: Pain; Foot; Right TECHNIQUE: Imaging protocol: Radiologic exam of the right foot. Views: 3 or more views. COMPARISON: CR (LOW EXM, ) 03/31/2023 5:24 PM FINDINGS: Bones/joints: Calcified heel spur. Fifth metatarsal lateral base cortical defect suggestive of a fracture, best seen on the oblique and AP view, potentially chronic, please correlate clinically. Soft tissues: Normal. XR/XR foot RT min 3V* [id number] IMPRESSION: 1. Calcified heel spur. 2. Fifth metatarsal lateral base cortical defect suggestive of a fracture, best seen on the oblique and AP view, potentially chronic, please correlate clinically.
--- NOTE | 2023-03-31 17:11 | XRR_ITS ---
PROCEDURE INFORMATION: Exam: XR Left Knee Exam date and time: 03/31/2023 5:16 PM Age: 72 years old Clinical indication: Pain; Knee; Left; Additional info: Pain, fall TECHNIQUE: Imaging protocol: Radiologic exam of the left knee. Views: 3 views. COMPARISON: CR XR knee LT 3V* [id number] 03/15/2020 2:35 PM FINDINGS: Bones/joints: Knee arthroplasty changes in place. Chronic soft tissue calcification seen along the superolateral aspect of the femoral arthroplasty component. Soft tissues: Soft tissue prominence about the knee. XR/XR knee LT 3V* [id number] IMPRESSION: 1. Knee arthroplasty changes in place. 2. Chronic soft tissue calcification seen along the superolateral aspect of the femoral arthroplasty component. 3. Soft tissue prominence about the knee.
--- NOTE | 2023-03-31 17:11 | XRR_ITS ---
PROCEDURE INFORMATION: Exam: XR Right Ankle Exam date and time: 03/31/2023 5:24 PM Age: 72 years old Clinical indication: Pain; Ankle; Right TECHNIQUE: Imaging protocol: Radiologic exam of the right ankle. Views: 3 or more views. COMPARISON: CR (LOW EXM, ) 03/31/2023 5:23 PM FINDINGS: Bones/joints: Calcified heel spur. Soft tissues: Soft tissue swelling about the ankle. XR/XR ankle RT min 3V* [id number] IMPRESSION: 1. Negative for acute bony abnormality. 2. Calcified heel spur. 3. Soft tissue swelling about the ankle.
--- NOTE | 2023-03-31 17:14 | ED_ITS ---
HPI - Fall General: Chief Complaint: Fall Stated Complaint: fall Time Seen by Provider: 03/31/23 17:03 Source: patient Mode of arrival: ambulatory History of Present Illness: 70-year-old female who was brought in by EMS after a fall at home. She had fallen earlier today and EMS was called they assisted her she did not feel like she had any significant injury so she declined to be transported. She fell again today she stumbled while using her walker and wearing a new pair of shoes went down landed both her knees. She did not strike her head she did not lose consciousness a few hours later her right knee and ankle began to hurt more to the point where she could not get up and EMS was called and she was transported to the emergency room this time. She is not on any anticoagulants she denies any other injury MD complaint: fall Onset (ago): minute(s) Fall from: standing Loss of consciousness: None Prolonged down time: no Context: tripped/slipped Associated symptoms-after fall: Denies abdominal pain, chest pain, confusion, difficulty walking, headache(s), hematuria, lightheadedness, neck pain, numbness, short of breath, vertigo or weakness Review of Systems Const: Denies: fever(s), chills, fatigue or malaise Card: Denies: chest pain, palpitations, irregular heart rhythm or lightheadedness Resp: Denies: dyspnea, productive cough or non-productive cough GI: Denies: abdominal pain, nausea or vomiting : Denies: dysuria, urinary frequency, urinary urgency or hematuria Musc: Reports: joint pain; Denies: neck pain or back pain Skin/Breast: Denies: rash or pruritus Neuro: Denies: headache(s), difficulty walking, vertigo or confusion PFSH ED PFSH: Medical History Chronic cystitis Hx of ectopic Hypertension Metatarsal fracture Morbid obesity Osteoporosis Polyuria Recurrent UTI Thyroid disease Type 2 diabetes mellitus Urgency incontinence Surgical History H/O colonoscopy H/O endoscopy History of tonsillectomy Hx of cholecystectomy Hx of left knee surgery Hx of right knee surgery Hx of shoulder surgery Family History Father , AT AGE 64 Myocardial infarction (lateral wall) Diabetes Mother , AT AGE 76 CHF (congestive heart failure) Other CAD (coronary artery disease) Social History Smoking and tobacco status: never smoked Alcohol intake: never Substance/Drug Use: never Marital status: / Current occupational status: retired Physical Exam Const: COMMON NORMALS: no acute distress GENERAL APPEARANCE: cooperative and comfortable ORIENTATION/CONSCIOUSNESS: Yes awake, Yes oriented to person, Yes oriented to place and Yes oriented to time HENMT: COMMON NORMALS: normocephalic, atraumatic and hearing grossly normal bilaterally HEAD & SCALP: normocephalic and atraumatic Resp: COMMON NORMALS: normal respiratory effort, No retractions, No use of accessory muscles and clear to auscultation bilaterally AUSCULTATION: clear to auscultation bilaterally Cardio: COMMON NORMALS: regular rate, regular rhythm and No murmurs present (Cardio) RATE: regular rate RHYTHM: regular rhythm GI: COMMON NORMALS: Soft to palpation and No hepatosplenomegaly present AUSCULTATION: Yes normoactive bowel sounds PALPATION: Yes Soft to palpation, No Tenderness to palpation present (GI), No Guarding due to palpation present (GI) and Yes No hepatosplenomegaly present Extremity: COMMON NORMALS: normal to inspection, capillary refill normal, no clubbing, cyanosis or edema, no calf tenderness and no pedal edema Neuro: SENSORIUM/ORIENTATION: Yes oriented to person, Yes oriented to place and Yes oriented to time Skin: COMMON NORMALS: no rashes or lesions noted GENERAL SKIN EXAM: no rashes or lesions noted Course Vital Signs: Vital signs: Vital Signs Pulse Rate 69 03/31/23 19:50 Respiratory Rate 18 03/31/23 17:11 Blood Pressure 115/66 03/31/23 19:50 Pulse Oximetry 91 03/31/23 19:50 Oxygen Delivery Me thod Room Air 03/31/23 19:00 MDM - Fall Medical Decision Making Discussed level of care given her body mass index feeling she is in a very difficult time getting around should try to be nonweightbearing on the affected foot is much as possible. We will set her up for a bariatric wheelchair. Posterior splint on the leg and referral to podiatry Medical Records I reviewed the patient's medical records. Lab Data I reviewed the patient's lab results. Radiology Impressions Ankle X-Ray 03/31/23 17:11 IMPRESSION: 1. Negative for acute bony abnormality. 2. Calcified heel spur. 3. Soft tissue swelling about the ankle. Foot X-Ray 03/31/23 17:11 IMPRESSION: 1. Calcified heel spur. 2. Fifth metatarsal lateral base cortical defect suggestive of a fracture, best seen on the oblique and AP view, potentially chronic, please correlate clinically. Knee X-Ray 03/31/23 17:11 IMPRESSION: 1. Knee arthroplasty changes in place. 2. Chronic soft tissue calcification seen along the superolateral aspect of the femoral arthroplasty component. 3. Soft tissue prominence about the knee. Knee X-Ray 03/31/23 17:11 IMPRESSION: 1. Knee arthroplasty changes in place. 2. Small to moderate joint effusion. Discharge Plan Discharge Patient Disposition: Home Clinical Impression: Metatarsal stress fracture of right foot Condition: Stable Prescriptions: No Action losartan 100 mg tablet 100 mg PO DAILY atorvastatin 40 mg tablet 40 mg PO DAILY potassium chloride 20 mEq tablet extended release 20 meq PO DAILY furosemide 40 mg tablet 40 mg PO DAILY ciprofloxacin HCl 250 mg tablet 500 mg PO BID Qty: 60 4RF Myrbetriq 25 mg tablet extended release 24 hr 25 mg PO Q24H Qty: 30 12RF pioglitazone 45 mg tablet 45 mg PO QAM amlodipine 10 mg tablet 10 mg PO QAM raloxifene 60 mg tablet 60 mg PO QAM allopurinol 300 mg tablet 300 mg PO QAM esomeprazole magnesium 20 mg capsule,delayed release(DR/EC) 20 mg PO QAM duloxetine 30 mg capsule,delayed release(DR/EC) 30 mg PO QAM metoprolol tartrate 25 mg Tablet 25 mg PO BID@0900,2100 Qty: 60 0RF levothyroxine [Synthroid] 137 mcg tablet 150 mcg PO QAM hydrocodone-acetaminophen 5-300 mg tablet 1 tab PO Q4H PRN (Reason: pain) Qty: 20 0RF tramadol 50 mg tablet 50 mg PO Q6H PRN (Reason: pain) Qty: 14 0RF insulin degludec 100 unit/mL (3 mL) insulin pen 60 unit SUBCUT DAILY Qty: 3 0RF Discharge Orders: Discharge ED (Routine); Ordered 07/11/23 Ordered By: Eber Mcgarry Other Ambulatory Orders: DME: Wheelchair (Order) Location: None Selected Ordered By: Eber Mcgarry Referrals: Delmer Green DO [Primary Care Provider] - Discharge Diet: Usual diet Discharge Activity: Limit activity as instructed Patient Instructions: Opioid Safety, Pain Management Activity Restrictions/Additional Instructions: Nonweightbearing on the right foot. Case management make arrangements for you to follow-up with podiatry. Follow-up with your primary care doctor for evaluation for home health or consideration of [facility] until healed Coding Level of Care Code ED Negative Checker for Adriana Rankin
[2023-03-31 18:00] VITALS: BP 130/64; PULSE 61; O2SAT 93
[2023-03-31 19:00] VITALS: BP 147/71; PULSE 69; O2SAT 90
[2023-03-31 19:50] VITALS: BP 115/66; PULSE 69; O2SAT 91
--- NOTE | 2023-04-01 08:14 | DCPLANNER ---
Addendum entered by Shelby Salgado 04/08/23 11:48: marketing project manager received the following message from the ortho clinic regarding follow up appointment: Patient states she is trying to get into a half-way and currently has no way to make an apt without using an ambulance. Pt will call back. wants to see this 04/03/23 Original Note: marketing project manager had message to schedule a follow up appointment for patient with podiatry. marketing project manager sent patients information to the front office staff at podiatry. Patients information will be printed and reviewed. Clinic will call patient with appointment information.
== END 2023-03-31 19:52 | disposition home or self-care (01) ==
PROVIDERS: Emergency Provider Family Medicine; PCP Internal Medicine
DX: S92.351A Displaced fracture of fifth metatarsal bone, right foot, initial encounter for closed fracture (principal); E11.9 Type 2 diabetes mellitus without complications; I10 Essential (primary) hypertension; E66.01 Morbid (severe) obesity due to excess calories; Z68.43 Body mass index [BMI] 50.0-59.9, adult; Z79.4 Long term (current) use of insulin; Z79.899 Other long term (current) drug therapy; W01.0XXA Fall on same level from slipping, tripping and stumbling without subsequent striking against object, initial encounter; Y92.009 Unspecified place in unspecified non-institutional (private) residence as the place of occurrence of the external cause
CPT/HCPCS: 29515; 73562; 73610; 73630; 99283

== ENCOUNTER 2023-04-01 10:55 | Emergency (ER) | payer MEDICARE, MEDICAID, SELFPAY ==
[2023-04-01 10:57] VITALS: BP 123/72; PULSE 81; RESP 18; TEMP 36.9; O2SAT 95; BMI 59.5
--- NOTE | 2023-04-01 11:16 | XRR_ITS ---
PROCEDURE INFORMATION: Exam: XR Left Foot Exam date and time: 04/01/2023 11:25 AM Age: 72 years old Clinical indication: Pain and injury or trauma; Fall; Swelling, leg or foot; Sprain or strain; Left; Additional info: Pain/swelling TECHNIQUE: Imaging protocol: Radiologic exam of the left foot. Views: 3 or more views. COMPARISON: CR XR foot LT min 3V* [id number] 10/29/2021 3:42 PM FINDINGS: Bones/joints: The bones are generally osteopenic. Plantar calcaneal spurring is noted. There is no evidence for acute displaced fracture. Soft tissues: There is diffuse subcutaneous edema incidentally noted about the distal foreleg and ankle. XR/XR foot LT min 3V* [id number] IMPRESSION: Osteopenia and calcaneal enthesopathy, soft tissue swelling, left foot.
--- NOTE | 2023-04-01 11:16 | XRR_ITS ---
PROCEDURE INFORMATION: Exam: XR Left Ankle Exam date and time: 04/01/2023 11:22 AM Age: 72 years old Clinical indication: Injury or trauma; Fall; Blunt trauma; Ankle; Left; Additional info: Pain/injury TECHNIQUE: Imaging protocol: Radiologic exam of the left ankle. Views: 3 or more views. COMPARISON: CR XR foot LT min 3V* [id number] 10/29/2021 3:42 PM FINDINGS: Bones/joints: The bones are generally osteopenic. Plantar calcaneal spurring is noted. Soft tissues: There is diffuse subcutaneous edema about the distal foreleg and ankle. XR/XR ankle LT min 3V* [id number] IMPRESSION: Osteopenia, calcaneal enthesopathy, soft tissue swelling, left ankle.
--- NOTE | 2023-04-01 11:20 | ED_ITS ---
HPI - Extremity Injury (Lower) General: Chief Complaint: Extremity Injury, Lower Stated Complaint: Fall / L foot pain Time Seen by Provider: 04/01/23 10:56 Source: patient Mode of arrival: EMS Limitations: no limitations History of Present Illness: Patient is a 72-year-old female who presents to ED today following a left foot injury. Patient states she was seen here following a fall yesterday after she had tripped wearing a new pair of shoes. She was diagnosed with a small avulsion fracture to the base of her fifth metatarsal. No other injuries sustained. She was placed in a splint and discharged home. Family states when they were helping her up from her chair she slid down and stubbed at one of her left toes. She has no other injuries noted. MD complaint: foot injury Onset (ago): hour(s) Injury: Left: foot Place: home Severity: moderate Relieving factors: nothing Exacerbating factors: weight bearing Context: fall and other (stubbed toe) Associated symptoms: Reports inability to bear weight Other symptoms: none Review of Systems Const: Denies: fever(s), chills, body aches, fatigue or malaise Card: Denies: chest pain Resp: Denies: dyspnea GI: Denies: abdominal pain, nausea, vomiting or diarrhea : Denies: flank pain, difficulty voiding, dysuria, urinary frequency, urinary urgency or urinary hesitancy Musc: Reports: extremity pain (L foot, R foot (known fracture)); Denies: neck pain, back pain, joint pain, joint swelling, joint redness or joint warmth Neuro: Denies: headache(s), numbness in extremities, weakness in extremities or sensory changes [facility] ED PFSH: Medical History Chronic cystitis Hx of ectopic Hypertension Metatarsal fracture Morbid obesity Osteoporosis Polyuria Recurrent UTI Thyroid disease Type 2 diabetes mellitus Urgency incontinence Surgical History (Reviewed 04/01/23 @ 11: by KARLI Dykes) H/O colonoscopy H/O endoscopy History of tonsillectomy Hx of cholecystectomy Hx of left knee surgery Hx of right knee surgery Hx of shoulder surgery Family History Father , AT AGE 64 Myocardial infarction (lateral wall) Diabetes Mother , AT AGE 76 CHF (congestive heart failure) Other CAD (coronary artery disease) Social History Smoking and tobacco status: never smoked Alcohol intake: never Substance/Drug Use: never Marital status: / Current occupational status: retired Physical Exam Const: COMMON NORMALS: no acute distress, patient oriented x3, no limitations and alert GENERAL APPEARANCE: cooperative NUTRITIONAL APPEARANCE: obese morbidly obese (patients BMI is almost 60) ORIENTATION/CONSCIOUSNESS: Yes awake, Yes oriented to person, Yes oriented to place and Yes oriented to time HENMT: COMMON NORMALS: normocephalic and atraumatic HEAD & SCALP: normal to inspection, normocephalic and atraumatic FACE & SINUS: normal facial exam Eye: GENERAL EYE: appearance normal, both eyes and all related structures Neck/C-Spine: COMMON NORMALS: full ROM GENERAL: Yes normal visual inspection CERVICAL SPINE: No Cervical spine tenderness Resp: COMMON NORMALS: normal respiratory effort and clear to auscultation bilaterally AUSCULTATION: clear to auscultation bilaterally Cardio: COMMON NORMALS: regular rate and regular rhythm RATE: regular rate RHYTHM: regular rhythm Back/Pelvis: COMMON NORMALS: thoracic and lumbar spine normal to inspection and no thoracic nor lumbar tenderness Extremity: GENERAL: Yes normal exam except as noted OTHER: splint noted to R LE-this was not removed; toes are warm with normal cap refill and sensation she has tenderness throught out left ankle and to left 2nd toe; hard to appreciate any swelling or subtle deformities given her morbid obesity status; NV intact Neuro: FLAKO COMA SCALE: document GCS findings [place] coma scale eye opening: Spontaneous [place] coma scale verbal response: Orientated [place] coma scale motor response: Obey commands [place] coma scale total score: 15 COMMON NORMALS: patient oriented x3, moves all extremities, no focal motor deficits and no sensory deficits noted SENSORIUM/ORIENTATION: Yes alert, Yes oriented to person, Yes oriented to place and Yes oriented to time GAIT: Yes Unable to assess gait Skin: TRAUMA: no lacerations or abrasions Course Vital Signs: Vital signs: Vital Signs Temperature 98.4 F 04/01/23 10:57 Pulse Rate 70 04/01/23 14:05 Respiratory Rate 16 04/01/23 14:05 Blood Pressure 123/72 04/01/23 13:14 Pulse Oximetry 90 04/01/23 14:05 Oxygen Delivery Me thod Room Air 04/01/23 10:57 MDM - Extremity Injury (Lower) Medical Decision Making Patient was seen here yesterday and diagnosed with a small nondisplaced base fifth metatarsal fracture. Today she returns stating she slid out of her chair and stubbed her toe. Radiology read of her x-rays are negative personal interpretation does show a small nondisplaced fracture to her left second proximal phalanx. Patient is morbidly obese with a BMI of almost 60 and states she cannot care for herself at home. Patient is wanting to go to a snf. Case management came and spoke with patient extensively on logistical and insurance constraints on sending the patient from the ED to the snf. She is actively working on this however and has faxed to [facility] although we most likely will not hear from them back today. Patient does not meet inpatient criteria for her small avulsion fracture and toe fracture. Neither one of these are going to require any form of management. Patient already has a home bariatric wheelchair ordered and is scheduled to be delivered tomorrow. We were able to get her set up with the bariatric bedside commode we will deliver this today. She is requesting the splint to her right lower leg be removed as she feels like this is restricting her ambulation. She is agreeable to wear a darco surgical shoe instead. She is requesting a refill of her insulin as there apparently has been some complication or delay in getting that mailed to her. She is requesting a small amount of pain occasions. We did discuss risk versus benefits of increasing risk for falls. Patient will require ambulance transport back to her home. Lab Data Radiology Impressions Ankle X-Ray 04/01/23 11:16 IMPRESSION: Osteopenia, calcaneal enthesopathy, soft tissue swelling, left ankle. Foot X-Ray 04/01/23 11:16 IMPRESSION: Osteopenia and calcaneal enthesopathy, soft tissue swelling, left foot. Laboratory Results POC Glucose 175 mg/dL (70-110) H 04/01/23 11:42 Discharge Plan Discharge Patient Disposition: Home Clinical Impression: Fracture of left toe Qualifiers: Encounter type: initial encounter Toe: lesser toe Fracture type: closed Phalanx: proximal Fracture alignment: nondisplaced Qualified Code(s): S92.515A - Nondisplaced fracture of proximal phalanx of left lesser toe(s), initial encounter for closed fracture Closed nondisplaced fracture of fifth right metatarsal bone Qualifiers: Encounter type: subsequent encounter Fracture healing: with routine healing Qualified Code(s): S92.354D - Nondisplaced fracture of fifth metatarsal bone, right foot, subsequent encounter for fracture with routine healing Condition: Stable Prescriptions: New tramadol 50 mg tablet 50 mg PO Q6H PRN (Reason: pain) Qty: 14 0RF Changed insulin degludec 100 unit/mL (3 mL) insulin pen 60 unit SUBCUT DAILY Qty: 3 0RF No Action losartan 100 mg tablet 100 mg PO DAILY atorvastatin 40 mg tablet 40 mg PO DAILY potassium chloride 20 mEq tablet extended release 20 meq PO DAILY furosemide 40 mg tablet 40 mg PO DAILY ciprofloxacin HCl 250 mg tablet 500 mg PO BID Qty: 60 4RF Myrbetriq 25 mg tablet extended release 24 hr 25 mg PO Q24H Qty: 30 12RF pioglitazone 45 mg tablet 45 mg PO QAM amlodipine 10 mg tablet 10 mg PO QAM raloxifene 60 mg tablet 60 mg PO QAM allopurinol 300 mg tablet 300 mg PO QAM esomeprazole magnesium 20 mg capsule,delayed release(DR/EC) 20 mg PO QAM duloxetine 30 mg capsule,delayed release(DR/EC) 30 mg PO QAM metoprolol tartrate 25 mg Tablet 25 mg PO BID@0900,2100 Qty: 60 0RF levothyroxine [Synthroid] 137 mcg tablet 150 mcg PO QAM hydrocodone-acetaminophen 5-300 mg tablet 1 tab PO Q4H PRN (Reason: pain) Qty: 20 0RF Discharge Orders: Discharge ED (Routine); Ordered 04/01/23 Ordered By: Priscila Meneses Referrals: Delmer Green DO [Primary Care Provider] - Activity Restrictions/Additional Instructions: As we discussed home will deliver her bariatric bedside commode today to her home. You can pay for this upon arrival. Her bariatric wheelchair is scheduled to arrive tomorrow and home should deliver this as well. Orthopedic department has already reached out to you in regards to her follow-up appointment. You may call them back to schedule this follow-up visit or patient can follow-up with your primary care provider as we discussed. She has been given a prescription for pain medications as well as 1 syringe of her insulin as you stated she is out of this and there seems to be some delay in getting it mailed. Case management is actively working on snf placement. They will be in touch with patient/family with further information in regards to this. Coding Level of Care Code ED Molecular Biology Director for Adriana Rankin
[2023-04-01 11:45] LABS: Glucose Point of Care 175 mg/dL (70-110)
[2023-04-01 13:14] VITALS: BP 123/72; RESP 16; O2SAT 90
--- NOTE | 2023-04-01 13:38 | DCPLANNER ---
Addendum entered by Shelby Salgado 04/06/23 15:08: Patient called dependency case manager stating that she is not going to go into the halfway, that she is going to stay home. Addendum entered by Shelby Salgado 04/02/23 09:50: Late entry - [facility] called dependency case manager back, stating they would not be able to accept patient at this time. administrative assistant office manager called [facility], faxed paperwork for it to be reviewed. administrative assistant office manager updated ER physician, and patient. Original Note: administrative assistant office manager was asked to speak with patient about possible halfway placement. Case spoke with patient, she expressed that she would like to go to a halfway, she would like to go to [facility]. administrative assistant office manager called [facility], was told to fax patients information. It will be reviewed, and facility will call patient. administrative assistant office manager updated patient, ER physician and patients nurse that paperwork had been faxed to [facility] for review.
[2023-04-01 14:05] VITALS: PULSE 70; RESP 16; O2SAT 90
[2023-04-01 15:46] VITALS: BP 123/72; PULSE 70; RESP 16; TEMP 36.9; O2SAT 90
== END 2023-04-01 15:47 | disposition home or self-care (01) ==
PROVIDERS: Emergency Provider Physician Assistant; PCP Internal Medicine
DX: S92.515A Nondisplaced fracture of proximal phalanx of left lesser toe(s), initial encounter for closed fracture (principal); M79.89 Other specified soft tissue disorders; M79.672 Pain in left foot; W19.XXXA Unspecified fall, initial encounter
CPT/HCPCS: 36416; 73610; 73630; 82962; 99283

== ENCOUNTER → 2023-04-27 12:51 | Outpatient (BNVA) | payer MEDICARE, MEDICAID, SELFPAY | PROVIDERS: PCP Internal Medicine; Referring Provider Internal Medicine; Visit Provider Dermatology | DX: L81.4 Other melanin hyperpigmentation (principal); D69.2 Other nonthrombocytopenic purpura; L57.0 Actinic keratosis; L70.8 Other acne; B07.8 Other viral warts; L57.8 Other skin changes due to chronic exposure to nonionizing radiation | CPT/HCPCS: 17000; 17003; 17110; 99203 ==

== ENCOUNTER → 2023-06-02 14:16 | Outpatient (BNVA) | payer MEDICARE, MEDICAID, SELFPAY | PROVIDERS: PCP Internal Medicine; Visit Provider Podiatrist Foot & Ankle Surgery | DX: S92.354D Nondisplaced fracture of fifth metatarsal bone, right foot, subsequent encounter for fracture with routine healing; X58.XXXD Exposure to other specified factors, subsequent encounter | CPT/HCPCS: 73630; 99203 ==

== ENCOUNTER → 2023-06-30 13:39 | Outpatient (BNVA) | payer MEDICARE, MEDICAID, SELFPAY | PROVIDERS: PCP Internal Medicine; Visit Provider Podiatrist Foot & Ankle Surgery | DX: S92.354D Nondisplaced fracture of fifth metatarsal bone, right foot, subsequent encounter for fracture with routine healing (principal); X58.XXXD Exposure to other specified factors, subsequent encounter; E11.42 Type 2 diabetes mellitus with diabetic polyneuropathy; M21.611 Bunion of right foot; M21.612 Bunion of left foot; M21.41 Flat foot [pes planus] (acquired), right foot; M21.42 Flat foot [pes planus] (acquired), left foot; Z79.4 Long term (current) use of insulin | CPT/HCPCS: 73630; 99213 ==

== ENCOUNTER 2023-12-16 12:39 | Outpatient (CLI) | payer MEDICARE, SELFPAY ==
--- NOTE | 2023-12-16 12:44 | XR_ITS ---
WS: [id number] SCREENING DEXA SCAN Xand CLINICAL INFORMATION: Post menopausal COMPARISON: 2018 FINDINGS: The L1-L4 bone mineral density measures 1.097 g/cm2. This corresponds to a T score score of -0.7 and Z score of -0.1. Left femoral neck bone mineral density measures 0.805 g/cm2. This corresponds to a T score of -1.6 an d Z score of -0.8. Right femoral neck bone mineral density measures 0.851 g/cm2. This corresponds to a T score -1.2of an d Z score of -0.4. Mean femoral neck bone mineral density measures 0.828 g/cm2. This corresponds to a T score of -1.4 an d Z score of -0.6. IMPRESSION: Normal bone mineralization lumbar spine. Osteopenia femoral necks. Patient's FRAX calculated 10 year probability for major osteoporotic fracture is 21.0% and osteoporot ic hip fracture is 4.8%. Bone mineral density lumbar spine increased 4.9% Bone mineral density femoral necks decreased -6.5%
--- NOTE | 2023-12-16 13:07 | MM_ITS ---
WS: [id number] BILATERAL 3D TOMOSYNTHESIS DIGITAL SCREENING MAMMOGRAPHY WITH CAD CLINICAL INFORMATION: SCREEN HISTORY: Screening mammogram. No current complaints. COMPARISON: 2019 TECHNIQUE: Bilateral CC and MLO views. FINDINGS: Scattered fibroglandular densities bilaterally. No suspicious focal mass, asymmetry, calcifications, or architectural distortion. No evidence of malignancy. Incidental punctate and lucent centered calci fications. Stable cluster calcifications bilaterally. Stereotactic biopsy marker RIGHT breast. IMPRESSION: MM/[place] [id number] BI-RADS: 2-Benign FOLLOW UP: 1 Year Follow-up Recommend return to annual screening mammography.
== END 2023-12-16 12:40 | disposition home or self-care (01) ==
LOC: RAD 12:40
PROVIDERS: PCP Internal Medicine; Visit Provider Internal Medicine
DX: Z78.0 Asymptomatic menopausal state (principal); Z12.31 Encounter for screening mammogram for malignant neoplasm of breast; M85.89 Other specified disorders of bone density and structure, multiple sites
CPT/HCPCS: 77063; 77067; 77080

== ENCOUNTER 2024-02-02 15:41 | Emergency (ER) | payer MEDICARE, MEDICAID, SELFPAY ==
[2024-02-02 15:43] VITALS: BP 166/66; PULSE 71; RESP 18; TEMP 36.6; O2SAT 92; BMI 62.3
--- NOTE | 2024-02-02 15:46 | XRR_ITS ---
PROCEDURE INFORMATION: Exam: XR Left Tibia and Fibula Exam date and time: 02/02/2024 3:56 PM Age: 73 years old Clinical indication: Lower leg; Prior surgery; Surgery date: 6+ months; Surgery type: Lt knee; Patient HX: 73-year-old female who states that she has been having some left leg pains increase last 3 to 4 days pains from her knee down to her ankle she had some slight swelling to that leg as well. She denies any known injuries rates the pain a 4 out of 10 TECHNIQUE: Imaging protocol: Radiologic exam of the left tibia and fibula. Views: 2 views. COMPARISON: CR XR ankle LT min 3V* [id number] 02/02/2024 15:54 FINDINGS: Bones/joints: Partially imaged left knee prosthesis. The left tibia and fibula are intact. No fracture. Mild chronic degenerative changes at the tibiotalar joint space. Soft tissues: Edema in the soft tissues of the left lower leg and foot. No gas in the soft tissues. XR/XR tibia fibula LT 2V [id number] IMPRESSION: No evidence of an acute left tib-fib abnormality. Diffuse edema throughout the soft tissues of the left lower leg and foot. No gas in the soft tissues.
--- NOTE | 2024-02-02 15:46 | USR_ITS ---
PROCEDURE INFORMATION: Exam: US Duplex Left Lower Extremity Veins, Limited Exam date and time: 02/02/2024 4:48 PM Age: 73 years old Clinical indication: Pain; Leg, lower; Left; Additional info: Leg pain TECHNIQUE: Imaging protocol: Real-time duplex ultrasound of the left extremity with 2-D salas scale, color Doppler flow and spectral waveform analysis including responses to compression and other maneuvers (when performed) with image documentation. Limited exam focused on the left lower extremity veins. COMPARISON: CR XR tibia fibula LT 2V [id number] 02/02/2024 15:56 FINDINGS: Left deep veins: Unremarkable. The common femoral, femoral, proximal profunda femoral and popliteal veins are patent without thrombus. Normal Doppler waveforms. Normal compressibility and/or augmentation response. Superficial veins: Greater saphenous vein at the saphenofemoral junction is patent without thrombus. Soft tissues: Unremarkable. US/[place] [id number] IMPRESSION: No evidence of deep vein thrombosis.
--- NOTE | 2024-02-02 15:47 | XRR_ITS ---
PROCEDURE INFORMATION: Exam: XR Left Ankle Exam date and time: 02/02/2024 3:54 PM Age: 73 years old Clinical indication: Patient HX: 73-year-old female who states that she has been having some left leg pains increase last 3 to 4 days pains from her knee down to her ankle she had some slight swelling to that leg as well. She denies any known injuries rates the pain a 4 out of 10; Additional info: Injury TECHNIQUE: Imaging protocol: Radiologic exam of the left ankle. Views: 3 or more views. COMPARISON: CR XR ankle LT min 3V* [id number] 08/27/2023 11:22 FINDINGS: Bones/joints: Stable chronic degenerative changes at the left tibiotalar joint space. No evidence of a left ankle fracture. Stable plantar calcaneal bone spurring. Soft tissues: Diffuse edema in the soft tissues surrounding the left ankle and foot. No gas in the soft tissues. XR/XR ankle LT min 3V* [id number] IMPRESSION: Edema throughout the soft tissues of the left ankle and foot. No associated gas in the soft tissues
--- NOTE | 2024-02-02 15:52 | ED_ITS ---
HPI - Extremity Problem 2 General: Chief complaint: Extremity Problem,Nontraumatic Stated complaint: Lower leg edema Time Seen by Provider: 02/02/24 15:42 Source: patient and EMS Mode of arrival: EMS Limitations: no limitations History of Present Illness: 73-year-old female who states that she h as been having some left leg pains increase last 3 to 4 days pains from her knee down to her ankle she had some slight swelling to that leg as well. She denies any known injuries rates the pain a 4 out of 10 Associated symptoms: Deny chest pain, fever(s) or rash Review of Systems 2 Const: Denies: fever(s), chills, body aches or change in appetite ENMT: Denies: throat pain or dental pain Card: Denies: chest pain Resp: Denies: dyspnea GI: Denies: abdominal pain, nausea, vomiting or diarrhea Musc: Reports: extremity pain and extremity swelling; Denies: neck pain or back pain Skin/Breast: Denies: rash Neuro: Denies: headache(s) PFSH ED 2 PFSH: Medical History Metatarsal fracture Polyuria Morbid obesity Chronic cystitis Urgency incontinence Thyroid disease Hx of ectopic Recurrent UTI Osteoporosis Hypertension Type 2 diabetes mellitus Surgical History H/O colonoscopy H/O endoscopy History of tonsillectomy Hx of shoulder surgery Hx of cholecystectomy Hx of left knee surgery Hx of right knee surgery Family History Father , AT AGE 64 Myocardial infarction (lateral wall) Diabetes Mother , AT AGE 76 Congestive heart failure (CHF) Other CAD (coronary artery disease) Social History Smoking and tobacco/nicotine status: never used tobacco/nicotine Alcohol intake: never Substance/Drug Use: never Marital status: / Current occupational status: retired Physical Exam 2 Const: COMMON NORMALS: no acute distress, patient oriented x3 and healthy appearing HENMT: COMMON NORMALS: normocephalic and atraumatic HEAD & SCALP: n ormocephalic and atraumatic Neck/C-Spine: COMMON NORMALS: full ROM and supple Chest: COMMONS NORMALS: normal inspection of the chest Resp: COMMON NORMALS: normal respiratory effort, No retractions, No use of accessory muscles and clear to auscultation bilaterally AUSCULTATION: clear to auscultation bilaterally Cardio: COMMON NORMALS: regular rate RATE: regular rate Extremity: COMMON NORMALS: full ROM NARRATIVE EXTREMITY EXAM: Slight swelling noted to the left lower leg no erythema distal pulses intact Neuro: COMMON NORMALS: patient oriented x3, moves all extremities and no focal motor deficits Psych: COMMON NORMALS: mental status grossly normal, Normal thought process present and cooperative THOUGHT PROCESS: Normal thought process present Skin: COMMON NORMALS: no rashes or lesions noted and no wounds GENERAL SKIN EXAM: no rashes or lesions noted Course 2 Vital Signs: Vital signs: Vital Signs Temperature 97.8 F 02/02/24 15:43 Pulse Rate 61 02/02/24 17:34 Respiratory Rate 18 02/02/24 17:34 Blood Pressure 145/64 02/02/24 17:34 Pulse Oximetry 98 02/02/24 17:34 Oxygen Delivery Me thod Room Air 02/02/24 16:20 MDM - Extremity (Nontraumatic) Medical Decision Making Patient presents here with some leg edema along with pain she has no signs of DVT did give her Lasix blood work here is normal is no signs of severe CHF exacerbation she is stable for discharge follow-up PCP return if worsening. Medical Records I reviewed the patient's medical records. Lab Data I reviewed the patient's lab results. 02/02/24 15:55 02/02/24 15:55 Radiology Impressions Tibia/Fibula X-Ray 02/02/24 15:46 IMPRESSION: No evidence of an acute left tib-fib abnormality. Diffuse edema throughout the soft tissues of the left lower leg and foot. No gas in the soft tissues. Venous Duplex 02/02/24 15:46 IMPRESSION: No evidence of deep vein thrombosis. Ankle X-Ray 02/02/24 15:47 IMPRESSION: Edema throughout the soft tissues of the left ankle and foot. No associated gas in the soft tissues Laboratory Results WBC 8.66 10^3/uL (3.29-11.43) 02/02/24 15:55 RBC 4.75 10^6/uL (3.85-5.65) 02/02/24 15:55 Hgb 13.40 g/dL (11.27-16.99) 02/02/24 15:55 Hct 43.5 % (36-47) 02/02/24 15:55 MCV 91.6 fl (85-98) 02/02/24 15:55 MCH 28.2 pg (27-33) 02/02/24 15:55 MCHC 30.8 g/dL (30-55) 02/02/24 15:55 RDW 14.1 % (12.1-15.1) 02/02/24 15:55 Plt Count 339 10^3/cmm (157-399) 02/02/24 15:55 MPV 10.1 fL (7.4-10.4) 02/02/24 15:55 Neut % (Auto) 62.3 % 02/02/24 15:55 Lymph % (Auto) 21.4 % 02/02/24 15:55 [place] % (Auto) 10.7 % 02/02/24 15:55 Eos % (Auto) 3.5 % 02/02/24 15:55 Baso % (Auto) 0.8 % 02/02/24 15:55 Neut # (Auto) 5.40 10^3/uL (1.8-7.7) 02/02/24 15:55 Lymph # (Auto) 1.9 10^3/uL (0.8-4.8) 02/02/24 15:55 [place] # (Auto) 0.9 10^3/uL (0.2-0.9) 02/02/24 15:55 Eos # (Auto) 0.3 10^3/uL (0.0-0.8) 02/02/24 15:55 Baso # (Auto) 0.1 10^3/uL (0.0-0.1) 02/02/24 15:55 Nucleated RBC % (auto) 0 % 02/02/24 15:55 Nucleated RBCs # 0.0 /100WBC 02/02/24 15:55 Sodium 141 mmol/L (136-145) 02/02/24 15:55 Potassium 4.0 mmol/L (3.5-5.1) 02/02/24 15:55 Chloride 102 mmol/L (98-107) 02/02/24 15:55 Carbon Dioxide 28 mmol/L (22-29) 02/02/24 15:55 Anion Gap 15.0 (5-19) 02/02/24 15:55 BUN 25 mg/dL (8-23) H 02/02/24 15:55 Creatinine 0.8 mg/dL (0.5-0.9) 02/02/24 15:55 GFR Calculation Not Reportable 02/02/24 15:55 Glucose 177 mg/dL (65-115) H 02/02/24 15:55 Calculated Osmolality 301 mOsm/kg (285-295) H 02/02/24 15:55 Calcium 8.3 mg/dL (8.5-10.5) L 02/02/24 15:55 Total Bilirubin 0.7 mg/dL (0.15-1.2) 02/02/24 15:55 AST 12 U/L (0-32) 02/02/24 15:55 ALT 10 U/L (0-33) 02/02/24 15:55 Alkaline Phosphatase 138 U/L (35-105) H 02/02/24 15:55 NT-Pro-B Natriuret Pep 118 pg/mL (0-125) 02/02/24 15:55 Total Protein 6.4 g/dL (6.6-8.7) L 02/02/24 15:55 Albumin 3.5 g/dL (3.5-5.2) 02/02/24 15:55 Globulin 2.9 g/dL (1.3-4.6) 02/02/24 15:55 All radiology interpretation(s) finalized by discharge Discharge Plan Discharge Patient Disposition: Home Clinical Impression: Lower extremity edema, Left leg pain Condition: Stable Prescriptions: No Action losartan 100 mg tablet 100 mg PO DAILY atorvastatin 40 mg tablet 40 mg PO DAILY potassium chloride 20 mEq tablet extended release 20 meq PO DAILY furosemide 40 mg tablet 40 mg PO DAILY ciprofloxacin HCl 250 mg tablet 500 mg PO BID Qty: 60 4RF Myrbetriq 25 mg tablet extended release 24 hr 25 mg PO Q24H Qty: 30 12RF levothyroxine [Synthroid] 150 mcg tablet 150 mcg PO DAILY (DME) diabetic shoes with 3 sets of insoles See Rx Instructions .Route .MEDSUPPLY Qty: 1 0RF Rx Instructions: As directed by HOME pioglitazone 45 mg tablet 45 mg PO QAM amlodipine 10 mg tablet 10 mg PO QAM raloxifene 60 mg tablet 60 mg PO QAM allopurinol 300 mg tablet 300 mg PO QAM esomeprazole magnesium 20 mg capsule,delayed release(DR/EC) 20 mg PO QAM duloxetine 30 mg capsule,delayed release(DR/EC) 30 mg PO QAM metoprolol tartrate 25 mg Tablet 25 mg PO BID@0900,2100 Qty: 60 0RF levothyroxine [Synthroid] 137 mcg tablet 150 mcg PO QAM hydrocodone-acetaminophen 5-300 mg tablet 1 tab PO Q4H PRN (Reason: pain) Qty: 20 0RF tramadol 50 mg tablet 50 mg PO Q6H PRN (Reason: pain) Qty: 14 0RF insulin degludec 100 unit/mL (3 mL) insulin pen 60 unit SUBCUT DAILY Qty: 3 0RF Discharge Orders: Discharge ED (Routine); Ordered 02/02/24 Ordered By: Rajesh Arcos Referrals: Delmer Green, [Primary Care Provider] - Discharge Diet: Advance as tolerated Discharge Activity: Resume usual activity Patient Instructions: Leg Edema (ED), Leg Pain (ED) Coding Level of Care Code ED Flatwork Finisher for Adriana Rankin
[2024-02-02 16:04] LABS: Basophils # 0.1 10^3/uL (0.0-0.1); Basophils % 0.8 %; Eosinophils # 0.3 10^3/uL (0.0-0.8); Eosinophils % 3.5 %; Hematocrit 43.5 % (36-47); Lymphocytes # 1.9 10^3/uL (0.8-4.8); Lymphocytes % 21.4 %; Mean Corpuscular HGB Conc 30.8 g/dL (30-55); Mean Corpuscular Hemoglobin 28.2 pg (27-33); Mean Corpuscular Volume 91.6 fl (85-98); Mean Platelet Volume 10.1 fL (7.4-10.4); Monocytes # 0.9 10^3/uL (0.2-0.9); Monocytes % 10.7 %; Neutrophils % 62.3 %; Nucleated Red Blood Cells % 0 %; Platelet Count 339 10^3/cmm (157-399); Red Blood Count 4.75 10^6/uL (3.85-5.65); Red Cell Distribution Width 14.1 % (12.1-15.1); White Blood Count 8.66 10^3/uL (3.29-11.43)
[2024-02-02] MEDS: ondansetron 2 mg/ML SDV 2 mL 4 MG IVP (16:08)
[2024-02-02] MEDS: morphine 4 mg/mL SDV 1 mL IVP (16:08)
[2024-02-02 16:20] VITALS: BP 149/92; RESP 16; O2SAT 96
[2024-02-02 16:46] LABS: Alanine Aminotransferase 10 U/L (0-33); Albumin Level 3.5 g/dL (3.5-5.2); Alkaline Phosphatase 138 U/L (35-105); Blood Urea Nitrogen 25 mg/dL (8-23); Calcium 8.3 mg/dL (8.5-10.5); Carbon Dioxide 28 mmol/L (22-29); Chloride 102 mmol/L (98-107); Creatinine Clr Calc Pharmacy 87.5547; Globulin 2.9 g/dL (1.3-4.6); Glucose 177 mg/dL (65-115); NT Pro B Type Natriuretic Pept 118 pg/mL (0-125); Osmolality Calculated 301 mOsm/kg (285-295); Sodium 141 mmol/L (136-145); Total Bilirubin 0.7 mg/dL (0.15-1.2); Total Protein 6.4 g/dL (6.6-8.7)
--- NOTE | 2024-02-02 16:55 | PC.NURSE ---
US in room
[2024-02-02 16:56] LABS: Aspartate Amino Transferase 12 U/L (0-32)
[2024-02-02] MEDS: FUROsemide 10 mg/mL SDV 10mL 60 MG IVP (17:32)
[2024-02-02 17:34] VITALS: BP 145/64; PULSE 61; RESP 18; O2SAT 98
[2024-02-02 18:29] VITALS: BP 147/86; PULSE 64; RESP 20; O2SAT 96
== END 2024-02-02 18:30 | disposition home or self-care (01) ==
PROVIDERS: Emergency Provider Emergency Medicine; PCP Internal Medicine
DX: M79.605 Pain in left leg (principal); R60.0 Localized edema; I10 Essential (primary) hypertension; E07.9 Disorder of thyroid, unspecified; E11.9 Type 2 diabetes mellitus without complications; Z79.890 Hormone replacement therapy; Z79.4 Long term (current) use of insulin; Z79.899 Other long term (current) drug therapy
CPT/HCPCS: 73590; 73610; 80053; 83880; 85025; 93971; 96374; 96375; 99285; J1940; J2270; J2405

== ENCOUNTER → 2024-02-09 10:39 | Outpatient (BNVA) | payer MEDICARE, MEDICAID, SELFPAY | PROVIDERS: PCP Internal Medicine; Visit Provider Internal Medicine | DX: E11.42 Type 2 diabetes mellitus with diabetic polyneuropathy (principal); E55.9 Vitamin D deficiency, unspecified; M81.0 Age-related osteoporosis without current pathological fracture; Z79.4 Long term (current) use of insulin; Z79.85 Long-term (current) use of injectable non-insulin antidiabetic drugs | CPT/HCPCS: 36415; 80053; 82306; 82310; 83970; 84439; 84443; 99204 ==

== ENCOUNTER → 2024-02-25 11:36 | Outpatient (BNVA) | payer MEDICARE, MEDICAID, SELFPAY | PROVIDERS: PCP Internal Medicine; Visit Provider Internal Medicine | DX: E55.9 Vitamin D deficiency, unspecified (principal); M81.0 Age-related osteoporosis without current pathological fracture; E11.22 Type 2 diabetes mellitus with diabetic chronic kidney disease; N18.30 Chronic kidney disease, stage 3 unspecified; E66.01 Morbid (severe) obesity due to excess calories; Z79.890 Hormone replacement therapy; Z79.4 Long term (current) use of insulin; Z68.44 Body mass index [BMI] 60.0-69.9, adult; Z79.85 Long-term (current) use of injectable non-insulin antidiabetic drugs | CPT/HCPCS: 99215 ==

== ENCOUNTER → 2024-04-04 15:32 | Outpatient (BNVA) | payer MEDICARE, MEDICAID, SELFPAY | PROVIDERS: PCP Internal Medicine; Visit Provider Specialist | DX: M25.562 Pain in left knee (principal); Z96.653 Presence of artificial knee joint, bilateral | CPT/HCPCS: 73560; 73565; 99214 ==

== ENCOUNTER 2024-06-10 07:39 | Outpatient (CLI) | payer MEDICARE, MEDICAID, SELFPAY ==
--- NOTE | 2024-06-10 08:00 | NM_ITS ---
WS: [id number] THREE-PHASE BONE SCAN HISTORY: post total knee replacement COMPARISON: 04/04/2024 LEFT knee Patient is is injected with 26.9 mCi Tc99m HDP intravenously. Immediate angiographic phase imaging is performed over the area of concern. Static blood pool imaging also performed. Two-hour whole-body sc intigrams performed in anterior and posterior projections. Additional large field of view imaging sub mitted as necessary. Bilateral prior knee arthroplasties. Normal angiographic imaging. On the blood pool phase imaging the re is mild increase uptake surrounding the prosthesis in the proximal tibias slightly greater on the LEFT. On the delayed images there is marked intense uptake involving the LEFT tibial metaphysis. There is a lucency present on the radiograph and this could potentially represent a fracture. Intermediate upta ke along the RIGHT tibial plateau. No recent radiographs. The radiograph from 03/31/2023 demonstrate s ome very mild cortical thinning along the lateral tibial metaphysis. Normal soft tissue uptake to the bony skeleton. Mild AC joint arthritis. NM/NM bone 3 phase 52184 IMPRESSION: 1. Intense uptake involving the proximal LEFT tibia at the base of the tibial prosthesis. On the recent radiograph there is a lucency present. This could pot entially represent an occult fracture. Mild hyperemia on the blood pool imaging . 2. Intermediate uptake involving the RIGHT knee tibial plateau prosthesis. Cou ld potentially represent mild loosening. No recent radiographs.
== END 2024-06-10 07:40 | disposition home or self-care (01) ==
PROVIDERS: PCP Internal Medicine; Visit Provider Specialist
DX: M17.0 Bilateral primary osteoarthritis of knee (principal); R93.7 Abnormal findings on diagnostic imaging of other parts of musculoskeletal system
CPT/HCPCS: 78315; A9561

== ENCOUNTER → 2024-07-18 13:04 | Outpatient (BNVA) | payer MEDICARE, MEDICAID, SELFPAY | PROVIDERS: PCP Internal Medicine; Visit Provider Specialist | DX: M25.562 Pain in left knee (principal); Z96.653 Presence of artificial knee joint, bilateral; E66.01 Morbid (severe) obesity due to excess calories; Z68.43 Body mass index [BMI] 50.0-59.9, adult | CPT/HCPCS: 99214 ==

== ENCOUNTER → 2024-08-29 11:33 | Outpatient (BNVA) | payer MEDICARE, MEDICAID, SELFPAY | PROVIDERS: PCP Nurse Practitioner Family; Visit Provider Internal Medicine | DX: M81.0 Age-related osteoporosis without current pathological fracture; E11.22 Type 2 diabetes mellitus with diabetic chronic kidney disease; N18.30 Chronic kidney disease, stage 3 unspecified; E55.9 Vitamin D deficiency, unspecified; E66.01 Morbid (severe) obesity due to excess calories; Z79.4 Long term (current) use of insulin; Z79.85 Long-term (current) use of injectable non-insulin antidiabetic drugs; Z79.890 Hormone replacement therapy | CPT/HCPCS: 99214 ==

== ENCOUNTER → 2024-12-15 08:21 | Outpatient (BNVA) | payer MEDICARE, MEDICAID, SELFPAY | PROVIDERS: PCP Nurse Practitioner Family; Visit Provider Internal Medicine | DX: E11.9 Type 2 diabetes mellitus without complications (principal); M81.0 Age-related osteoporosis without current pathological fracture; E11.22 Type 2 diabetes mellitus with diabetic chronic kidney disease; N18.30 Chronic kidney disease, stage 3 unspecified; E55.9 Vitamin D deficiency, unspecified | CPT/HCPCS: 99214 ==

== ENCOUNTER → 2025-04-10 08:01 | Outpatient (BNVA) | payer MEDICARE, SELFPAY | PROVIDERS: PCP Nurse Practitioner Family; Visit Provider Internal Medicine | DX: E11.22 Type 2 diabetes mellitus with diabetic chronic kidney disease (principal); N18.30 Chronic kidney disease, stage 3 unspecified; E55.9 Vitamin D deficiency, unspecified; M81.0 Age-related osteoporosis without current pathological fracture | CPT/HCPCS: 99214 ==